=== PATIENT | male | born 1945 | race Caucasian/White ===

== ENCOUNTER 2018-04-17 11:49 | Inpatient (IN) | payer MEDICARE, OTHER ==
[~2018-04-17] VITALS: Ht 172.7 cm; Wt 76.0 kg
--- NOTE | 2018-04-17 12:20 | EKG ---
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
--- NOTE | 2018-04-17 12:28 | PHYS DOC ---
Adult General Chief Complaint Chief Complaint: SYNCOPE HPI HPI Patient is a 72 year old m who presents to the ED for evaluation s/p syncopal episode. pt with pmhx significant for CAD s/p 5 vessel CABG, A-fib on Xarelto, and CHF with EF of 20% s/p defibrillator placement. Pt reports compliance with Xarelto with no missed doses in the past 2 weeks. Takes Lasix 80mg QD. Reports significant edema approx 3 weeks ago that has been slowly improving. States that Mobile Sales Technician took him off of all BP medications 2/2 hypotension. Reports intermittently has symptomatic orthostatic hypotension. Resides in [place]. Currently traveling to [place] for hunting. Woke up and drove from [place] this am. Was at [employer] to buy a hunting license. Has no recall of events leading to him having a syncopal episode in the parking lot. Found by bystander. Was unconscious but had a pulse. Pt unable to recall any preceding CP , SOB, palpitations. Does not recall his defib discharging. Denies any current pain. States that he feels his baseline SOB. Uses 2L of O2 PRN at home. Tdap UTD Review of Systems Review of Systems Constitutional: Denies fever or chills [] Eyes: Denies change in visual acuity, redness, or eye pain [] HENT: Denies nasal congestion or sore throat [] Respiratory: Denies cough or shortness of breath [] Cardiovascular: No chest pain, no orthopnea, LE edema present GI: Denies abdominal pain, nausea, vomiting, bloody stools or diarrhea [] : Denies dysuria or hematuria [] Musculoskeletal: Denies back pain or joint pain [] Integument: Denies rash or skin lesions [] Neurologic: Denies headache, focal weakness or sensory changes [] Endocrine: Denies polyuria or polydipsia [] All other systems were reviewed and found to be within normal limits, except as documented in this note. Current Medications Current Medications Current Medications Medications (Trade) Dose Ordered Sig/Roxanne Start Time Stop Time Status Last Admin Dose Admin Potassium Chloride (Klor-Con) 40 meq 1X ONCE 04/17/18 13:30 04/17/18 13:31 DC 04/17/18 13:48 40 MEQ Allergies Allergies Allergies Coded Allergies Type Severity Reaction Last Updated Verified No Known Drug Allergies 11/1/18 No Physical Exam Physical Exam Constitutional: Well developed, well nourished, non-toxic appearing HENT: Normocephalic, 3 x 4 cm hematoma to the left temporal region with overlying abrasion Eyes: PERRLA, EOMI, Neck: C-collar in place, no midline spinal tenderness Cardiovascular: Irregularly irregular rate with +2 out of 4 bilateral radial pulses. Lungs & Thorax: Bilateral breath sounds clear to auscultation [] Abdomen: Bowel sounds normal, soft, no tenderness, no masses, no pulsatile masses. [] Skin: Abrasion to scalp as noted above. Abrasion to left elbow. Back: No tenderness, no CVA tenderness. [] Extremities: Trace pitting edema to bilateral lower extremities, bilateral DP pulses +2 out of 4, intact range of motion of major joints. Neurologic: Alert and oriented X 3, nerves II through XII intact bilaterally, normal motor function, normal sensory function, no focal deficits noted. [] Psychologic: Affect normal, judgement normal, mood normal. [] Current Patient Data Vital Signs Vital Signs Date Time Temp Pulse Resp B/P (MAP) Pulse Ox O2 Delivery O2 Flow Rate FiO2 04/17/18 11:49 97.9 72 24 104/76 (85) 92 Room Air 97.9 Lab Values Laboratory Tests Test 04/17/18 12:02 White Blood Count 8.4 x10^3/uL (4.0-11.0) Red Blood Count 4.79 x10^6/uL (4.30-5.70) Hemoglobin 15.1 g/dL (13.0-17.5) Hematocrit 45.4 % (39.0-53.0) Mean Corpuscular Volume 95 fL (79-100) Mean Corpuscular Hemoglobin 32 pg (25-35) Mean Corpuscular Hemoglobin Concent 33 g/dL (31-37) Red Cell Distribution Width 19.2 % (11.5-14.5) H Platelet Count 119 x10^3/uL (140-400) L Neutrophils (%) (Auto) 72 % (31-73) Lymphocytes (%) (Auto) 12 % (24-48) L Monocytes (%) (Auto) 13 % (0-9) H Eosinophils (%) (Auto) 2 % (0-3) Basophils (%) (Auto) 1 % (0-3) Neutrophils # (Auto) 6.0 x10^3uL (1.8-7.7) Lymphocytes # (Auto) 1.0 x10^3/uL (1.0-4.8) Monocytes # (Auto) 1.1 x10^3/uL (0.0-1.1) Eosinophils # (Auto) 0.2 x10^3/uL (0.0-0.7) Basophils # (Auto) 0.1 x10^3/uL (0.0-0.2) Prothrombin Time 33.4 SEC (11.7-14.0) H Prothrombin Time INR 3.4 (0.8-1.1) H PTT 48 SEC (24-38) H Sodium Level 142 mmol/L (136-145) Potassium Level 2.9 mmol/L (3.5-5.1) *L Chloride Level 97 mmol/L (98-107) L Carbon Dioxide Level 34 mmol/L (21-32) H Anion Gap 11 (6-14) Blood Urea Nitrogen 81 mg/dL (8-26) H Creatinine 3.2 mg/dL (0.7-1.3) H Estimated GFR (Cockcroft-Gault) 19.2 BUN/Creatinine Ratio 25 (6-20) H Glucose Level 108 mg/dL (70-99) H Calcium Level 9.0 mg/dL (8.5-10.1) Magnesium Level 2.6 mg/dL (1.8-2.4) H Total Bilirubin 3.1 mg/dL (0.2-1.0) H Aspartate Amino Transferase (AST) 25 U/L (15-37) Alanine Aminotransferase (ALT) 23 U/L (16-63) Alkaline Phosphatase 118 U/L (46-116) H Troponin I Quantitative 0.040 ng/mL (0.000-0.055) AB-Ltr-K-Type Natriuretic Peptide 3200 pg/mL (0-124) H Total Protein 7.8 g/dL (6.4-8.2) Albumin 3.1 g/dL (3.4-5.0) L Albumin/Globulin Ratio 0.7 (1.0-1.7) L Lipase 267 U/L (73-393) Ethyl Alcohol Level < 10 mg/dL (0-10) Laboratory Tests 04/17/18 12:02 Laboratory Tests 04/17/18 12:02 EKG EKG []EKG: Normal sinus rhythm, right bundle branch block, heart rate 100, no significant ST segment changes. Radiology/Procedures Radiology/Procedures CXR: Impression: 1. There are small bilateral pleural effusions. There is airspace opacity bilaterally greater of the lung bases which may be due to edema or infiltrates, also perihilar opacity which suggestive of edema. Constellation of findings could be due to left ventricular failure. There is nonspecific opacity at the right lung apex possibly pleural based, attention on follow-up advised as underlying mass not excluded. Electronically signed by: Soren Antunez MD (04/17/2018 12:44 PM) [facility] [] CT Head/Neck Impression: 1. No acute intracranial abnormality is identified. Cervical spine CT Comparison: None Findings: No acute cervical spine fracture is identified. Cervical vertebral body stature is preserved. There is minimal grade 1 anterior spondylolisthesis C3-C4 and C4-5. There is multilevel cervical facet degenerative change. There is moderate to severe narrowing of the left C3-4 neural foramen due to facet and uncovertebral degenerative change, minimal narrowing on the left at C4-5. No significant cervical spinal stenosis is identified on this nonmyelographic exam. Atlanto-axial distance is within normal limits. There is appropriate alignment of lateral masses of C1 relative to C2. Occipital condylar-C1 relationship is maintained. There is mild degenerative disc disease greater posteriorly at C3-4, also very minimally at C4-5. There is probable moderate size right pleural effusion which is not fully included. There is atherosclerotic calcification carotid arteries in the neck bilaterally. Impression: 1. No acute cervical spine fracture is identified. 2. There is moderate to severe narrowing of the left C3-4 neural foramen due to facet and uncovertebral degenerative change. 3. Not fully included, there is likely moderate size right pleural effusion. Electronically signed by: Soren Antunez MD (04/17/2018 1:01 PM) [facility] Course & Med Decision Making Course & Med Decision Making Pertinent Labs and Imaging studies reviewed. (See chart for details) []Pt with significant syncopal event in setting of significant underlying cardiac history. Pt unable to recall all home medications. I attempted to speak with the pt's Mobile Sales Technician but he was not in the office today and the staff refused to provide any information for continuity of care. Records request was sent. Patient has remained slightly hypotensive with systolic blood pressure 85- 90. Patient denies any symptoms and states that this is his baseline. Patient has not had any chest pain. Interrogation of his [employer] device has been requested to determine if it discharged but has not been completed. Discussed with Dr. Morales technology professional for hospital service who is agreeable to admission. Patient will be admitted to acute telemetry bed as he remains somewhat critically ill. Potassium correction started in the ED. Pt confirmed Full Code status. Dragon Disclaimer Dragon Disclaimer This electronic medical record was generated, in whole or in part, using a voice recognition dictation system. Departure Departure Impression: Primary Impression: Syncope Additional Impression: Hypokalemia Disposition: ADMITTED INPATIENT Admitting Physician: Other Condition: GUARDED Problem Qualifiers NOEMÍ SHELTON DO Apr 17, 2018 12:28
[2018-04-17 12:29] LABS: BASO # 0.1 x10^3/uL (0.0-0.2); BASO % 1 % (0-3); EOS # 0.2 x10^3/uL (0.0-0.7); EOS % 2 % (0-3); HEMATOCRIT 45.4 % (39.0-53.0); HEMOGLOBIN 15.1 g/dL (13.0-17.5); LYMPH % 12 % (24-48); MEAN CORPUSCULAR HEMOGLOBIN 32 pg (25-35); MEAN CORPUSCULAR HGB CONC 33 g/dL (31-37); MEAN CORPUSCULAR VOLUME 95 fL (79-100); MONO # 1.1 x10^3/uL (0.0-1.1); MONO % 13 % (0-9); NEUT % 72 % (31-73); PLATELET COUNT 119 x10^3/uL (140-400); RED BLOOD COUNT 4.79 x10^6/uL (4.30-5.70); RED CELL DISTRIBUTION WIDTH 19.2 % (11.5-14.5); WHITE BLOOD COUNT 8.4 x10^3/uL (4.0-11.0)
[2018-04-17 12:43] LABS: ALBUMIN 3.1 g/dL (3.4-5.0); ALBUMIN/GLOBULIN RATIO 0.7 (1.0-1.7); CREATININE 3.2 mg/dL (0.7-1.3); GFR 19.2; MAGNESIUM 2.6 mg/dL (1.8-2.4); TOTAL BILIRUBIN 3.1 mg/dL (0.2-1.0); TOTAL PROTEIN 7.8 g/dL (6.4-8.2)
[2018-04-17 12:47] LABS: POTASSIUM 2.9 mmol/L (3.5-5.1)
--- NOTE | 2018-04-17 12:47 | RAD ---
CHEST AP ONLY History: SYNCOPE Comparison: None. Findings: Single view of the chest is submitted. There has been a median sternotomy. There is right electronic cardiac device. Pericardial cardiac silhouette is somewhat enlarged. There are small bilateral pleural effusions. There is airspace opacity of the bilateral lung bases greater on the right, also mild perihilar opacity bilaterally. There is also mild right apical opacity, possibly pleural-based. Impression: 1. There are small bilateral pleural effusions. There is airspace opacity bilaterally greater of the lung bases which may be due to edema or infiltrates, also perihilar opacity which suggestive of edema. Constellation of findings could be due to left ventricular failure. There is nonspecific opacity at the right lung apex possibly pleural based, attention on follow-up advised as underlying mass not excluded. Electronically signed by: Soren Antunez MD (04/17/2018 12:44 PM) [facility]
[2018-04-17 12:55] LABS: PROTHROMBIN TIME PATIENT 33.4 SEC (11.7-14.0)
--- NOTE | 2018-04-17 13:04 | RAD ---
CT head and cervical spine without contrast History: TRAUMA/SYNCOPE Technique: Noncontrast CT imaging was performed of the head and cervical spine. Multiplanar reconstruction images are submitted. Exposure: One or more of the following individualized dose reduction techniques were utilized for this examination: 1. Automated exposure control 2. Adjustment of the mA and/or kV according to patient size 3. Use of iterative reconstruction technique. Head CT Comparison: None Findings: No acute extra-axial or parenchymal hemorrhage is identified. There is no significant intra-axial mass effect, midline shift, or extra-axial fluid collection. The carrillo-white differentiation of the major vascular territories is preserved. Ventricular size is within normal limits. There is mild supratentorial involutional change. The mastoid air cells and the visualized paranasal sinuses are aerated. There is no significant focal calvarial abnormality. There is left parietal region scalp hematoma. Impression: 1. No acute intracranial abnormality is identified. Cervical spine CT Comparison: None Findings: No acute cervical spine fracture is identified. Cervical vertebral body stature is preserved. There is minimal grade 1 anterior spondylolisthesis C3-C4 and C4-5. There is multilevel cervical facet degenerative change. There is moderate to severe narrowing of the left C3-4 neural foramen due to facet and uncovertebral degenerative change, minimal narrowing on the left at C4-5. No significant cervical spinal stenosis is identified on this nonmyelographic exam. Atlanto-axial distance is within normal limits. There is appropriate alignment of lateral masses of C1 relative to C2. Occipital condylar-C1 relationship is maintained. There is mild degenerative disc disease greater posteriorly at C3-4, also very minimally at C4-5. There is probable moderate size right pleural effusion which is not fully included. There is atherosclerotic calcification carotid arteries in the neck bilaterally. Impression: 1. No acute cervical spine fracture is identified. 2. There is moderate to severe narrowing of the left C3-4 neural foramen due to facet and uncovertebral degenerative change. 3. Not fully included, there is likely moderate size right pleural effusion. Electronically signed by: Soren Antunez MD (04/17/2018 1:01 PM) [id number]
[2018-04-17] MEDS ORDERED: POTASSIUM CHLORIDE 20 MEQ TABLET.ER. PO ONE (13:30)
[2018-04-17 14:36] LABS: BILIRUBIN,URINE NEGATIVE (NEG); CLARITY,URINE CLEAR; COLOR,URINE YELLOW; NITRITE,URINE NEGATIVE (NEG); PH,URINE 6.5; PROTEIN,URINE NEGATIVE (NEG-TRACE)
[2018-04-17 15:08] LABS: BACTERIA,URINE 0 /HPF (0-FEW); HYALINE CASTS, URINE FEW /HPF; RBC,URINE RARE /HPF (0-2); WBC,URINE RARE /HPF (0-4)
--- NOTE | 2018-04-17 16:03 | PDOC1 ---
History and Physical Date of Admission Date of Admission DATE: 04/17/18 TIME: 16:02 Source Source: Patient History of Present Illness History of Present Illness 72 yo M w/ PMHx CAD s/p 5 vessel CABG, A-fib on Xarelto, reduced ejection fraction heart failure (EF 20%) s/p AICD placement, HTN, chronic hypoxic respiratory failure, prior mycobacterial infection who presents to the ED for evaluation s/p syncopal episode. Pt reports compliance with Xarelto with no missed doses in the past 2 weeks. Takes Lasix 80mg QD and significant edema approx 3 weeks ago that has been slowly improving after he started taking zaroxyln 10mg daily, now feels vast improvement. He has been symptomatically orthostatic and stopped in [place] last night due to some dizziness. 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 Currently traveling for a hunting trip. Woke up and drove from [place] this am. Was at [employer] to buy a hunting license today and awoke in the ED. Per EMS had a witnessed syncopal episode in the parking lot. Was unconscious but had a pulse. No prodromal symptoms, does not recall his defib discharging, states it never has before discharged. He denies palpitations, CP, does endorse shortness of breath.. 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 Denies any current pain. States that he feels his baseline SOB. Uses 2L of O2 in a concentrator he was just prescribed to have. He was found in ED positive for orthostasis and with Cr of 3.2 and potassium of 2.9, replaced. CT head showed no intracranial abnormality and 1. No acute cervical spine fracture is identified. 2. There is moderate to severe narrowing of the left C3- 4 neural foramen due to facet and uncovertebral degenerative change. 3. Not fully included, there is likely moderate size right pleural effusion. 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 Past Medical History Cardiovascular: CAD (CABG x5), CHF, HTN Pulmonary: Pneumonia (Atypical mycobacterial PNA) GI: No pertinent hx Heme/Onc: No pertinent hx Hepatobiliary: No pertinent hx Psych: No pertinent hx Infectious disease: Other (Atypical pneumonia) ENT: Allergic Rhinitis Renal/: No pertinent hx Endocrine: No pertinent hx Dermatology: No pertinent hx Past Surgical History Past Surgical History: Pacemaker (AICD), CABG Family History Family History: Chronic Bronchitis, Coronary Artery Disease Social History Smoke: No ALCOHOL: none Drugs: None Current Problem List Problem List Problems Medical Problems: (1) Hypokalemia Status: Acute Current Medications Current Medications Current Medications Potassium Chloride (Klor-Con) 40 meq 1X ONCE PO Last administered on at 13:48; Start 04/17/18 at 13:30; Stop 04/17/18 at 13:31; Status DC Allergies Allergies: Coded Allergies: No Known Drug Allergies (Unverified , 04/17/18) ROS General: YES: Fatigue, Malaise; No: Chills, Night Sweats, Appetite, Other PSYCHOLOGICAL ROS: No: Anxiety, Behavioral Disorder, Concentration difficultie , Decreased libido, Depression, Disorientation, Hallucinations, Hostility, Irritablity, Memory difficulties, Mood Swings, Obsessive thoughts, Physical abuse, Sexual abuse, Sleep disturbances, Suicidal ideation, Other Eyes: No Blurry vision, No Decreased vision, No Double vision, No Dry eyes, No Excessive tearing, No Eye Pain, No Itchy Eyes, No Loss of vision, No Photophobia , No Scotomata, No Uses contacts, No Uses glasses, No Other HEENT: No: Heacaches, Visual Changes, Hearing change, Nasal congestion, Nasal discharge, Oral lesions, Sinus pain, Sore Throat, Epistaxis, Sneezing, Snoring, Tinnitus, Vertigo, Vocal changes, Other ALLERGY AND IMMUNOLOGY: YES: Nasal Congestion; No: Hives, Insect Bite Sensitivity, Itchy/Watery Eyes, Post Nasal Drip, Seasonal Allergies, Other Hematological and Lymphatic: No: Bleeding Problems, Blood Clots, Blood Transfusions, Brusing, Night Sweats, Pallor, Swollen Lymph Nodes, Other ENDOCRINE: No: Breast Changes, Galactorrhea, Hair Pattern Changes, Hot Flashes , Malaise/lethargy, Mood Swings, Palpitations, Polydipsia/polyuria, Skin Changes , Temperature Intolerance, Unexpected Weight Changes, Other Respiratory: YES: Cough, Shortness of breath; No: Hemoptysis, Orthopnea, Pleuritic Pain, SOB with excertion, Sputum Changes , Stridor, Tachypnea, Wheezing, Other Cardiovascular: yes Orthopnea, yes Edema, yes Lt Headedness; No Chest Pain, No Palpitations, No Paroxysmal Noc. Dyspnea, No Other Gastrointestinal: No Nausea, No Vomiting, No Abdominal Pain, No Diarrhea, No Constipation, No Melena, No Hematochezia, No Other Genitourinary: No Dysuria, No Frequency, No Incontinence, No Hematuria, No Retention, No Discharge, No Urgency, No Pain, No Flank Pain, No Other, No , No , No , No , No , No , No Neurological: No Behavorial Changes, No Bowel/Bladder ControlChng, No Confusion , No Dizziness, No Gait Disturbance, No Headaches, No Impaired Coord/balance, No Memory Loss, No Numbness/Tingling, No Seizures, No Speech Problems, No Tremors, No Visual Changes, No Weakness, No Other Skin: No Dry Skin, No Eczema, No Hair Changes, No Lumps, No Mole Changes, No Mottling, No Nail Changes, No Pruritus, No Rash, No Skin Lesion Changes, No Other, No Acne Physical Exam General: Alert, Oriented X3, Cooperative, No acute distress HEENT: PERRLA, EOMI, Mucous membr. moist/pink, Other (Left posterior abrasion on occiput) Lungs: Other (Decreased bibasilar breath sounds, fine crackles, no wheezes) Heart: S1S2, RRR, murmurs (2/6 CECILY), no jug vein distention Abdomen: Normal bowel sounds, Soft, No tenderness, No hepatosplenomegaly, No masses Extremities: No clubbing, No cyanosis, Normal pulses, No tenderness/swelling, Other (1+ edema up to knees bilaterally) Skin: Other (Stasis dermatitis) Neuro: Normal gait, Normal speech, Strength at 5/5 X4 ext, Normal tone, Sensation intact, Cranial nerves 3-12 NL, Reflexes 2+ Psych/Mental Status: Mental status NL, Mood NL Vitals Vitals Vital Signs Date Time Temp Pulse Resp B/P (MAP) Pulse Ox O2 Delivery O2 Flow Rate FiO2 04/17/18 14:00 90 18 96 Nasal Cannula 2.0 04/17/18 13:30 111/55 (73) 04/17/18 11:49 97.9 97.9 Labs Labs Laboratory Tests Test 04/17/18 12:02 11/1/18 14:00 White Blood Count 8.4 x10^3/uL (4.0-11.0) Red Blood Count 4.79 x10^6/uL (4.30-5.70) Hemoglobin 15.1 g/dL (13.0-17.5) Hematocrit 45.4 % (39.0-53.0) Mean Corpuscular Volume 95 fL (79-100) Mean Corpuscular Hemoglobin 32 pg (25-35) Mean Corpuscular Hemoglobin Concent 33 g/dL (31-37) Red Cell Distribution Width 19.2 % (11.5-14.5) Platelet Count 119 x10^3/uL (140-400) Neutrophils (%) (Auto) 72 % (31-73) Lymphocytes (%) (Auto) 12 % (24-48) Monocytes (%) (Auto) 13 % (0-9) Eosinophils (%) (Auto) 2 % (0-3) Basophils (%) (Auto) 1 % (0-3) Neutrophils # (Auto) 6.0 x10^3uL (1.8-7.7) Lymphocytes # (Auto) 1.0 x10^3/uL (1.0-4.8) Monocytes # (Auto) 1.1 x10^3/uL (0.0-1.1) Eosinophils # (Auto) 0.2 x10^3/uL (0.0-0.7) Basophils # (Auto) 0.1 x10^3/uL (0.0-0.2) Prothrombin Time 33.4 SEC (11.7-14.0) Prothromb Time International Ratio 3.4 (0.8-1.1) Activated Partial Thromboplast Time 48 SEC (24-38) Sodium Level 142 mmol/L (136-145) Potassium Level 2.9 mmol/L (3.5-5.1) Chloride Level 97 mmol/L (98-107) Carbon Dioxide Level 34 mmol/L (21-32) Anion Gap 11 (6-14) Blood Urea Nitrogen 81 mg/dL (8-26) Creatinine 3.2 mg/dL (0.7-1.3) Estimated GFR (Cockcroft-Gault) 19.2 BUN/Creatinine Ratio 25 (6-20) Glucose Level 108 mg/dL (70-99) Calcium Level 9.0 mg/dL (8.5-10.1) Magnesium Level 2.6 mg/dL (1.8-2.4) Total Bilirubin 3.1 mg/dL (0.2-1.0) Aspartate Amino Transf (AST/SGOT) 25 U/L (15-37) Alanine Aminotransferase (ALT/SGPT) 23 U/L (16-63) Alkaline Phosphatase 118 U/L (46-116) Troponin I Quantitative 0.040 ng/mL (0.000-0.055) QZ-Osb-S-Type Natriuretic Peptide 3200 pg/mL (0-124) Total Protein 7.8 g/dL (6.4-8.2) Albumin 3.1 g/dL (3.4-5.0) Albumin/Globulin Ratio 0.7 (1.0-1.7) Lipase 267 U/L (73-393) Ethyl Alcohol Level < 10 mg/dL (0-10) Urine Collection Type Unknown Urine Color Yellow Urine Clarity Clear Urine pH 6.5 Urine Specific Vader 1.010 Urine Protein Negative mg/dL (NEG-TRACE) Urine Glucose (UA) Negative mg/dL (NEG) Urine Ketones (Stick) Negative mg/dL (NEG) Urine Blood Negative (NEG) Urine Nitrite Negative (NEG) Urine Bilirubin Negative (NEG) Urine Urobilinogen Dipstick 1.0 mg/dL (0.2 mg/dL) Urine Leukocyte Esterase Negative (NEG) Urine RBC Rare /HPF (0-2) Urine WBC Rare /HPF (0-4) Urine Bacteria 0 /HPF (0-FEW) Urine Hyaline Casts Few /HPF Laboratory Tests Test 04/17/18 12:02 04/17/18 14:00 White Blood Count 8.4 x10^3/uL (4.0-11.0) Red Blood Count 4.79 x10^6/uL (4.30-5.70) Hemoglobin 15.1 g/dL (13.0-17.5) Hematocrit 45.4 % (39.0-53.0) Mean Corpuscular Volume 95 fL (79-100) Mean Corpuscular Hemoglobin 32 pg (25-35) Mean Corpuscular Hemoglobin Concent 33 g/dL (31-37) Red Cell Distribution Width 19.2 % (11.5-14.5) Platelet Count 119 x10^3/uL (140-400) Neutrophils (%) (Auto) 72 % (31-73) Lymphocytes (%) (Auto) 12 % (24-48) Monocytes (%) (Auto) 13 % (0-9) Eosinophils (%) (Auto) 2 % (0-3) Basophils (%) (Auto) 1 % (0-3) Neutrophils # (Auto) 6.0 x10^3uL (1.8-7.7) Lymphocytes # (Auto) 1.0 x10^3/uL (1.0-4.8) Monocytes # (Auto) 1.1 x10^3/uL (0.0-1.1) Eosinophils # (Auto) 0.2 x10^3/uL (0.0-0.7) Basophils # (Auto) 0.1 x10^3/uL (0.0-0.2) Prothrombin Time 33.4 SEC (11.7-14.0) Prothromb Time International Ratio 3.4 (0.8-1.1) Activated Partial Thromboplast Time 48 SEC (24-38) Sodium Level 142 mmol/L (136-145) Potassium Level 2.9 mmol/L (3.5-5.1) Chloride Level 97 mmol/L (98-107) Carbon Dioxide Level 34 mmol/L (21-32) Anion Gap 11 (6-14) Blood Urea Nitrogen 81 mg/dL (8-26) Creatinine 3.2 mg/dL (0.7-1.3) Estimated GFR (Cockcroft-Gault) 19.2 BUN/Creatinine Ratio 25 (6-20) Glucose Level 108 mg/dL (70-99) Calcium Level 9.0 mg/dL (8.5-10.1) Magnesium Level 2.6 mg/dL (1.8-2.4) Total Bilirubin 3.1 mg/dL (0.2-1.0) Aspartate Amino Transf (AST/SGOT) 25 U/L (15-37) Alanine Aminotransferase (ALT/SGPT) 23 U/L (16-63) Alkaline Phosphatase 118 U/L (46-116) Troponin I Quantitative 0.040 ng/mL (0.000-0.055) DJ-Meo-R-Type Natriuretic Peptide 3200 pg/mL (0-124) Total Protein 7.8 g/dL (6.4-8.2) Albumin 3.1 g/dL (3.4-5.0) Albumin/Globulin Ratio 0.7 (1.0-1.7) Lipase 267 U/L (73-393) Ethyl Alcohol Level < 10 mg/dL (0-10) Urine Collection Type Unknown Urine Color Yellow Urine Clarity Clear Urine pH 6.5 Urine Specific Vader 1.010 Urine Protein Negative mg/dL (NEG-TRACE) Urine Glucose (UA) Negative mg/dL (NEG) Urine Ketones (Stick) Negative mg/dL (NEG) Urine Blood Negative (NEG) Urine Nitrite Negative (NEG) Urine Bilirubin Negative (NEG) Urine Urobilinogen Dipstick 1.0 mg/dL (0.2 mg/dL) Urine Leukocyte Esterase Negative (NEG) Urine RBC Rare /HPF (0-2) Urine WBC Rare /HPF (0-4) Urine Bacteria 0 /HPF (0-FEW) Urine Hyaline Casts Few /HPF Images Images CT head and neck 1. No acute cervical spine fracture is identified. 2. There is moderate to severe narrowing of the left C3-4 neural foramen due to facet and uncovertebral degenerative change. 3. Not fully included, there is likely moderate size right pleural effusion. CXR - There has been a median sternotomy. There is right electronic cardiac device. Pericardial cardiac silhouette is somewhat enlarged. There are small bilateral pleural effusions. There is airspace opacity of the bilateral lung bases greater on the right, also mild perihilar opacity bilaterally. There is also mild right apical opacity, possibly pleural-based. Impression: 1. There are small bilateral pleural effusions. There is airspace opacity bilaterally greater of the lung bases which may be due to edema or infiltrates, also perihilar opacity which suggestive of edema. Constellation of findings could be due to left ventricular failure. There is nonspecific opacity at the right lung apex possibly pleural based, attention on follow-up advised as underlying mass not excluded. VTE Prophylaxis Ordered VTE Prophylaxis Devices: No VTE Pharmacological Prophylaxi: Yes Assessment/Plan Assessment/Plan Syncope and collapse - likely cardiac vs orthostatic. Needs AICD interrogation. Will cont cardiac meds, hold coreg for SBP < 90mmHg. Hold lasix and zaroxyln. Echo. Consult cardiology Acute renal failure - appears to be vasomotor nephropathy secondary to his large diuretic dosing. Hold diuretics for tonight, follow renal panel daily Hypokalemia - 2.9, replaced, will check mag and check K and mag daily. Could have played a role in arrhythmia causing his syncope CAD - CABG x5 somewhat stable on meds. will cont and monitor CHF - reduced EF, 20% by his report, states he is a possible LVAD/Transplant candidate per his rv servicer. Will need to interrogate his AICD. Cont BB, ASA , statin, need to hold LATISHA/ARB for renal insufficiency, will reduce dosing of his xarelto as well if ok with cardiology. 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 Wean O2 to 89% as tolerated FEN - Cardiac diet PPX - heparin FULL CODE Inpatient as he is a very chronically ill individual with acute renal failure, will be inpatient for at least 2 midnights. MACK HONEYCUTT MD Apr 17, 2018 16:02
[2018-04-17 20:00] VITALS: BP 103/76
[2018-04-17] MEDS ORDERED: MILK175T PO (20:32)
[2018-04-17] MEDS ORDERED: ONDANSETRON PF 4 MG/2 ML VIAL. IV PRN (21:45)
[2018-04-17] MEDS ORDERED: ACETAMINOPHEN 325 MG TABLET. PO PRN (21:45)
[2018-04-17] MEDS ORDERED: MORPHINE SULFATE 2 MG/ML VIAL. IV PRN (21:45)
[2018-04-17] MEDS ORDERED: 0.9 % SODIUM CHLORIDE 10 ML DISP.SYRIN. IV PRN (21:45)
[2018-04-17] MEDS: TEMAZEPAM 7.5 MG CAPSULE PO PRN (22:38)
[2018-04-17 23:41] VITALS: BP 91/64
[2018-04-17 23:42] VITALS: BP 88/52
[2018-04-17 23:43] VITALS: BP 92/60
[2018-04-18] VITALS (7 sets, daily range): BP systolic 83–108; BP diastolic 52–76
[2018-04-18] MEDS ORDERED: METO10TA5 PO (00:21)
[2018-04-18] MEDS ORDERED: RIVA10TA PO (00:21)
[2018-04-18] MEDS ORDERED: SIMV10TA3 PO (00:39)
[2018-04-18] MEDS ORDERED: COCO1000 PO (00:40)
[2018-04-18] MEDS ORDERED: UBID100C26 PO (00:40)
[2018-04-18] MEDS ORDERED: POTA99TA3 PO (00:40)
[2018-04-18] MEDS ORDERED: LACT1CAP24 PO (00:40)
[2018-04-18] MEDS ORDERED: AZEL137S3 NS (00:40)
[2018-04-18] MEDS ORDERED: FURO80TA3 PO (00:40)
[2018-04-18] MEDS ORDERED: BIOT25006 PO (00:40)
[2018-04-18] MEDS ORDERED: CARV25TA2 PO (00:40)
[2018-04-18] MEDS ORDERED: OMEG-165 PO (00:40)
[2018-04-18] MEDS ORDERED: [UNRECOGNIZED DRUG - CODE] PO (00:40)
[2018-04-18] MEDS ORDERED: CIDE600C PO (00:40)
[2018-04-18] MEDS ORDERED: MULT-690 PO (00:40)
[2018-04-18] MEDS ORDERED: FLAX10003 PO (00:40)
[2018-04-18] MEDS ORDERED: CINN500C2 PO (00:40)
[2018-04-18] MEDS ORDERED: TURM1CAP PO (00:40)
[2018-04-18] MEDS ORDERED: GARL10002 PO (00:40)
[2018-04-18] MEDS ORDERED: FLUT16SP NS (00:41)
[2018-04-18] MEDS ORDERED: CARVEDILOL 12.5 MG TABLET. PO SCH (08:00)
[2018-04-18 08:52] LABS: CALCIUM 8.4 mg/dL (8.5-10.1); CREATININE 2.9 mg/dL (0.7-1.3); GFR 21.6
[2018-04-18] MEDS ORDERED: NON FORMULARY ITEM (Potassium Gluconate 99 MG) PO SCH (09:00)
[2018-04-18] MEDS ORDERED: RIVAROXABAN 10 MG TABLET. PO SCH ×2 (09:00→21:00)
[2018-04-18] MEDS ORDERED: HEPARIN for SUB-Q USE 5,000 UNIT/ML VIAL. SQ SCH (09:00)
[2018-04-18] MEDS: SENNOSIDES/DOCUSATE 8.6/50MG TABLET. PO SCH ×2 (09:00→20:23)
[2018-04-18 09:01] LABS: POTASSIUM 2.9 mmol/L (3.5-5.1)
--- NOTE | 2018-04-18 09:02 | PDOC2 ---
NEUROLOGY CONSULT Date of Admission Date of Admission DATE: 04/18/18 TIME: 08:56 Reason for Consult Reason for Consult: Syncope, probably cardiac Referring Physician Referring Physician: Dr. Manjarrez Source Source: Chart review, Patient History of Present Illness History of Present Illness The patient is a 72-year-old right-handed male who fainted in the parking lot at [facility] yesterday. He has a known cardiomyopathy with ejection fraction of 20% with a true fibrillation, status-post a ICD placement and severe corner are diseased as post bypass surgery. He has fainted before. His defibrillator did not go off. There was no convulsive activity noted by onlookers. There is no time biting. There was no postictal confusion. He did have incontinence. He denies any history of stroke, seizure, head injury, transient ischemic attack symptoms. He's feeling better now, but his blood pressure is still running low this morning. 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 No alcohol or tobacco. Current Medications Current Medications Current Medications Potassium Chloride (Klor-Con) 40 meq 1X ONCE PO Last administered on at 13:48; Start 04/17/18 at 13:30; Stop 04/17/18 at 13:31; Status DC Sodium Chloride (Normal Saline Flush) 3 ml PRN DAILY PRN IV AFTER MEDS AND BLOOD DRAWS; Start 04/17/18 at 21:45 Ondansetron HCl (Zofran) 4 mg PRN Q6HRS PRN IV NAUSEA/VOMITING; Start 04/17/18 at 21:45 Morphine Sulfate (Morphine Sulfate) 2 mg PRN Q1HR PRN IV PAIN; Start 04/17/18 at 21:45 Acetaminophen (Tylenol) 650 mg PRN Q6HRS PRN PO Headaches, Temp > 101.5F; Start 04/17/18 at 21:45 Senna/Docusate Sodium (Senna Plus) 1 tab BID PO ; Start 11/2/18 at 09:00 Heparin Sodium (Porcine) (Heparin Sodium) 5,000 unit Q12HR SQ ; Start 04/18/18 at 09:00 Temazepam (Restoril) 7.5 mg PRN QHS PRN PO INSOMNIA Last administered on at 22:38; Start 04/17/18 at 22:00 Rivaroxaban (Xarelto) 10 mg DAILY PO ; Start 04/18/18 at 09:00 Simvastatin (Zocor) 5 mg HS PO ; Start 04/18/18 at 21:00 Carvedilol (Coreg) 25 mg BIDWMEALS PO ; Start 04/18/18 at 08:00 Non-Formulary Medication (Potassium Gluconate ) 99 mg DAILY PO ; Start 04/18/18 at 09:00; Status UNV Active Scripts Active Reported Fluticasone Propionate Nasal [place] (Fluticasone Propionate) 16 Gm [place].susp 2 [place] NS DAILY Potassium Gluconate 99 Mg Tablet 99 Mg PO DAILY Biotin 2,500 Mcg Capsule 5,000 Mcg PO DAILY Cinnamon (Cinnamon Bark) 500 Mg Capsule 1,000 Mg PO DAILY Apple Cider Vinegar (Cider Vinegar) 600 Mg Capsule 600 Mg PO BID Turmeric Complex 500 mg Cap (Turmeric/Turmeric Ext/Pepr Ext) 1 Each Capsule 1 Each PO DAILY L-Arginine (Arginine Hcl) 1,000 Mg Tablet 1,000 Mg PO DAILY Acidophilus Lactobacillus (Lactobacillus Acidophilus) 1 Each Capsule 1 Each PO DAILY Garlic 1,000 Mg Capsule 1,000 Mg PO DAILYWBKFT Furosemide 80 Mg Tablet 1 Tab PO DAILY Coconut Oil 1,000 Mg Capsule 1,000 Mg PO BID Centrum Silver Men Tablet (Multivit-Min/FA/Lycopen/Lutein) 1 Each Tablet 1 Each PO DAILY Coq-10 (Ubidecarenone) 100 Mg Capsule 100 Mg PO DAILY Flax Oil (Flaxseed Oil) 1,000 Mg Capsule 1,000 Mg PO TIDBFRMEAL Fish Oil 1,000 mg Softgel ([place]-3S/Dha/Epa/Fish Oil) 1 Each Capsule 1 Each PO TIDBFRMEAL Azelastine Hcl 137 Mcg/0.137 Ml [place].pump 2 [place] NS BID Carvedilol 25 Mg Tablet 1 Tab PO BID Simvastatin 10 Mg Tablet 5 Mg PO HS Xarelto (Rivaroxaban) 10 Mg Tablet 1 Tab PO DAILY Metolazone 10 Mg Tablet 10 Mg PO DAILY Milk Thistle 175 Mg Tablet 175 Mg PO DAILY Allergies Allergies: Coded Allergies: No Known Drug Allergies (Unverified , 04/17/18) ROS Review of System Negative for fevers, chills, weight loss, shortness of breath, chest pain, indigestion, hematochezia, melena, dysuria. Full 14-point review systems is negative. Physical Exam Physical Examination General: Well-developed, well-nourished, white male, in no acute distress HEENT: Normocephalic andatraumatic. Temporal arteriespulsatile and nontender. Neck: Supple without bruit, no meningismus Musculoskeletal: Stability:see neurologic. Gait exam:see neurologic. Tone:see neurologic. Strength:see neurologic. Neurological: Mental Status:intact, orientation, memory, attention span/concentration, language, fund of knowledge normal. Cranial Nerves:Pupils equal and reactive to light, extraocular movements areintact, visual cherry are full to confrontation. Facial sensation is normal. There is no facial asymmetry. Vestibulo-ocular reflex is intact. Palate elvates and tongue protrudes in midline. All other cranial related problems are negative except as mentioned before.Reflexes:2+ and symmetric with flexor plantar responses. Motor:5/5 strength with normal tone and bulk. Coordination:Finger-nose finger and heel-to -manzano testing are normal. Rapid alternating movements and fine finger movements are intact. Gait:Normal, including tandem. Sensory:Normal pinprick, vibration , light touch, proprioception. Vitals VITALS Vital Signs Date Time Temp Pulse Resp B/P (MAP) Pulse Ox O2 Delivery O2 Flow Rate FiO2 04/18/18 07:25 97.4 91 18 93/65 (74) 96 Nasal Cannula 2.0 97.4 Labs Labs Laboratory Tests Test 04/17/18 12:02 04/17/18 14:00 04/17/18 17:00 04/18/18 04:00 White Blood Count 8.4 x10^3/uL (4.0-11.0) Red Blood Count 4.79 x10^6/uL (4.30-5.70) Hemoglobin 15.1 g/dL (13.0-17.5) Hematocrit 45.4 % (39.0-53.0) Mean Corpuscular Volume 95 fL (79-100) Mean Corpuscular Hemoglobin 32 pg (25-35) Mean Corpuscular Hemoglobin Concent 33 g/dL (31-37) Red Cell Distribution Width 19.2 % (11.5-14.5) Platelet Count 119 x10^3/uL (140-400) Neutrophils (%) (Auto) 72 % (31-73) Lymphocytes (%) (Auto) 12 % (24-48) Monocytes (%) (Auto) 13 % (0-9) Eosinophils (%) (Auto) 2 % (0-3) Basophils (%) (Auto) 1 % (0-3) Neutrophils # (Auto) 6.0 x10^3uL (1.8-7.7) Lymphocytes # (Auto) 1.0 x10^3/uL (1.0-4.8) Monocytes # (Auto) 1.1 x10^3/uL (0.0-1.1) Eosinophils # (Auto) 0.2 x10^3/uL (0.0-0.7) Basophils # (Auto) 0.1 x10^3/uL (0.0-0.2) Prothrombin Time 33.4 SEC (11.7-14.0) Prothromb Time International Ratio 3.4 (0.8-1.1) Activated Partial Thromboplast Time 48 SEC (24-38) Sodium Level 142 mmol/L (136-145) Potassium Level 2.9 mmol/L (3.5-5.1) Chloride Level 97 mmol/L (98-107) Carbon Dioxide Level 34 mmol/L (21-32) Anion Gap 11 (6-14) Blood Urea Nitrogen 81 mg/dL (8-26) Creatinine 3.2 mg/dL (0.7-1.3) Estimated GFR (Cockcroft-Gault) 19.2 BUN/Creatinine Ratio 25 (6-20) Glucose Level 108 mg/dL (70-99) Calcium Level 9.0 mg/dL (8.5-10.1) Magnesium Level 2.6 mg/dL (1.8-2.4) 2.4 mg/dL (1.8-2.4) Total Bilirubin 3.1 mg/dL (0.2-1.0) Aspartate Amino Transf (AST/SGOT) 25 U/L (15-37) Alanine Aminotransferase (ALT/SGPT) 23 U/L (16-63) Alkaline Phosphatase 118 U/L (46-116) Troponin I Quantitative 0.040 ng/mL (0.000-0.055) 0.043 ng/mL (0.000-0.055) 0.043 ng/mL (0.000-0.055) WW-Ovr-V-Type Natriuretic Peptide 3200 pg/mL (0-124) Total Protein 7.8 g/dL (6.4-8.2) Albumin 3.1 g/dL (3.4-5.0) Albumin/Globulin Ratio 0.7 (1.0-1.7) Lipase 267 U/L (73-393) Ethyl Alcohol Level < 10 mg/dL (0-10) Urine Collection Type Unknown Urine Color Yellow Urine Clarity Clear Urine pH 6.5 Urine Specific [place] 1.010 Urine Protein Negative mg/dL (NEG-TRACE) Urine Glucose (UA) Negative mg/dL (NEG) Urine Ketones (Stick) Negative mg/dL (NEG) Urine Blood Negative (NEG) Urine Nitrite Negative (NEG) Urine Bilirubin Negative (NEG) Urine Urobilinogen Dipstick 1.0 mg/dL (0.2 mg/dL) Urine Leukocyte Esterase Negative (NEG) Urine RBC Rare /HPF (0-2) Urine WBC Rare /HPF (0-4) Urine Bacteria 0 /HPF (0-FEW) Urine Hyaline Casts Few /HPF Laboratory Tests Test 04/17/18 12:02 04/17/18 14:00 04/17/18 17:00 04/18/18 04:00 White Blood Count 8.4 x10^3/uL (4.0-11.0) Red Blood Count 4.79 x10^6/uL (4.30-5.70) Hemoglobin 15.1 g/dL (13.0-17.5) Hematocrit 45.4 % (39.0-53.0) Mean Corpuscular Volume 95 fL (79-100) Mean Corpuscular Hemoglobin 32 pg (25-35) Mean Corpuscular Hemoglobin Concent 33 g/dL (31-37) Red Cell Distribution Width 19.2 % (11.5-14.5) Platelet Count 119 x10^3/uL (140-400) Neutrophils (%) (Auto) 72 % (31-73) Lymphocytes (%) (Auto) 12 % (24-48) Monocytes (%) (Auto) 13 % (0-9) Eosinophils (%) (Auto) 2 % (0-3) Basophils (%) (Auto) 1 % (0-3) Neutrophils # (Auto) 6.0 x10^3uL (1.8-7.7) Lymphocytes # (Auto) 1.0 x10^3/uL (1.0-4.8) Monocytes # (Auto) 1.1 x10^3/uL (0.0-1.1) Eosinophils # (Auto) 0.2 x10^3/uL (0.0-0.7) Basophils # (Auto) 0.1 x10^3/uL (0.0-0.2) Prothrombin Time 33.4 SEC (11.7-14.0) Prothromb Time International Ratio 3.4 (0.8-1.1) Activated Partial Thromboplast Time 48 SEC (24-38) Sodium Level 142 mmol/L (136-145) Potassium Level 2.9 mmol/L (3.5-5.1) Chloride Level 97 mmol/L (98-107) Carbon Dioxide Level 34 mmol/L (21-32) Anion Gap 11 (6-14) Blood Urea Nitrogen 81 mg/dL (8-26) Creatinine 3.2 mg/dL (0.7-1.3) Estimated GFR (Cockcroft-Gault) 19.2 BUN/Creatinine Ratio 25 (6-20) Glucose Level 108 mg/dL (70-99) Calcium Level 9.0 mg/dL (8.5-10.1) Magnesium Level 2.6 mg/dL (1.8-2.4) 2.4 mg/dL (1.8-2.4) Total Bilirubin 3.1 mg/dL (0.2-1.0) Aspartate Amino Transf (AST/SGOT) 25 U/L (15-37) Alanine Aminotransferase (ALT/SGPT) 23 U/L (16-63) Alkaline Phosphatase 118 U/L (46-116) Troponin I Quantitative 0.040 ng/mL (0.000-0.055) 0.043 ng/mL (0.000-0.055) 0.043 ng/mL (0.000-0.055) XZ-Fpt-O-Type Natriuretic Peptide 3200 pg/mL (0-124) Total Protein 7.8 g/dL (6.4-8.2) Albumin 3.1 g/dL (3.4-5.0) Albumin/Globulin Ratio 0.7 (1.0-1.7) Lipase 267 U/L (73-393) Ethyl Alcohol Level < 10 mg/dL (0-10) Urine Collection Type Unknown Urine Color Yellow Urine Clarity Clear Urine pH 6.5 Urine Specific [place] 1.010 Urine Protein Negative mg/dL (NEG-TRACE) Urine Glucose (UA) Negative mg/dL (NEG) Urine Ketones (Stick) Negative mg/dL (NEG) Urine Blood Negative (NEG) Urine Nitrite Negative (NEG) Urine Bilirubin Negative (NEG) Urine Urobilinogen Dipstick 1.0 mg/dL (0.2 mg/dL) Urine Leukocyte Esterase Negative (NEG) Urine RBC Rare /HPF (0-2) Urine WBC Rare /HPF (0-4) Urine Bacteria 0 /HPF (0-FEW) Urine Hyaline Casts Few /HPF Images Images Head CT Comparison: None Findings: No acute extra-axial or parenchymal hemorrhage is identified. There is no significant intra-axial mass effect, midline shift, or extra-axial fluid collection. The carrillo-white differentiation of the major vascular territories is preserved. Ventricular size is within normal limits. There is mild supratentorial involutional change. The mastoid air cells and the visualized paranasal sinuses are aerated. There is no significant focal calvarial abnormality. There is left parietal region scalp hematoma. Impression: 1. No acute intracranial abnormality is identified. Cervical spine CT Comparison: None Findings: No acute cervical spine fracture is identified. Cervical vertebral body stature is preserved. There is minimal grade 1 anterior spondylolisthesis C3-C4 and C4-5. There is multilevel cervical facet degenerative change. There is moderate to severe narrowing of the left C3-4 neural foramen due to facet and uncovertebral degenerative change, minimal narrowing on the left at C4-5. No significant cervical spinal stenosis is identified on this nonmyelographic exam. Atlanto-axial distance is within normal limits. There is appropriate alignment of lateral masses of C1 relative to C2. Occipital condylar-C1 relationship is maintained. There is mild degenerative disc disease greater posteriorly at C3-4, also very minimally at C4-5. There is probable moderate size right pleural effusion which is not fully included. There is atherosclerotic calcification carotid arteries in the neck bilaterally. Impression: 1. No acute cervical spine fracture is identified. 2. There is moderate to severe narrowing of the left C3-4 neural foramen due to facet and uncovertebral degenerative change. 3. Not fully included, there is likely moderate size right pleural effusion. Assessment/Plan Assessment/Plan Impression: Cardiac syncope in a patient with known severe cardiac disease as described above, no evidence that he had a seizure or neurological event. The incontinence of course is not specific for seizures. Cervical spondylosis, no clinical evidence of radiculopathy or myelopathy. Recommendations: No additional neurological studies such as EEG required Neurology will follow only loosely the rest of this hospital stay. Thank you for letting me help with the patient's care. RAVEN TRIPP MD Apr 18, 2018 09:02
[2018-04-18] MEDS ORDERED: POTASSIUM CHLORIDE 20 MEQ TABLET.ER. PO ONE ×3 (09:45→14:00)
[2018-04-18] MEDS ORDERED: RIVA15TA PO (10:46)
[2018-04-18 11:08] LABS: PROTHROMBIN TIME PATIENT 35.5 SEC (11.7-14.0)
--- NOTE | 2018-04-18 11:58 | PDOC2 ---
CARDIAC CONSULT DATE OF CONSULT Date of Consult DATE: 04/18/18 TIME: 11:02 REASON FOR CONSULT Reason for Consult: CHF, syncope with AICD REFERRING PHYSICIAN Referring Physician: Saima SOURCE Source: Chart review, Patient HISTORY OF PRESENT ILLNESS HISTORY OF PRESENT ILLNESS This is a pleasant 72 yo male admitted for complains of passing out. He was coming from [place] which his permanent home stat and coming over for hunting. He stopped probably 6-[address] but admit of not hydrating self enough. He was at the parking lot heading towards [facility] and started feeling lightheaded and leaned on a white jason and the next thing he remembered was people standing in front of him. This appears to be a brief episodes. He had stress test about 2 months ago from his assistant construction superintendent and no other further recommendations after that but indicated that 20% part of his heart was . He recently had labs prior to his trip but was never called of the results including his renal function. He has not seen any insole channeler as an outpt in the past. He recently had acute CHF exacerbation and was placed on increased lasix at bid and curerently on daily 80 mg lasix with 10 mg of zaroxylyn. Denies any CP, SOA, palpitations. His valvular insufficiency has been known since his bypass in 2000 and no indication of surgery at that time. 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 PAST MEDICAL HISTORY Cardiovascular: AFIB (chronic ), CAD, CHF, HTN, Hyperlipidemia, Valve insufficiency (moderate MR and severe TR), Other (cardiomyopathy) Pulmonary: Pneumonia CENTRAL NERVOUS SYSTEM: Other (No pertinent history) GI: No pertinent hx Heme/Onc: Anemia NOS Hepatobiliary: No pertinent hx Psych: No pertinent hx Musculoskeletal: Osteoarthritis Rheumatologic: No pertinent hx Infectious disease: No pertinent hx ENT: Other (cataract) Renal/: Chronic renal insuff Endocrine: No pertinent hx Dermatology: No pertinent hx PAST SURGICAL HISTORY Past Surgical History: Pacemaker (AICD medtronic 2013), CABG (x5 2000), Hernia Repair (inguinal), Other (sinus surgery) FAMILY HISTORY Family History: Heart Disease SOCIAL HISTORY Smoke: No ALCOHOL: none Drugs: None Lives: with Family CURRENT MEDICATIONS CURRENT MEDICATIONS Current Medications Medications (Trade) Dose Ordered Sig/Roxanne Route PRN Reason Start Time Stop Time Status Last Admin Dose Admin Potassium Chloride (Klor-Con) 40 meq 1X ONCE PO 04/17/18 13:30 04/17/18 13:31 DC 04/17/18 13:48 Temazepam (Restoril) 7.5 mg PRN QHS PRN PO INSOMNIA 04/17/18 22:00 04/17/18 22:38 Carvedilol (Coreg) 25 mg BIDWMEALS PO 04/18/18 08:00 04/18/18 10:08 Potassium Chloride (Klor-Con) 40 meq 1X ONCE PO 04/18/18 09:45 04/18/18 09:46 DC 04/18/18 10:07 ALLERGIES ALLERGIES: Coded Allergies: No Known Drug Allergies (Unverified , 04/17/18) ROS Review of System 14 point ROS evaluated with pertinent positives noted per HPI PHYSICAL EXAM General: Alert, Oriented X3, Cooperative, No acute distress HEENT: Atraumatic, Mucous membr. moist/pink Lungs: Other (basilar crackles) Heart: Other (AFIB with PVCs; 4/6 systolic murmur diffused) Extremities: No cyanosis Skin: No breakdown, No significant lesion, Other (bilateral LE hyperpigmentation) Neuro: Normal speech, Sensation intact Psych/Mental Status: Mental status NL, Mood NL MUSCULOSKELETAL: Osteoarthritic changes both hands VITALS VITALS Vital Signs Date Time Temp Pulse Resp B/P (MAP) Pulse Ox O2 Delivery O2 Flow Rate FiO2 04/18/18 10:11 101 97/67 (77) 04/18/18 07:25 97.4 18 96 Nasal Cannula 2.0 97.4 LABS Lab: Laboratory Tests Test 04/17/18 12:02 04/17/18 14:00 04/17/18 17:00 04/18/18 04:00 White Blood Count 8.4 x10^3/uL (4.0-11.0) Red Blood Count 4.79 x10^6/uL (4.30-5.70) Hemoglobin 15.1 g/dL (13.0-17.5) Hematocrit 45.4 % (39.0-53.0) Mean Corpuscular Volume 95 fL (79-100) Mean Corpuscular Hemoglobin 32 pg (25-35) Mean Corpuscular Hemoglobin Concent 33 g/dL (31-37) Red Cell Distribution Width 19.2 % (11.5-14.5) Platelet Count 119 x10^3/uL (140-400) Neutrophils (%) (Auto) 72 % (31-73) Lymphocytes (%) (Auto) 12 % (24-48) Monocytes (%) (Auto) 13 % (0-9) Eosinophils (%) (Auto) 2 % (0-3) Basophils (%) (Auto) 1 % (0-3) Neutrophils # (Auto) 6.0 x10^3uL (1.8-7.7) Lymphocytes # (Auto) 1.0 x10^3/uL (1.0-4.8) Monocytes # (Auto) 1.1 x10^3/uL (0.0-1.1) Eosinophils # (Auto) 0.2 x10^3/uL (0.0-0.7) Basophils # (Auto) 0.1 x10^3/uL (0.0-0.2) Prothrombin Time 33.4 SEC (11.7-14.0) Prothromb Time International Ratio 3.4 (0.8-1.1) Activated Partial Thromboplast Time 48 SEC (24-38) Sodium Level 142 mmol/L (136-145) 142 mmol/L (136-145) Potassium Level 2.9 mmol/L (3.5-5.1) 2.9 mmol/L (3.5-5.1) Chloride Level 97 mmol/L (98-107) 97 mmol/L (98-107) Carbon Dioxide Level 34 mmol/L (21-32) 31 mmol/L (21-32) Anion Gap 11 (6-14) 14 (6-14) Blood Urea Nitrogen 81 mg/dL (8-26) 82 mg/dL (8-26) Creatinine 3.2 mg/dL (0.7-1.3) 2.9 mg/dL (0.7-1.3) Estimated GFR (Cockcroft-Gault) 19.2 21.6 BUN/Creatinine Ratio 25 (6-20) Glucose Level 108 mg/dL (70-99) 100 mg/dL (70-99) Calcium Level 9.0 mg/dL (8.5-10.1) 8.4 mg/dL (8.5-10.1) Magnesium Level 2.6 mg/dL (1.8-2.4) 2.4 mg/dL (1.8-2.4) Total Bilirubin 3.1 mg/dL (0.2-1.0) Aspartate Amino Transf (AST/SGOT) 25 U/L (15-37) Alanine Aminotransferase (ALT/SGPT) 23 U/L (16-63) Alkaline Phosphatase 118 U/L (46-116) Troponin I Quantitative 0.040 ng/mL (0.000-0.055) 0.043 ng/mL (0.000-0.055) 0.043 ng/mL (0.000-0.055) RH-Ljs-R-Type Natriuretic Peptide 3200 pg/mL (0-124) Total Protein 7.8 g/dL (6.4-8.2) Albumin 3.1 g/dL (3.4-5.0) Albumin/Globulin Ratio 0.7 (1.0-1.7) Lipase 267 U/L (73-393) Ethyl Alcohol Level < 10 mg/dL (0-10) Urine Collection Type Unknown Urine Color Yellow Urine Clarity Clear Urine pH 6.5 Urine Specific [place] 1.010 Urine Protein Negative mg/dL (NEG-TRACE) Urine Glucose (UA) Negative mg/dL (NEG) Urine Ketones (Stick) Negative mg/dL (NEG) Urine Blood Negative (NEG) Urine Nitrite Negative (NEG) Urine Bilirubin Negative (NEG) Urine Urobilinogen Dipstick 1.0 mg/dL (0.2 mg/dL) Urine Leukocyte Esterase Negative (NEG) Urine RBC Rare /HPF (0-2) Urine WBC Rare /HPF (0-4) Urine Bacteria 0 /HPF (0-FEW) Urine Hyaline Casts Few /HPF Thyroid Stimulating Hormone (TSH) 3.027 uIU/mL (0.358-3.74) ECHOCARDIOGRAM ECHOCARDIOGRAM 08/09/2017 EF35-40% ASSESSMENT/PLAN ASSESSMENT/PLAN 1. Syncope: Brief. multifactorial with likely inadequate hydration with lasix use and AFIB RVR with vasovagal component 2. Chronic AFIB: intermittent RVR 3. Acute on chronic diastolic/systolic CHF 4. MUNA on CKD: unknown baseline 5. CAD: past CABGx5, clinically stable. 6. ICM with s/p AICD: Medtronic 7. Valvular insufficiency: mod MR/mod-severe TR 8. HTN: low end BP 9. HLP 10. Polyherbal meds Recommendations 1. Check orthostasis 2. Coreg was given will DC this and start on metoprolol in lieu of low BP. 3. Presently no SOA sitting up, awaiting CXR will diurese accordingly. Consult nephrology, has not seen outpt insole channeler per him. Pt did take his own metolazone supply himself this am 4. Interrogate device and note any significant arrhythmias and AFIB burden as well as optivol. INR yesterday 3.4 Check INR and will note resumption of xarelto. DOMO OMALLEY AUDIO PRODUCTION ENGINEER Apr 18, 2018 11:58
[2018-04-18] MEDS: METOPROLOL TART IMMED RELEASE 25 MG TABLET. PO SCH ×2 (12:00→20:23)
--- NOTE | 2018-04-18 12:20 | PDOC ---
PROGRESS NOTES Chief Complaint Chief Complaint Syncope and collapse Acute renal failure Hypokalemia H/o CAD H/o CHF Chronic hypoxic respiratory failure History of Present Illness History of Present Illness Pt seen and examined. Pt sitting on the side of the bed. Pt was pleasant and talkative. 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 Vitals Vitals Vital Signs Date Time Temp Pulse Resp B/P (MAP) Pulse Ox O2 Delivery O2 Flow Rate FiO2 04/18/18 11:24 97.4 94 18 108/76 (87) 100 2.0 97.4 04/18/18 08:10 Room Air Physical Exam General: Alert, Oriented X3, Cooperative, No acute distress Heart: Other (AFIB with PVCs; 4/6 systolic murmur diffused) Abdomen: Soft, No tenderness Extremities: No clubbing, No cyanosis Skin: No breakdown, No significant lesion, Other (bilateral LE hyperpigmentation) Labs LABS Laboratory Tests Test 04/17/18 14:00 04/17/18 17:00 04/18/18 04:00 04/18/18 10:35 Urine Collection Type Unknown Urine Color Yellow Urine Clarity Clear Urine pH 6.5 Urine Specific [place] 1.010 Urine Protein Negative mg/dL (NEG-TRACE) Urine Glucose (UA) Negative mg/dL (NEG) Urine Ketones (Stick) Negative mg/dL (NEG) Urine Blood Negative (NEG) Urine Nitrite Negative (NEG) Urine Bilirubin Negative (NEG) Urine Urobilinogen Dipstick 1.0 mg/dL (0.2 mg/dL) Urine Leukocyte Esterase Negative (NEG) Urine RBC Rare /HPF (0-2) Urine WBC Rare /HPF (0-4) Urine Bacteria 0 /HPF (0-FEW) Urine Hyaline Casts Few /HPF Troponin I Quantitative 0.043 ng/mL (0.000-0.055) 0.043 ng/mL (0.000-0.055) Sodium Level 142 mmol/L (136-145) Potassium Level 2.9 mmol/L (3.5-5.1) Chloride Level 97 mmol/L (98-107) Carbon Dioxide Level 31 mmol/L (21-32) Anion Gap 14 (6-14) Blood Urea Nitrogen 82 mg/dL (8-26) Creatinine 2.9 mg/dL (0.7-1.3) Estimated GFR (Cockcroft-Gault) 21.6 Glucose Level 100 mg/dL (70-99) Calcium Level 8.4 mg/dL (8.5-10.1) Magnesium Level 2.4 mg/dL (1.8-2.4) Thyroid Stimulating Hormone (TSH) 3.027 uIU/mL (0.358-3.74) Prothrombin Time 35.5 SEC (11.7-14.0) Prothromb Time International Ratio 3.7 (0.8-1.1) Review of Systems Review of Systems Pt denies lightheadedness and dizziness. Assessment and Plan Assessmemt and Plan Problems Medical Problems: (1) Hypokalemia Status: Acute Assessment: Syncope and collapse Acute renal failure Hypokalemia H/o CAD H/o CHF Chronic hypoxic respiratory failure Plan: Cardiac monitoring Appreciate cardio Consult nephrology Monitor labs Replace K+ PT/OT DVT ppx Comment Review of Relevant I have reviewed the following items raj (where applicable) has been applied. Labs Laboratory Tests Test 04/17/18 12:02 04/17/18 14:00 04/17/18 17:00 04/18/18 04:00 White Blood Count 8.4 x10^3/uL (4.0-11.0) Red Blood Count 4.79 x10^6/uL (4.30-5.70) Hemoglobin 15.1 g/dL (13.0-17.5) Hematocrit 45.4 % (39.0-53.0) Mean Corpuscular Volume 95 fL (79-100) Mean Corpuscular Hemoglobin 32 pg (25-35) Mean Corpuscular Hemoglobin Concent 33 g/dL (31-37) Red Cell Distribution Width 19.2 % (11.5-14.5) Platelet Count 119 x10^3/uL (140-400) Neutrophils (%) (Auto) 72 % (31-73) Lymphocytes (%) (Auto) 12 % (24-48) Monocytes (%) (Auto) 13 % (0-9) Eosinophils (%) (Auto) 2 % (0-3) Basophils (%) (Auto) 1 % (0-3) Neutrophils # (Auto) 6.0 x10^3uL (1.8-7.7) Lymphocytes # (Auto) 1.0 x10^3/uL (1.0-4.8) Monocytes # (Auto) 1.1 x10^3/uL (0.0-1.1) Eosinophils # (Auto) 0.2 x10^3/uL (0.0-0.7) Basophils # (Auto) 0.1 x10^3/uL (0.0-0.2) Prothrombin Time 33.4 SEC (11.7-14.0) Prothromb Time International Ratio 3.4 (0.8-1.1) Activated Partial Thromboplast Time 48 SEC (24-38) Sodium Level 142 mmol/L (136-145) 142 mmol/L (136-145) Potassium Level 2.9 mmol/L (3.5-5.1) 2.9 mmol/L (3.5-5.1) Chloride Level 97 mmol/L (98-107) 97 mmol/L (98-107) Carbon Dioxide Level 34 mmol/L (21-32) 31 mmol/L (21-32) Anion Gap 11 (6-14) 14 (6-14) Blood Urea Nitrogen 81 mg/dL (8-26) 82 mg/dL (8-26) Creatinine 3.2 mg/dL (0.7-1.3) 2.9 mg/dL (0.7-1.3) Estimated GFR (Cockcroft-Gault) 19.2 21.6 BUN/Creatinine Ratio 25 (6-20) Glucose Level 108 mg/dL (70-99) 100 mg/dL (70-99) Calcium Level 9.0 mg/dL (8.5-10.1) 8.4 mg/dL (8.5-10.1) Magnesium Level 2.6 mg/dL (1.8-2.4) 2.4 mg/dL (1.8-2.4) Total Bilirubin 3.1 mg/dL (0.2-1.0) Aspartate Amino Transf (AST/SGOT) 25 U/L (15-37) Alanine Aminotransferase (ALT/SGPT) 23 U/L (16-63) Alkaline Phosphatase 118 U/L (46-116) Troponin I Quantitative 0.040 ng/mL (0.000-0.055) 0.043 ng/mL (0.000-0.055) 0.043 ng/mL (0.000-0.055) NA-Qhv-C-Type Natriuretic Peptide 3200 pg/mL (0-124) Total Protein 7.8 g/dL (6.4-8.2) Albumin 3.1 g/dL (3.4-5.0) Albumin/Globulin Ratio 0.7 (1.0-1.7) Lipase 267 U/L (73-393) Ethyl Alcohol Level < 10 mg/dL (0-10) Urine Collection Type Unknown Urine Color Yellow Urine Clarity Clear Urine pH 6.5 Urine Specific [place] 1.010 Urine Protein Negative mg/dL (NEG-TRACE) Urine Glucose (UA) Negative mg/dL (NEG) Urine Ketones (Stick) Negative mg/dL (NEG) Urine Blood Negative (NEG) Urine Nitrite Negative (NEG) Urine Bilirubin Negative (NEG) Urine Urobilinogen Dipstick 1.0 mg/dL (0.2 mg/dL) Urine Leukocyte Esterase Negative (NEG) Urine RBC Rare /HPF (0-2) Urine WBC Rare /HPF (0-4) Urine Bacteria 0 /HPF (0-FEW) Urine Hyaline Casts Few /HPF Thyroid Stimulating Hormone (TSH) 3.027 uIU/mL (0.358-3.74) Test 04/18/18 10:35 Prothrombin Time 35.5 SEC (11.7-14.0) Prothromb Time International Ratio 3.7 (0.8-1.1) Laboratory Tests Test 04/17/18 14:00 04/17/18 17:00 04/18/18 04:00 04/18/18 10:35 Urine Collection Type Unknown Urine Color Yellow Urine Clarity Clear Urine pH 6.5 Urine Specific [place] 1.010 Urine Protein Negative mg/dL (NEG-TRACE) Urine Glucose (UA) Negative mg/dL (NEG) Urine Ketones (Stick) Negative mg/dL (NEG) Urine Blood Negative (NEG) Urine Nitrite Negative (NEG) Urine Bilirubin Negative (NEG) Urine Urobilinogen Dipstick 1.0 mg/dL (0.2 mg/dL) Urine Leukocyte Esterase Negative (NEG) Urine RBC Rare /HPF (0-2) Urine WBC Rare /HPF (0-4) Urine Bacteria 0 /HPF (0-FEW) Urine Hyaline Casts Few /HPF Troponin I Quantitative 0.043 ng/mL (0.000-0.055) 0.043 ng/mL (0.000-0.055) Sodium Level 142 mmol/L (136-145) Potassium Level 2.9 mmol/L (3.5-5.1) Chloride Level 97 mmol/L (98-107) Carbon Dioxide Level 31 mmol/L (21-32) Anion Gap 14 (6-14) Blood Urea Nitrogen 82 mg/dL (8-26) Creatinine 2.9 mg/dL (0.7-1.3) Estimated GFR (Cockcroft-Gault) 21.6 Glucose Level 100 mg/dL (70-99) Calcium Level 8.4 mg/dL (8.5-10.1) Magnesium Level 2.4 mg/dL (1.8-2.4) Thyroid Stimulating Hormone (TSH) 3.027 uIU/mL (0.358-3.74) Prothrombin Time 35.5 SEC (11.7-14.0) Prothromb Time International Ratio 3.7 (0.8-1.1) Medications Current Medications Potassium Chloride (Klor-Con) 40 meq 1X ONCE PO Last administered on at 13:48; Start 04/17/18 at 13:30; Stop 04/17/18 at 13:31; Status DC Sodium Chloride (Normal Saline Flush) 3 ml PRN DAILY PRN IV AFTER MEDS AND BLOOD DRAWS; Start 04/17/18 at 21:45 Ondansetron HCl (Zofran) 4 mg PRN Q6HRS PRN IV NAUSEA/VOMITING; Start 04/17/18 at 21:45 Morphine Sulfate (Morphine Sulfate) 2 mg PRN Q1HR PRN IV PAIN; Start 04/17/18 at 21:45 Acetaminophen (Tylenol) 650 mg PRN Q6HRS PRN PO Headaches, Temp > 101.5F; Start 04/17/18 at 21:45 Senna/Docusate Sodium (Senna Plus) 1 tab BID PO ; Start 04/18/18 at 09:00 Heparin Sodium (Porcine) (Heparin Sodium) 5,000 unit Q12HR SQ ; Start 04/18/18 at 09:00; Stop 04/18/18 at 09:09; Status DC Temazepam (Restoril) 7.5 mg PRN QHS PRN PO INSOMNIA Last administered on at 22:38; Start 04/17/18 at 22:00 Rivaroxaban (Xarelto) 10 mg DAILY PO ; Start 04/18/18 at 09:00; Stop 04/18/18 at 10:44; Status DC Simvastatin (Zocor) 5 mg HS PO ; Start 04/18/18 at 21:00 Carvedilol (Coreg) 25 mg BIDWMEALS PO Last administered on 04/18/18at 10:08; Start 04/18/18 at 08:00; Stop 04/18/18 at 11:50; Status DC Non-Formulary Medication (Potassium Gluconate ) 99 mg DAILY PO ; Start 04/18/18 at 09:00; Status UNV Potassium Chloride (Klor-Con) 40 meq 1X ONCE PO Last administered on at 10:07; Start 04/18/18 at 09:45; Stop 04/18/18 at 09:46; Status DC Potassium Chloride (Klor-Con) 40 meq 1X ONCE PO ; Start 04/18/18 at 14:00; Stop 04/18/18 at 14:01 Potassium Chloride (Klor-Con) 40 meq 1X ONCE PO ; Start 04/18/18 at 14:00; Stop 04/18/18 at 14:01; Status Cancel Rivaroxaban (Xarelto) 10 mg HS PO ; Start 04/18/18 at 21:00; Stop 04/18/18 at 21 :00; Status DC Rivaroxaban (Xarelto) 15 mg QHS PO ; Start 04/18/18 at 21:00; Stop 04/18/18 at 21:00; Status DC Metoprolol Tartrate (Lopressor) 25 mg BID PO ; Start 04/18/18 at 12:00 Active Scripts Active Reported Xarelto (Rivaroxaban) 15 Mg Tablet 15 Mg PO DAILYWSUP Fluticasone Propionate Nasal [place] (Fluticasone Propionate) 16 Gm [place].susp 2 [place] NS DAILY Potassium Gluconate 99 Mg Tablet 99 Mg PO DAILY Biotin 2,500 Mcg Capsule 5,000 Mcg PO DAILY Cinnamon (Cinnamon Bark) 500 Mg Capsule 1,000 Mg PO DAILY Apple Cider Vinegar (Cider Vinegar) 600 Mg Capsule 600 Mg PO BID Turmeric Complex 500 mg Cap (Turmeric/Turmeric Ext/Pepr Ext) 1 Each Capsule 1 Each PO DAILY L-Arginine (Arginine Hcl) 1,000 Mg Tablet 1,000 Mg PO DAILY Acidophilus Lactobacillus (Lactobacillus Acidophilus) 1 Each Capsule 1 Each PO DAILY Garlic 1,000 Mg Capsule 1,000 Mg PO DAILYWBKFT Furosemide 80 Mg Tablet 1 Tab PO DAILY Coconut Oil 1,000 Mg Capsule 1,000 Mg PO BID Centrum Silver Men Tablet (Multivit-Min/FA/Lycopen/Lutein) 1 Each Tablet 1 Each PO DAILY Coq-10 (Ubidecarenone) 100 Mg Capsule 100 Mg PO DAILY Flax Oil (Flaxseed Oil) 1,000 Mg Capsule 1,000 Mg PO TIDBFRMEAL Fish Oil 1,000 mg Softgel ([place]-3S/Dha/Epa/Fish Oil) 1 Each Capsule 1 Each PO TIDBFRMEAL Azelastine Hcl 137 Mcg/0.137 Ml [place].pump 2 [place] NS BID Carvedilol 25 Mg Tablet 1 Tab PO BID Simvastatin 10 Mg Tablet 5 Mg PO HS Metolazone 10 Mg Tablet 10 Mg PO DAILY Milk Thistle 175 Mg Tablet 175 Mg PO DAILY Vitals/I & O Vital Sign - Last 24 Hours 04/17/18 04/17/18 04/17/18 04/17/18 12:30 13:00 13:30 14:00 Pulse 92 90 92 90 Resp 20 18 18 B/P (MAP) 104/76 (85) 111/55 (73) Pulse Ox 97 97 96 96 O2 Delivery Nasal Cannula Nasal Cannula Nasal Cannula Nasal Cannula O2 Flow Rate 2.0 2.0 2.0 2.0 04/17/18 04/17/18 04/17/18 04/17/18 15:00 16:00 17:00 18:00 Pulse 96 96 94 94 Resp 18 17 17 17 B/P (MAP) 96/64 (75) 89/67 (74) 93/68 (76) Pulse Ox 96 94 96 O2 Delivery Nasal Cannula Nasal Cannula Nasal Cannula Nasal Cannula O2 Flow Rate 2.0 2.0 2.0 04/17/18 04/17/18 04/17/18 04/17/18 20:00 23:41 23:42 23:43 Temp 97.4 97.7 97.4 97.7 Pulse 96 90 Resp 18 18 B/P (MAP) 103/76 (85) 91/64 (73) 88/52 (64) 92/60 (71) Pulse Ox 95 97 O2 Delivery Nasal Cannula Nasal Cannula O2 Flow Rate 2.0 2.0 04/18/18 04/18/18 04/18/18 04/18/18 03:40 07:25 08:10 10:08 Temp 97.7 97.4 97.7 97.4 Pulse 93 91 101 Resp 18 18 B/P (MAP) 85/54 (64) 93/65 (74) Pulse Ox 95 96 O2 Delivery Nasal Cannula Nasal Cannula Room Air O2 Flow Rate 2.0 2.0 04/18/18 04/18/18 10:11 11:24 Temp 97.4 97.4 Pulse 101 94 Resp 18 B/P (MAP) 97/67 (77) 108/76 (87) Pulse Ox 100 O2 Flow Rate 2.0 Intake and Output 04/17/18 04/17/18 04/18/18 15:00 23:00 07:00 Intake Total 100 ml 1000 ml Output Total 500 ml Balance 100 ml 500 ml JIAN VENCES III DO Apr 18, 2018 12:20
--- NOTE | 2018-04-18 12:47 | RAD ---
Portable chest, 04/18/2018: HISTORY: Congestive heart failure Comparison is made yesterday study. A right-sided transvenous pacing device remains in place. The heart is enlarged. The pulmonary vascularity is congested with loss of vascular margination. There are mixed interstitial and acinar opacities in the lungs compatible with pulmonary edema with ongoing pleural effusions, right greater than left. The right basilar findings have worsened slightly. IMPRESSION: Ongoing congestive heart failure with pulmonary edema and pleural effusions, with slight worsening since yesterday's study. Electronically signed by: Ham Farmer MD (04/18/2018 12:44 PM) [facility]
--- NOTE | 2018-04-18 12:51 | PDOC2 ---
CONSULT Date of Consult Date of Consult DATE: 04/18/18 TIME: 12:45 Reason for Consult Reason for Consult: MUNA Referring Physician Referring Physician: YINKA Identification/Chief Complaint Chief Complaint PASSING OUT Source Source: Chart review, Patient History of Present Illness Reason for Visit: THIS IS A 72 YR OLD WHO PASSED OUT. SYNCOPAL EPISODE WITH HYPOTENSION. HX NOTABLE FOR CM WITH EF OF 20%. HX NOTABLE FOR SEVERE EDEMA. HE HAS BEEN ON LASIX AND THIS WAS INCREASED COUPLE WEEKS AGO AND HE WAS AT THAT STARTED ON METOLAZONE 10MG A DAY WELL. HE HAS HAD SIGNIFICANT IMPROVEMENT IN HIS EDEMA. NO SOB. NO CKD HX. NO HX OF ANY OTHER PROBLEMS. CARDIOLOGY EVAL ONGOING Past Medical History Cardiovascular: AFIB (chronic ), CAD, CHF, HTN, Hyperlipidemia, Valve insufficiency (moderate MR and severe TR), Other (cardiomyopathy) Pulmonary: Pneumonia CENTRAL NERVOUS SYSTEM: Other (No pertinent history) GI: No pertinent hx Heme/Onc: Anemia NOS Hepatobiliary: No pertinent hx Psych: No pertinent hx Musculoskeletal: Osteoarthritis Rheumatologic: No pertinent hx Infectious disease: No pertinent hx ENT: Other (cataract) Renal/: Chronic renal insuff Endocrine: No pertinent hx Dermatology: No pertinent hx Past Surgical History Past Surgical History: Pacemaker (AICD medtronic 2013), CABG (x5 2000), Hernia Repair (inguinal), Other (sinus surgery) Family History Family History: Heart Disease Social History No ALCOHOL: none Drugs: None Lives: with Family Current Problem List Problem List Problems Medical Problems: (1) Hypokalemia Status: Acute Current Medications Current Medications Current Medications Potassium Chloride (Klor-Con) 40 meq 1X ONCE PO Last administered on at 13:48; Start 04/17/18 at 13:30; Stop 04/17/18 at 13:31; Status DC Sodium Chloride (Normal Saline Flush) 3 ml PRN DAILY PRN IV AFTER MEDS AND BLOOD DRAWS; Start 04/17/18 at 21:45 Ondansetron HCl (Zofran) 4 mg PRN Q6HRS PRN IV NAUSEA/VOMITING; Start 04/17/18 at 21:45 Morphine Sulfate (Morphine Sulfate) 2 mg PRN Q1HR PRN IV PAIN; Start 04/17/18 at 21:45 Acetaminophen (Tylenol) 650 mg PRN Q6HRS PRN PO Headaches, Temp > 101.5F; Start 04/17/18 at 21:45 Senna/Docusate Sodium (Senna Plus) 1 tab BID PO ; Start 04/18/18 at 09:00 Heparin Sodium (Porcine) (Heparin Sodium) 5,000 unit Q12HR SQ ; Start 04/18/18 at 09:00; Stop 04/18/18 at 09:09; Status DC Temazepam (Restoril) 7.5 mg PRN QHS PRN PO INSOMNIA Last administered on at 22:38; Start 04/17/18 at 22:00 Rivaroxaban (Xarelto) 10 mg DAILY PO ; Start 04/18/18 at 09:00; Stop 04/18/18 at 10:44; Status DC Simvastatin (Zocor) 5 mg HS PO ; Start 04/18/18 at 21:00 Carvedilol (Coreg) 25 mg BIDWMEALS PO Last administered on 04/18/18at 10:08; Start 04/18/18 at 08:00; Stop 04/18/18 at 11:50; Status DC Non-Formulary Medication (Potassium Gluconate ) 99 mg DAILY PO ; Start 04/18/18 at 09:00; Status UNV Potassium Chloride (Klor-Con) 40 meq 1X ONCE PO Last administered on at 10:07; Start 04/18/18 at 09:45; Stop 04/18/18 at 09:46; Status DC Potassium Chloride (Klor-Con) 40 meq 1X ONCE PO ; Start 04/18/18 at 14:00; Stop 04/18/18 at 14:01 Potassium Chloride (Klor-Con) 40 meq 1X ONCE PO ; Start 04/18/18 at 14:00; Stop 04/18/18 at 14:01; Status Cancel Rivaroxaban (Xarelto) 10 mg HS PO ; Start 04/18/18 at 21:00; Stop 04/18/18 at 21 :00; Status DC Rivaroxaban (Xarelto) 15 mg QHS PO ; Start 04/18/18 at 21:00; Stop 04/18/18 at 21:00; Status DC Metoprolol Tartrate (Lopressor) 25 mg BID PO ; Start 04/18/18 at 12:00 Active Scripts Active Reported Xarelto (Rivaroxaban) 15 Mg Tablet 15 Mg PO DAILYWSUP Fluticasone Propionate Nasal [place] (Fluticasone Propionate) 16 Gm [place].susp 2 [place] NS DAILY Potassium Gluconate 99 Mg Tablet 99 Mg PO DAILY Biotin 2,500 Mcg Capsule 5,000 Mcg PO DAILY Cinnamon (Cinnamon Bark) 500 Mg Capsule 1,000 Mg PO DAILY Apple Cider Vinegar (Cider Vinegar) 600 Mg Capsule 600 Mg PO BID Turmeric Complex 500 mg Cap (Turmeric/Turmeric Ext/Pepr Ext) 1 Each Capsule 1 Each PO DAILY L-Arginine (Arginine Hcl) 1,000 Mg Tablet 1,000 Mg PO DAILY Acidophilus Lactobacillus (Lactobacillus Acidophilus) 1 Each Capsule 1 Each PO DAILY Garlic 1,000 Mg Capsule 1,000 Mg PO DAILYWBKFT Furosemide 80 Mg Tablet 1 Tab PO DAILY Coconut Oil 1,000 Mg Capsule 1,000 Mg PO BID Centrum Silver Men Tablet (Multivit-Min/FA/Lycopen/Lutein) 1 Each Tablet 1 Each PO DAILY Coq-10 (Ubidecarenone) 100 Mg Capsule 100 Mg PO DAILY Flax Oil (Flaxseed Oil) 1,000 Mg Capsule 1,000 Mg PO TIDBFRMEAL Fish Oil 1,000 mg Softgel ([place]-3S/Dha/Epa/Fish Oil) 1 Each Capsule 1 Each PO TIDBFRMEAL Azelastine Hcl 137 Mcg/0.137 Ml [place].pump 2 [place] NS BID Carvedilol 25 Mg Tablet 1 Tab PO BID Simvastatin 10 Mg Tablet 5 Mg PO HS Metolazone 10 Mg Tablet 10 Mg PO DAILY Milk Thistle 175 Mg Tablet 175 Mg PO DAILY Allergies Allergies: Coded Allergies: No Known Drug Allergies (Unverified , 04/17/18) ROS General: YES: Fatigue, Malaise PSYCHOLOGICAL ROS: YES: Anxiety Eyes: Yes Decreased vision HEENT: YES: Heacaches Respiratory: YES: Cough, Shortness of breath Cardiovascular: yes Edema, yes Lt [place] Gastrointestinal: Yes Constipation Genitourinary: YES Other (HAD INCREASED UO AND NOW NL) Musculoskeletal: Yes Muscular Weakness Neurological: Yes Weakness Skin: Yes Dry Skin Physical Exam General: Alert, Oriented X3, Cooperative, No acute distress HEENT: Atraumatic, PERRLA Lungs: Clear to auscultation, Normal air movement Heart: Regular rate, Normal S1, Normal S2 Abdomen: Soft Extremities: No clubbing Neuro: Normal speech, Cranial nerves 3-12 NL Psych/Mental Status: Mental status NL, Mood NL MUSCULOSKELETAL: No deformity, No swelling Vitals VITALS Vital Signs Date Time Temp Pulse Resp B/P (MAP) Pulse Ox O2 Delivery O2 Flow Rate FiO2 04/18/18 11:24 97.4 94 18 108/76 (87) 100 2.0 97.4 04/18/18 08:10 Room Air Labs Labs Laboratory Tests Test 04/17/18 12:02 04/17/18 14:00 04/17/18 17:00 04/18/18 04:00 White Blood Count 8.4 x10^3/uL (4.0-11.0) Red Blood Count 4.79 x10^6/uL (4.30-5.70) Hemoglobin 15.1 g/dL (13.0-17.5) Hematocrit 45.4 % (39.0-53.0) Mean Corpuscular Volume 95 fL (79-100) Mean Corpuscular Hemoglobin 32 pg (25-35) Mean Corpuscular Hemoglobin Concent 33 g/dL (31-37) Red Cell Distribution Width 19.2 % (11.5-14.5) Platelet Count 119 x10^3/uL (140-400) Neutrophils (%) (Auto) 72 % (31-73) Lymphocytes (%) (Auto) 12 % (24-48) Monocytes (%) (Auto) 13 % (0-9) Eosinophils (%) (Auto) 2 % (0-3) Basophils (%) (Auto) 1 % (0-3) Neutrophils # (Auto) 6.0 x10^3uL (1.8-7.7) Lymphocytes # (Auto) 1.0 x10^3/uL (1.0-4.8) Monocytes # (Auto) 1.1 x10^3/uL (0.0-1.1) Eosinophils # (Auto) 0.2 x10^3/uL (0.0-0.7) Basophils # (Auto) 0.1 x10^3/uL (0.0-0.2) Prothrombin Time 33.4 SEC (11.7-14.0) Prothromb Time International Ratio 3.4 (0.8-1.1) Activated Partial Thromboplast Time 48 SEC (24-38) Sodium Level 142 mmol/L (136-145) 142 mmol/L (136-145) Potassium Level 2.9 mmol/L (3.5-5.1) 2.9 mmol/L (3.5-5.1) Chloride Level 97 mmol/L (98-107) 97 mmol/L (98-107) Carbon Dioxide Level 34 mmol/L (21-32) 31 mmol/L (21-32) Anion Gap 11 (6-14) 14 (6-14) Blood Urea Nitrogen 81 mg/dL (8-26) 82 mg/dL (8-26) Creatinine 3.2 mg/dL (0.7-1.3) 2.9 mg/dL (0.7-1.3) Estimated GFR (Cockcroft-Gault) 19.2 21.6 BUN/Creatinine Ratio 25 (6-20) Glucose Level 108 mg/dL (70-99) 100 mg/dL (70-99) Calcium Level 9.0 mg/dL (8.5-10.1) 8.4 mg/dL (8.5-10.1) Magnesium Level 2.6 mg/dL (1.8-2.4) 2.4 mg/dL (1.8-2.4) Total Bilirubin 3.1 mg/dL (0.2-1.0) Aspartate Amino Transf (AST/SGOT) 25 U/L (15-37) Alanine Aminotransferase (ALT/SGPT) 23 U/L (16-63) Alkaline Phosphatase 118 U/L (46-116) Troponin I Quantitative 0.040 ng/mL (0.000-0.055) 0.043 ng/mL (0.000-0.055) 0.043 ng/mL (0.000-0.055) ZO-Aek-W-Type Natriuretic Peptide 3200 pg/mL (0-124) Total Protein 7.8 g/dL (6.4-8.2) Albumin 3.1 g/dL (3.4-5.0) Albumin/Globulin Ratio 0.7 (1.0-1.7) Lipase 267 U/L (73-393) Ethyl Alcohol Level < 10 mg/dL (0-10) Urine Collection Type Unknown Urine Color Yellow Urine Clarity Clear Urine pH 6.5 Urine Specific [place] 1.010 Urine Protein Negative mg/dL (NEG-TRACE) Urine Glucose (UA) Negative mg/dL (NEG) Urine Ketones (Stick) Negative mg/dL (NEG) Urine Blood Negative (NEG) Urine Nitrite Negative (NEG) Urine Bilirubin Negative (NEG) Urine Urobilinogen Dipstick 1.0 mg/dL (0.2 mg/dL) Urine Leukocyte Esterase Negative (NEG) Urine RBC Rare /HPF (0-2) Urine WBC Rare /HPF (0-4) Urine Bacteria 0 /HPF (0-FEW) Urine Hyaline Casts Few /HPF Thyroid Stimulating Hormone (TSH) 3.027 uIU/mL (0.358-3.74) Test 04/18/18 10:35 Prothrombin Time 35.5 SEC (11.7-14.0) Prothromb Time International Ratio 3.7 (0.8-1.1) Laboratory Tests Test 04/17/18 14:00 04/17/18 17:00 04/18/18 04:00 04/18/18 10:35 Urine Collection Type Unknown Urine Color Yellow Urine Clarity Clear Urine pH 6.5 Urine Specific [place] 1.010 Urine Protein Negative mg/dL (NEG-TRACE) Urine Glucose (UA) Negative mg/dL (NEG) Urine Ketones (Stick) Negative mg/dL (NEG) Urine Blood Negative (NEG) Urine Nitrite Negative (NEG) Urine Bilirubin Negative (NEG) Urine Urobilinogen Dipstick 1.0 mg/dL (0.2 mg/dL) Urine Leukocyte Esterase Negative (NEG) Urine RBC Rare /HPF (0-2) Urine WBC Rare /HPF (0-4) Urine Bacteria 0 /HPF (0-FEW) Urine Hyaline Casts Few /HPF Troponin I Quantitative 0.043 ng/mL (0.000-0.055) 0.043 ng/mL (0.000-0.055) Sodium Level 142 mmol/L (136-145) Potassium Level 2.9 mmol/L (3.5-5.1) Chloride Level 97 mmol/L (98-107) Carbon Dioxide Level 31 mmol/L (21-32) Anion Gap 14 (6-14) Blood Urea Nitrogen 82 mg/dL (8-26) Creatinine 2.9 mg/dL (0.7-1.3) Estimated GFR (Cockcroft-Gault) 21.6 Glucose Level 100 mg/dL (70-99) Calcium Level 8.4 mg/dL (8.5-10.1) Magnesium Level 2.4 mg/dL (1.8-2.4) Thyroid Stimulating Hormone (TSH) 3.027 uIU/mL (0.358-3.74) Prothrombin Time 35.5 SEC (11.7-14.0) Prothromb Time International Ratio 3.7 (0.8-1.1) Assessment/Plan Assessment/Plan IMP MUNA-PRERENAL HYPOTENSION DEHYDRATION MET ALKALOSIS HYPOKALEMIA SYNCOPE CM WITH EF OF 20% PLAN ALL ABOVE DUE TO OVERDIURESIS HEMODYNAMICALLY STABLE NOW SO WILL ENCOURAGE LIBERAL FLUID INTAKE AT THIS TIME NO NEED FOR IVF'S REPLACE K CHECK MAG RESUME LASIX AND THIAZIDE AT LOWER DOSES SOON GEOFF VO MD Apr 18, 2018 12:51
[2018-04-18] MEDS ORDERED: FUROSEMIDE 40 MG/4 ML VIAL. IVP ONE (13:30)
--- NOTE | 2018-04-18 15:57 | CARD ---
MR#: [id number] Date of Study: 04/18/2018 Ordering Physician: MACK HONEYCUTT, Referring Physician: MACK HONEYCUTT, Tech: [facility] APPROVED REPORT EXAM: Two-dimensional and M-mode echocardiogram with Doppler and color Doppler. Other Information Quality : GoodHR: 94bpm Rhythm : NSR INDICATION Syncope 2D DIMENSIONS Left Atrium(2D)4.6 (1.6-4.0cm)IVSd1.2 (0.7-1.1cm) Aortic Root(2D)3.2 (2.0-3.7cm)LVDd5.6 (3.9-5.9cm) LVOT Diameter1.9 (1.8-2.4cm)PWd1.1 (0.7-1.1cm) LVDs5.0 (2.5-4.0cm)FS (%) 9.8 % SV32.1 mlLVEF(%)21.2 (>50%) M-Mode DIMENSIONS Left Atrium(MM)4.58 (2.5-4.0cm)Aortic Root3.37 (2.2-3.7cm) Aortic Valve AoV Peak Cesar.131.6cm/sAoV VTI20.7cm AO Peak GR.6.9mmHgLVOT Peak Cesar.78.9cm/s AO Mean GR.4mmHgAVA (VMAX)1.75cm2 NOY (VTI)1.80cm2 Mitral Valve MV E Cyujsyeh018.9cm/sMV E Peak Gr.52mmHg MV DECEL [id number] A Tbnpqbqf25.5cm/s MV E Mean Gr.2mmHgE/A Ratio3.3 Pulmonary Valve PV Peak Sumgdlgi12.5cm/s Tricuspid Valve TR P. Zvinjomp846ce/sRAP [id number] TR Peak Gr.09nfJsHKUI91hpOh LEFT VENTRICLE The left ventricle is normal size. There is borderline concentric left ventricular hypertrophy. The l eft ventricular systolic function is severely impaired. The Ejection Fraction is estimated at 20%. Th ere is global hypokinesis of the left ventricle. Transmitral Doppler flow pattern is Grade IV-fixed r estrictive diastolic dysfunction. RIGHT VENTRICLE The right ventricle is normal size. There is normal right ventricular wall thickness. Systolic functi on is moderately reduced. ATRIA The left atrium is moderately dilated. The right atrium size is normal. The interatrial septum is int act with no evidence for an atrial septal defect or patent foramen ovale as noted on 2-D or Doppler i maging. AORTIC VALVE The aortic valve is calcified but opens well. The aortic valve is trileaflet. Doppler and Color Flow revealed no significant aortic regurgitation. There is no significant aortic valvular stenosis. MITRAL VALVE The mitral valve is normal in structure and function. There is no evidence of mitral valve prolapse. There is no mitral valve stenosis. Doppler and Color-flow revealed moderate mitral regurgitation. TRICUSPID VALVE The tricuspid valve is normal in structure and function. Doppler and Color Flow revealed mild tricusp id regurgitation. There is moderate-severe pulmonary hypertension. The PA pressure was estimated at 5 7 mmHg. There is no tricuspid valve prolapse or vegetation. There is no tricuspid valve stenosis. PULMONIC VALVE The pulmonary valve is normal in structure and function. Doppler and Color Flow revealed mild pulmoni c valvular regurgitation. There is no pulmonic valvular stenosis. GREAT VESSELS The aortic root is normal in size. The ascending aorta is normal in size. PERICARDIAL EFFUSION Pleural effusion noted. There is no evidence of significant pericardial effusion. Critical Notification Critical Value: No <Conclusion> The left ventricular systolic function is severely impaired. The Ejection Fraction is estimated at 20%. Transmitral Doppler flow pattern is Grade IV-fixed restrictive diastolic dysfunction. The left atrium is moderately dilated. Pacer wire noted in right atrium and right ventricle. Moderate mitral regurgitation. Mild tricuspid regurgitation. The PA pressure was estimated at 57 mmHg. There is no evidence of significant pericardial effusion. Signed by : Rafael Amezquita, Electronically Approved : 04/18/2018 15:56:44
[2018-04-18] MEDS: MILRINONE 20MG/100ML PREMIX 100 ML IV PRN (18:27)
[2018-04-18] MEDS: TEMAZEPAM 7.5 MG CAPSULE PO PRN (20:22)
[2018-04-18] MEDS: SIMVASTATIN 10 MG TABLET PO SCH (20:23)
[2018-04-18] MEDS ORDERED: RIVAROXABAN 15 MG TABLET. PO SCH (21:00)
[2018-04-19 03:55] VITALS: BP 85/61
[2018-04-19 05:30] LABS: BASO # 0.1 x10^3/uL (0.0-0.2); BASO % 1 % (0-3); EOS # 0.3 x10^3/uL (0.0-0.7); EOS % 3 % (0-3); HEMOGLOBIN 12.3 g/dL (13.0-17.5); LYMPH % 12 % (24-48); MEAN CORPUSCULAR HEMOGLOBIN 31 pg (25-35); MEAN CORPUSCULAR HGB CONC 33 g/dL (31-37); MEAN CORPUSCULAR VOLUME 94 fL (79-100); MONO # 1.2 x10^3/uL (0.0-1.1); MONO % 14 % (0-9); NEUT # 6.1 x10^3uL (1.8-7.7); NEUT % 70 % (31-73); PLATELET COUNT 121 x10^3/uL (140-400); RED BLOOD COUNT 3.93 x10^6/uL (4.30-5.70); RED CELL DISTRIBUTION WIDTH 19.1 % (11.5-14.5); WHITE BLOOD COUNT 8.6 x10^3/uL (4.0-11.0)
[2018-04-19 05:40] LABS: CALCIUM 8.4 mg/dL (8.5-10.1); CREATININE 2.6 mg/dL (0.7-1.3); GFR 24.5; POTASSIUM 3.3 mmol/L (3.5-5.1)
[2018-04-19 07:20] VITALS: BP 99/62
--- NOTE | 2018-04-19 08:29 | PDOC ---
PROGRESS NOTES Chief Complaint Chief Complaint Syncope and collapse Acute renal failure Hypokalemia H/o CAD H/o CHF Chronic hypoxic respiratory failure Chronic reduced ejection fraction CHF with AICD (20% EF) History of Present Illness History of Present Illness Pt seen and examined. Feels more short of breath today, fatigued and swollen in his feet. Renal function improved today DW RN. A/P: Syncope and collapse - AICD interrogated with no discharges. Likely vagal vs hypotension with prerenal azotemia Acute renal failure - likely vasomotor from overdiuresis Hypokalemia - replace H/o CAD H/o CHF Chronic hypoxic respiratory failure - stable on O2 Chronic reduced ejection fraction CHF with AICD (20% EF) - may be overloaded today, on milrinone per cardiology, will cont, consider restarting his lasix today if ok with nephro Vitals Vitals Vital Signs Date Time Temp Pulse Resp B/P (MAP) Pulse Ox O2 Delivery O2 Flow Rate FiO2 04/19/18 07:20 98.0 103 20 99/62 (74) 96 Nasal Cannula 3.0 98.0 Physical Exam General: Alert, Oriented X3, Cooperative, No acute distress Heart: Regular rate, Normal S1, Normal S2 Abdomen: Soft Extremities: No clubbing, Other (2+ edema) Skin: No breakdown, No significant lesion, Other (bilateral LE hyperpigmentation) Labs LABS Laboratory Tests Test 04/18/18 10:35 04/19/18 04:00 Prothrombin Time 35.5 SEC (11.7-14.0) Prothromb Time International Ratio 3.7 (0.8-1.1) White Blood Count 8.6 x10^3/uL (4.0-11.0) Red Blood Count 3.93 x10^6/uL (4.30-5.70) Hemoglobin 12.3 g/dL (13.0-17.5) Hematocrit 37.0 % (39.0-53.0) Mean Corpuscular Volume 94 fL (79-100) Mean Corpuscular Hemoglobin 31 pg (25-35) Mean Corpuscular Hemoglobin Concent 33 g/dL (31-37) Red Cell Distribution Width 19.1 % (11.5-14.5) Platelet Count 121 x10^3/uL (140-400) Neutrophils (%) (Auto) 70 % (31-73) Lymphocytes (%) (Auto) 12 % (24-48) Monocytes (%) (Auto) 14 % (0-9) Eosinophils (%) (Auto) 3 % (0-3) Basophils (%) (Auto) 1 % (0-3) Neutrophils # (Auto) 6.1 x10^3uL (1.8-7.7) Lymphocytes # (Auto) 1.0 x10^3/uL (1.0-4.8) Monocytes # (Auto) 1.2 x10^3/uL (0.0-1.1) Eosinophils # (Auto) 0.3 x10^3/uL (0.0-0.7) Basophils # (Auto) 0.1 x10^3/uL (0.0-0.2) Sodium Level 141 mmol/L (136-145) Potassium Level 3.3 mmol/L (3.5-5.1) Chloride Level 98 mmol/L (98-107) Carbon Dioxide Level 30 mmol/L (21-32) Anion Gap 13 (6-14) Blood Urea Nitrogen 79 mg/dL (8-26) Creatinine 2.6 mg/dL (0.7-1.3) Estimated GFR (Cockcroft-Gault) 24.5 Glucose Level 83 mg/dL (70-99) Calcium Level 8.4 mg/dL (8.5-10.1) Magnesium Level 2.5 mg/dL (1.8-2.4) Assessment and Plan Assessmemt and Plan Problems Medical Problems: (1) Hypokalemia Status: Acute Comment Review of Relevant I have reviewed the following items raj (where applicable) has been applied. Labs Laboratory Tests Test 04/17/18 12:02 04/17/18 14:00 04/17/18 17:00 04/18/18 04:00 White Blood Count 8.4 x10^3/uL (4.0-11.0) Red Blood Count 4.79 x10^6/uL (4.30-5.70) Hemoglobin 15.1 g/dL (13.0-17.5) Hematocrit 45.4 % (39.0-53.0) Mean Corpuscular Volume 95 fL (79-100) Mean Corpuscular Hemoglobin 32 pg (25-35) Mean Corpuscular Hemoglobin Concent 33 g/dL (31-37) Red Cell Distribution Width 19.2 % (11.5-14.5) Platelet Count 119 x10^3/uL (140-400) Neutrophils (%) (Auto) 72 % (31-73) Lymphocytes (%) (Auto) 12 % (24-48) Monocytes (%) (Auto) 13 % (0-9) Eosinophils (%) (Auto) 2 % (0-3) Basophils (%) (Auto) 1 % (0-3) Neutrophils # (Auto) 6.0 x10^3uL (1.8-7.7) Lymphocytes # (Auto) 1.0 x10^3/uL (1.0-4.8) Monocytes # (Auto) 1.1 x10^3/uL (0.0-1.1) Eosinophils # (Auto) 0.2 x10^3/uL (0.0-0.7) Basophils # (Auto) 0.1 x10^3/uL (0.0-0.2) Prothrombin Time 33.4 SEC (11.7-14.0) Prothromb Time International Ratio 3.4 (0.8-1.1) Activated Partial Thromboplast Time 48 SEC (24-38) Sodium Level 142 mmol/L (136-145) 142 mmol/L (136-145) Potassium Level 2.9 mmol/L (3.5-5.1) 2.9 mmol/L (3.5-5.1) Chloride Level 97 mmol/L (98-107) 97 mmol/L (98-107) Carbon Dioxide Level 34 mmol/L (21-32) 31 mmol/L (21-32) Anion Gap 11 (6-14) 14 (6-14) Blood Urea Nitrogen 81 mg/dL (8-26) 82 mg/dL (8-26) Creatinine 3.2 mg/dL (0.7-1.3) 2.9 mg/dL (0.7-1.3) Estimated GFR (Cockcroft-Gault) 19.2 21.6 BUN/Creatinine Ratio 25 (6-20) Glucose Level 108 mg/dL (70-99) 100 mg/dL (70-99) Calcium Level 9.0 mg/dL (8.5-10.1) 8.4 mg/dL (8.5-10.1) Magnesium Level 2.6 mg/dL (1.8-2.4) 2.4 mg/dL (1.8-2.4) Total Bilirubin 3.1 mg/dL (0.2-1.0) Aspartate Amino Transf (AST/SGOT) 25 U/L (15-37) Alanine Aminotransferase (ALT/SGPT) 23 U/L (16-63) Alkaline Phosphatase 118 U/L (46-116) Troponin I Quantitative 0.040 ng/mL (0.000-0.055) 0.043 ng/mL (0.000-0.055) 0.043 ng/mL (0.000-0.055) GK-Vmk-H-Type Natriuretic Peptide 3200 pg/mL (0-124) Total Protein 7.8 g/dL (6.4-8.2) Albumin 3.1 g/dL (3.4-5.0) Albumin/Globulin Ratio 0.7 (1.0-1.7) Lipase 267 U/L (73-393) Ethyl Alcohol Level < 10 mg/dL (0-10) Urine Collection Type Unknown Urine Color Yellow Urine Clarity Clear Urine pH 6.5 Urine Specific [place] 1.010 Urine Protein Negative mg/dL (NEG-TRACE) Urine Glucose (UA) Negative mg/dL (NEG) Urine Ketones (Stick) Negative mg/dL (NEG) Urine Blood Negative (NEG) Urine Nitrite Negative (NEG) Urine Bilirubin Negative (NEG) Urine Urobilinogen Dipstick 1.0 mg/dL (0.2 mg/dL) Urine Leukocyte Esterase Negative (NEG) Urine RBC Rare /HPF (0-2) Urine WBC Rare /HPF (0-4) Urine Bacteria 0 /HPF (0-FEW) Urine Hyaline Casts Few /HPF Thyroid Stimulating Hormone (TSH) 3.027 uIU/mL (0.358-3.74) Test 04/18/18 10:35 04/19/18 04:00 Prothrombin Time 35.5 SEC (11.7-14.0) Prothromb Time International Ratio 3.7 (0.8-1.1) White Blood Count 8.6 x10^3/uL (4.0-11.0) Red Blood Count 3.93 x10^6/uL (4.30-5.70) Hemoglobin 12.3 g/dL (13.0-17.5) Hematocrit 37.0 % (39.0-53.0) Mean Corpuscular Volume 94 fL (79-100) Mean Corpuscular Hemoglobin 31 pg (25-35) Mean Corpuscular Hemoglobin Concent 33 g/dL (31-37) Red Cell Distribution Width 19.1 % (11.5-14.5) Platelet Count 121 x10^3/uL (140-400) Neutrophils (%) (Auto) 70 % (31-73) Lymphocytes (%) (Auto) 12 % (24-48) Monocytes (%) (Auto) 14 % (0-9) Eosinophils (%) (Auto) 3 % (0-3) Basophils (%) (Auto) 1 % (0-3) Neutrophils # (Auto) 6.1 x10^3uL (1.8-7.7) Lymphocytes # (Auto) 1.0 x10^3/uL (1.0-4.8) Monocytes # (Auto) 1.2 x10^3/uL (0.0-1.1) Eosinophils # (Auto) 0.3 x10^3/uL (0.0-0.7) Basophils # (Auto) 0.1 x10^3/uL (0.0-0.2) Sodium Level 141 mmol/L (136-145) Potassium Level 3.3 mmol/L (3.5-5.1) Chloride Level 98 mmol/L (98-107) Carbon Dioxide Level 30 mmol/L (21-32) Anion Gap 13 (6-14) Blood Urea Nitrogen 79 mg/dL (8-26) Creatinine 2.6 mg/dL (0.7-1.3) Estimated GFR (Cockcroft-Gault) 24.5 Glucose Level 83 mg/dL (70-99) Calcium Level 8.4 mg/dL (8.5-10.1) Magnesium Level 2.5 mg/dL (1.8-2.4) Laboratory Tests Test 04/18/18 10:35 04/19/18 04:00 Prothrombin Time 35.5 SEC (11.7-14.0) Prothromb Time International Ratio 3.7 (0.8-1.1) White Blood Count 8.6 x10^3/uL (4.0-11.0) Red Blood Count 3.93 x10^6/uL (4.30-5.70) Hemoglobin 12.3 g/dL (13.0-17.5) Hematocrit 37.0 % (39.0-53.0) Mean Corpuscular Volume 94 fL (79-100) Mean Corpuscular Hemoglobin 31 pg (25-35) Mean Corpuscular Hemoglobin Concent 33 g/dL (31-37) Red Cell Distribution Width 19.1 % (11.5-14.5) Platelet Count 121 x10^3/uL (140-400) Neutrophils (%) (Auto) 70 % (31-73) Lymphocytes (%) (Auto) 12 % (24-48) Monocytes (%) (Auto) 14 % (0-9) Eosinophils (%) (Auto) 3 % (0-3) Basophils (%) (Auto) 1 % (0-3) Neutrophils # (Auto) 6.1 x10^3uL (1.8-7.7) Lymphocytes # (Auto) 1.0 x10^3/uL (1.0-4.8) Monocytes # (Auto) 1.2 x10^3/uL (0.0-1.1) Eosinophils # (Auto) 0.3 x10^3/uL (0.0-0.7) Basophils # (Auto) 0.1 x10^3/uL (0.0-0.2) Sodium Level 141 mmol/L (136-145) Potassium Level 3.3 mmol/L (3.5-5.1) Chloride Level 98 mmol/L (98-107) Carbon Dioxide Level 30 mmol/L (21-32) Anion Gap 13 (6-14) Blood Urea Nitrogen 79 mg/dL (8-26) Creatinine 2.6 mg/dL (0.7-1.3) Estimated GFR (Cockcroft-Gault) 24.5 Glucose Level 83 mg/dL (70-99) Calcium Level 8.4 mg/dL (8.5-10.1) Magnesium Level 2.5 mg/dL (1.8-2.4) Medications Current Medications Potassium Chloride (Klor-Con) 40 meq 1X ONCE PO Last administered on at 13:48; Start 04/17/18 at 13:30; Stop 04/17/18 at 13:31; Status DC Sodium Chloride (Normal Saline Flush) 3 ml PRN DAILY PRN IV AFTER MEDS AND BLOOD DRAWS; Start 04/17/18 at 21:45 Ondansetron HCl (Zofran) 4 mg PRN Q6HRS PRN IV NAUSEA/VOMITING; Start 04/17/18 at 21:45 Morphine Sulfate (Morphine Sulfate) 2 mg PRN Q1HR PRN IV PAIN; Start 04/17/18 at 21:45 Acetaminophen (Tylenol) 650 mg PRN Q6HRS PRN PO Headaches, Temp > 101.5F; Start 04/17/18 at 21:45 Senna/Docusate Sodium (Senna Plus) 1 tab BID PO Last administered on 04/18/18at 20:23; Start 04/18/18 at 09:00 Heparin Sodium (Porcine) (Heparin Sodium) 5,000 unit Q12HR SQ ; Start 04/18/18 at 09:00; Stop 04/18/18 at 09:09; Status DC Temazepam (Restoril) 7.5 mg PRN QHS PRN PO INSOMNIA Last administered on at 20:22; Start 04/17/18 at 22:00 Rivaroxaban (Xarelto) 10 mg DAILY PO ; Start 04/18/18 at 09:00; Stop 04/18/18 at 10:44; Status DC Simvastatin (Zocor) 5 mg HS PO Last administered on 04/18/18at 20:23; Start 04/18/18 at 21:00 Carvedilol (Coreg) 25 mg BIDWMEALS PO Last administered on 04/18/18at 10:08; Start 04/18/18 at 08:00; Stop 04/18/18 at 11:50; Status DC Non-Formulary Medication (Potassium Gluconate ) 99 mg DAILY PO ; Start 04/18/18 at 09:00; Status UNV Potassium Chloride (Klor-Con) 40 meq 1X ONCE PO Last administered on at 10:07; Start 04/18/18 at 09:45; Stop 04/18/18 at 09:46; Status DC Potassium Chloride (Klor-Con) 40 meq 1X ONCE PO Last administered on at 13:30; Start 04/18/18 at 14:00; Stop 04/18/18 at 14:01; Status DC Potassium Chloride (Klor-Con) 40 meq 1X ONCE PO ; Start 04/18/18 at 14:00; Stop 04/18/18 at 14:01; Status Cancel Rivaroxaban (Xarelto) 10 mg HS PO ; Start 04/18/18 at 21:00; Stop 04/18/18 at 21 :00; Status DC Rivaroxaban (Xarelto) 15 mg QHS PO ; Start 04/18/18 at 21:00; Stop 04/18/18 at 21:00; Status DC Metoprolol Tartrate (Lopressor) 25 mg BID PO Last administered on 04/18/18at 20: 23; Start 04/18/18 at 12:00 Furosemide (Lasix) 40 mg 1X ONCE IVP Last administered on 04/18/18at 15:02; Start 04/18/18 at 13:30; Stop 04/18/18 at 13:33; Status DC Milrinone Lactate/ Dextrose 100 ml @ 2.738 mls/ hr CONT PRN IV SEE I/O RECORD Last administered on 04/18/18at 18:27; Start 04/18/18 at 17:15 Active Scripts Active Reported Xarelto (Rivaroxaban) 15 Mg Tablet 15 Mg PO DAILYWSUP Fluticasone Propionate Nasal [place] (Fluticasone Propionate) 16 Gm [place].susp 2 [place] NS DAILY Potassium Gluconate 99 Mg Tablet 99 Mg PO DAILY Biotin 2,500 Mcg Capsule 5,000 Mcg PO DAILY Cinnamon (Cinnamon Bark) 500 Mg Capsule 1,000 Mg PO DAILY Apple Cider Vinegar (Cider Vinegar) 600 Mg Capsule 600 Mg PO BID Turmeric Complex 500 mg Cap (Turmeric/Turmeric Ext/Pepr Ext) 1 Each Capsule 1 Each PO DAILY L-Arginine (Arginine Hcl) 1,000 Mg Tablet 1,000 Mg PO DAILY Acidophilus Lactobacillus (Lactobacillus Acidophilus) 1 Each Capsule 1 Each PO DAILY Garlic 1,000 Mg Capsule 1,000 Mg PO DAILYWBKFT Furosemide 80 Mg Tablet 1 Tab PO DAILY Coconut Oil 1,000 Mg Capsule 1,000 Mg PO BID Centrum Silver Men Tablet (Multivit-Min/FA/Lycopen/Lutein) 1 Each Tablet 1 Each PO DAILY Coq-10 (Ubidecarenone) 100 Mg Capsule 100 Mg PO DAILY Flax Oil (Flaxseed Oil) 1,000 Mg Capsule 1,000 Mg PO TIDBFRMEAL Fish Oil 1,000 mg Softgel ([place]-3S/Dha/Epa/Fish Oil) 1 Each Capsule 1 Each PO TIDBFRMEAL Azelastine Hcl 137 Mcg/0.137 Ml [place].pump 2 [place] NS BID Carvedilol 25 Mg Tablet 1 Tab PO BID Simvastatin 10 Mg Tablet 5 Mg PO HS Metolazone 10 Mg Tablet 10 Mg PO DAILY Milk Thistle 175 Mg Tablet 175 Mg PO DAILY Vitals/I & O Vital Sign - Last 24 Hours 04/18/18 04/18/18 04/18/18 04/18/18 10:08 10:11 11:24 14:51 Temp 97.4 97.4 97.4 97.4 Pulse 101 101 94 113 Resp 18 18 B/P (MAP) 97/67 (77) 108/76 (87) 86/63 (71) Pulse Ox 100 100 O2 Flow Rate 2.0 2.0 04/18/18 04/18/18 04/18/18 04/18/18 19:40 20:00 20:23 23:17 Temp 97.4 97.7 97.4 97.7 Pulse 110 110 103 Resp 22 22 B/P (MAP) 95/63 (74) 95/63 83/52 (62) Pulse Ox 94 97 O2 Delivery Nasal Cannula Nasal Cannula Nasal Cannula O2 Flow Rate 3.0 3.0 3.0 04/19/18 04/19/18 03:55 07:20 Temp 97.7 98.0 97.7 98.0 Pulse 103 103 Resp 24 20 B/P (MAP) 85/61 (69) 99/62 (74) Pulse Ox 96 96 O2 Delivery Nasal Cannula Nasal Cannula O2 Flow Rate 3.0 3.0 Intake and Output 04/18/18 04/18/18 04/19/18 15:00 23:00 07:00 Intake Total 1120 ml 400 ml Output Total 900 ml 375 ml Balance 220 ml 25 ml MACK HONEYCUTT MD Apr 19, 2018 08:29
[2018-04-19] MEDS: SENNOSIDES/DOCUSATE 8.6/50MG TABLET. PO SCH ×2 (09:00→21:10)
[2018-04-19 10:49] VITALS: BP 94/73
--- NOTE | 2018-04-19 11:36 | PDOC ---
Renal-Progress Notes Subjective Notes Notes BETTER History of Present Illness Hx of present illness STABLE Vitals Vitals Vital Signs Date Time Temp Pulse Resp B/P (MAP) Pulse Ox O2 Delivery O2 Flow Rate FiO2 04/19/18 10:49 98.0 109 20 94/73 (80) 94 Nasal Cannula 3.0 98.0 Weight Weight [ ] I.O. Intake and Output Intake and Output 04/19/18 07:00 Intake Total 1520 ml Output Total 1275 ml Balance 245 ml Intake Oral 1520 ml Output Urine Total 1275 ml Labs Labs Laboratory Tests Test 04/19/18 04:00 White Blood Count 8.6 x10^3/uL (4.0-11.0) Red Blood Count 3.93 x10^6/uL (4.30-5.70) Hemoglobin 12.3 g/dL (13.0-17.5) Hematocrit 37.0 % (39.0-53.0) Mean Corpuscular Volume 94 fL (79-100) Mean Corpuscular Hemoglobin 31 pg (25-35) Mean Corpuscular Hemoglobin Concent 33 g/dL (31-37) Red Cell Distribution Width 19.1 % (11.5-14.5) Platelet Count 121 x10^3/uL (140-400) Neutrophils (%) (Auto) 70 % (31-73) Lymphocytes (%) (Auto) 12 % (24-48) Monocytes (%) (Auto) 14 % (0-9) Eosinophils (%) (Auto) 3 % (0-3) Basophils (%) (Auto) 1 % (0-3) Neutrophils # (Auto) 6.1 x10^3uL (1.8-7.7) Lymphocytes # (Auto) 1.0 x10^3/uL (1.0-4.8) Monocytes # (Auto) 1.2 x10^3/uL (0.0-1.1) Eosinophils # (Auto) 0.3 x10^3/uL (0.0-0.7) Basophils # (Auto) 0.1 x10^3/uL (0.0-0.2) Sodium Level 141 mmol/L (136-145) Potassium Level 3.3 mmol/L (3.5-5.1) Chloride Level 98 mmol/L (98-107) Carbon Dioxide Level 30 mmol/L (21-32) Anion Gap 13 (6-14) Blood Urea Nitrogen 79 mg/dL (8-26) Creatinine 2.6 mg/dL (0.7-1.3) Estimated GFR (Cockcroft-Gault) 24.5 Glucose Level 83 mg/dL (70-99) Calcium Level 8.4 mg/dL (8.5-10.1) Magnesium Level 2.5 mg/dL (1.8-2.4) Review of Systems Constitutional: yes: alert, oriented Ears/Nose/Throat: Yes: no symptom reported Eyes: Yes: no symptom reported Pulmonary: Yes no symptom reported Cardiovascular: Yes no symptom reported Gastrointestional: Yes: no symptom reported Genitourinary: Yes: no symptom reported Musculoskeletal: Yes: no symptom reported Skin: Yes no symptom reported Psychiatric/Neurological: Yes: no symptom reported Endocrine: Yes: no symptom reported Physical Exam General Appearance: no apparent distress Respiratory: decreased breath sounds Heart: S1S2 Abdomen: soft, bowel sounds present Genitourinary: bladder flat Extremities: pulses present Neurology: alert Musculoskeletal: Osteoarthritis Assessment Assessment IMP MUNA-BETTER WITH CR DOWN TO 2.6 MET ALKALOSIS-BETTER HYPOKALEMIA - BETTER CM WITH EF OF 20% S/P SYNCOPE PLAN REPLACE K NEEDED CONSIDER ALDACTONE WILL NEED TO CONSIDER LATISHA-I/ARB ONCE MNUA BETTER WILL FOLLOW GEOFF VO MD Apr 19, 2018 11:36
[2018-04-19] MEDS: METOPROLOL SUCC 24HR ER 25 MG TAB.ER.24H. PO SCH (11:49)
[2018-04-19] MEDS: MILRINONE 20MG/100ML PREMIX 100 ML IV PRN (11:50)
[2018-04-19] MEDS ORDERED: POTASSIUM CHLORIDE 20 MEQ TABLET.ER. PO ONE (12:15)
--- NOTE | 2018-04-19 13:32 | PDOC ---
PROGRESS NOTES Subjective Subjective Patient feeling slightly worse compared to yesterday with increasing dyspnea and edema Objective Objective Vital Signs Date Time Temp Pulse Resp B/P (MAP) Pulse Ox O2 Delivery O2 Flow Rate FiO2 04/19/18 11:49 109 94/73 04/19/18 10:49 98.0 20 94 Nasal Cannula 3.0 98.0 Intake and Output 04/19/18 07:00 Intake Total 1520 ml Output Total 1275 ml Balance 245 ml Intake Oral 1520 ml Output Urine Total 1275 ml Physical Exam Abdomen: Soft Heart: Regular rate Extremities: No clubbing, Other (2+ pitting pedal edema) General: Alert, Cooperative, No acute distress HEENT: Atraumatic, PERRLA Lungs: Other (bilateral basal crepitations) MUSCULOSKELETAL: No deformity, No swelling Neuro: Normal speech Psych/Mental Status: Mental status NL, Mood NL Skin: No breakdown, No significant lesion, Other (bilateral LE hyperpigmentation) Assessment Assessment 1. Acute on chronic diastolic/systolic CHF: Appears to be more decompensated compared to yesterday based on weight gain, physical exam and chest x-ray findings. LVEF 20% on 2-D echocardiogram. Continue milrinone infusion. Consider IV Lasix - defer to nephrology team secondary to renal insufficiency. 2. Chronic AFIB: intermittent RVR. Continue metoprolol. INR still elevated. Hold Xarelto. 3. Syncope: Multifactorial. Telemetry did not show any significant pauses. We will consider event monitor as an outpatient 4. MUNA on CKD: Nephrology team following. 5. CAD: past CABGx5, clinically stable, chest pain-free. 6. ICM with s/p AICD: [employer]. Device interrogation showed normal function. 7. Hyperlipidemia: Statins Plan Plan of Care Problems Medical Problems: (1) Hypokalemia Status: Acute Comment Review of Relevant I have reviewed the following items raj (where applicable) has been applied. Labs Laboratory Tests Test 04/19/18 04:00 White Blood Count 8.6 x10^3/uL (4.0-11.0) Red Blood Count 3.93 x10^6/uL (4.30-5.70) Hemoglobin 12.3 g/dL (13.0-17.5) Hematocrit 37.0 % (39.0-53.0) Mean Corpuscular Volume 94 fL (79-100) Mean Corpuscular Hemoglobin 31 pg (25-35) Mean Corpuscular Hemoglobin Concent 33 g/dL (31-37) Red Cell Distribution Width 19.1 % (11.5-14.5) Platelet Count 121 x10^3/uL (140-400) Neutrophils (%) (Auto) 70 % (31-73) Lymphocytes (%) (Auto) 12 % (24-48) Monocytes (%) (Auto) 14 % (0-9) Eosinophils (%) (Auto) 3 % (0-3) Basophils (%) (Auto) 1 % (0-3) Neutrophils # (Auto) 6.1 x10^3uL (1.8-7.7) Lymphocytes # (Auto) 1.0 x10^3/uL (1.0-4.8) Monocytes # (Auto) 1.2 x10^3/uL (0.0-1.1) Eosinophils # (Auto) 0.3 x10^3/uL (0.0-0.7) Basophils # (Auto) 0.1 x10^3/uL (0.0-0.2) Sodium Level 141 mmol/L (136-145) Potassium Level 3.3 mmol/L (3.5-5.1) Chloride Level 98 mmol/L (98-107) Carbon Dioxide Level 30 mmol/L (21-32) Anion Gap 13 (6-14) Blood Urea Nitrogen 79 mg/dL (8-26) Creatinine 2.6 mg/dL (0.7-1.3) Estimated GFR (Cockcroft-Gault) 24.5 Glucose Level 83 mg/dL (70-99) Calcium Level 8.4 mg/dL (8.5-10.1) Magnesium Level 2.5 mg/dL (1.8-2.4) Medications Current Medications Metoprolol Succinate (Toprol Xl) 25 mg DAILY PO Last administered on 04/19/18at 11:49; Start 04/19/18 at 11:00 Milrinone Lactate/ Dextrose 100 ml @ 2.738 mls/ hr CONT PRN IV SEE I/O RECORD Last administered on 04/19/18at 11:50; Start 04/18/18 at 17:15 Potassium Chloride (Klor-Con) 20 meq 1X ONCE PO Last administered on at 12:53; Start 04/19/18 at 12:15; Stop 04/19/18 at 12:16; Status DC Potassium Chloride (Klor-Con) 40 meq 1X ONCE PO Last administered on at 13:30; Start 04/18/18 at 14:00; Stop 04/18/18 at 14:01; Status DC Potassium Chloride (Klor-Con) 40 meq 1X ONCE PO ; Start 04/18/18 at 14:00; Stop 04/18/18 at 14:01; Status Cancel Rivaroxaban (Xarelto) 10 mg HS PO ; Start 04/18/18 at 21:00; Stop 04/18/18 at 21 :00; Status DC Rivaroxaban (Xarelto) 15 mg QHS PO ; Start 04/18/18 at 21:00; Stop 04/18/18 at 21:00; Status DC Simvastatin (Zocor) 5 mg HS PO Last administered on 04/18/18at 20:23; Start 04/18/18 at 21:00 Vitals/I & O Vital Sign - Last 24 Hours 04/18/18 04/18/18 04/18/18 04/18/18 14:51 19:40 20:00 20:23 Temp 97.4 97.4 97.4 97.4 Pulse 113 110 110 Resp 18 22 B/P (MAP) 86/63 (71) 95/63 (74) 95/63 Pulse Ox 100 94 O2 Delivery Nasal Cannula Nasal Cannula O2 Flow Rate 2.0 3.0 3.0 04/18/18 04/19/18 04/19/18 04/19/18 23:17 03:55 07:20 08:00 Temp 97.7 97.7 98.0 97.7 97.7 98.0 Pulse 103 103 103 Resp 22 24 20 B/P (MAP) 83/52 (62) 85/61 (69) 99/62 (74) Pulse Ox 97 96 96 O2 Delivery Nasal Cannula Nasal Cannula Nasal Cannula Nasal Cannula O2 Flow Rate 3.0 3.0 3.0 3.0 04/19/18 04/19/18 10:49 11:49 Temp 98.0 98.0 Pulse 109 109 Resp 20 B/P (MAP) 94/73 (80) 94/73 Pulse Ox 94 O2 Delivery Nasal Cannula O2 Flow Rate 3.0 Intake and Output 04/18/18 04/18/18 04/19/18 15:00 23:00 07:00 Intake Total 1120 ml 400 ml Output Total 900 ml 375 ml Balance 220 ml 25 ml IRIS BEST MD Apr 19, 2018 13:32
[2018-04-19 14:40] VITALS: BP 95/63
[2018-04-19] MEDS: FUROSEMIDE 40 MG TABLET. PO SCH (17:25)
[2018-04-19] MEDS ORDERED: FUROSEMIDE 40 MG/4 ML VIAL. IVP ONE (17:45)
[2018-04-19 19:30] VITALS: BP 107/68
[2018-04-19] MEDS: TEMAZEPAM 7.5 MG CAPSULE PO PRN (21:10)
[2018-04-19] MEDS: SIMVASTATIN 10 MG TABLET PO SCH (21:11)
[2018-04-19 23:18] VITALS: BP 106/75
[2018-04-20] VITALS (8 sets, daily range): BP systolic 79–112; BP diastolic 55–75
[2018-04-20 05:24] LABS: BASO # 0.1 x10^3/uL (0.0-0.2); BASO % 1 % (0-3); EOS # 0.2 x10^3/uL (0.0-0.7); EOS % 3 % (0-3); HEMOGLOBIN 12.6 g/dL (13.0-17.5); LYMPH % 12 % (24-48); MEAN CORPUSCULAR HEMOGLOBIN 31 pg (25-35); MEAN CORPUSCULAR HGB CONC 33 g/dL (31-37); MEAN CORPUSCULAR VOLUME 94 fL (79-100); MONO # 1.3 x10^3/uL (0.0-1.1); MONO % 15 % (0-9); NEUT # 6.1 x10^3uL (1.8-7.7); NEUT % 70 % (31-73); PLATELET COUNT 129 x10^3/uL (140-400); RED BLOOD COUNT 4.05 x10^6/uL (4.30-5.70); RED CELL DISTRIBUTION WIDTH 19.3 % (11.5-14.5); WHITE BLOOD COUNT 8.8 x10^3/uL (4.0-11.0)
[2018-04-20 05:32] LABS: CALCIUM 8.6 mg/dL (8.5-10.1); CREATININE 2.5 mg/dL (0.7-1.3); GFR 25.6
--- NOTE | 2018-04-20 07:23 | PDOC ---
PROGRESS NOTES Chief Complaint Chief Complaint Syncope and collapse Acute renal failure Hypokalemia H/o CAD H/o CHF Chronic hypoxic respiratory failure Chronic reduced ejection fraction CHF with AICD (20% EF) History of Present Illness History of Present Illness Pt seen and examined. Feels more short of breath today, fatigued and swollen in his feet. Renal function improved today. 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 Likely vagal vs hypotension with prerenal azotemia Acute renal failure - likely vasomotor from overdiuresis Hypokalemia - replace, will start aldactone H/o CAD H/o CHF Chronic hypoxic respiratory failure - stable on O2 Chronic reduced ejection fraction CHF with AICD (20% EF) - overloaded today, on milrinone per cardiology, will cont, restart lasix today and add aldactone as it is ok with nephro FEN - Cardiac diet PPX - SCDs, heparin FULL CODE Cont inpatient to get his volume status in good balance, likely 1-2 more days. Vitals Vitals Vital Signs Date Time Temp Pulse Resp B/P (MAP) Pulse Ox O2 Delivery O2 Flow Rate FiO2 04/20/18 03:50 97.9 97 24 111/69 (83) 94 Nasal Cannula 3.0 97.9 Physical Exam General: Alert, Cooperative, No acute distress Heart: Regular rate Abdomen: Soft Extremities: No clubbing, Other (2+ edema) Skin: No breakdown, No significant lesion, Other (bilateral LE hyperpigmentation) Labs LABS Laboratory Tests Test 04/20/18 04:45 White Blood Count 8.8 x10^3/uL (4.0-11.0) Red Blood Count 4.05 x10^6/uL (4.30-5.70) Hemoglobin 12.6 g/dL (13.0-17.5) Hematocrit 38.0 % (39.0-53.0) Mean Corpuscular Volume 94 fL (79-100) Mean Corpuscular Hemoglobin 31 pg (25-35) Mean Corpuscular Hemoglobin Concent 33 g/dL (31-37) Red Cell Distribution Width 19.3 % (11.5-14.5) Platelet Count 129 x10^3/uL (140-400) Neutrophils (%) (Auto) 70 % (31-73) Lymphocytes (%) (Auto) 12 % (24-48) Monocytes (%) (Auto) 15 % (0-9) Eosinophils (%) (Auto) 3 % (0-3) Basophils (%) (Auto) 1 % (0-3) Neutrophils # (Auto) 6.1 x10^3uL (1.8-7.7) Lymphocytes # (Auto) 1.0 x10^3/uL (1.0-4.8) Monocytes # (Auto) 1.3 x10^3/uL (0.0-1.1) Eosinophils # (Auto) 0.2 x10^3/uL (0.0-0.7) Basophils # (Auto) 0.1 x10^3/uL (0.0-0.2) Sodium Level 140 mmol/L (136-145) Potassium Level 3.0 mmol/L (3.5-5.1) Chloride Level 97 mmol/L (98-107) Carbon Dioxide Level 31 mmol/L (21-32) Anion Gap 12 (6-14) Blood Urea Nitrogen 76 mg/dL (8-26) Creatinine 2.5 mg/dL (0.7-1.3) Estimated GFR (Cockcroft-Gault) 25.6 Glucose Level 85 mg/dL (70-99) Calcium Level 8.6 mg/dL (8.5-10.1) Magnesium Level 2.3 mg/dL (1.8-2.4) Assessment and Plan Assessmemt and Plan Problems Medical Problems: (1) Hypokalemia Status: Acute Comment Review of Relevant I have reviewed the following items raj (where applicable) has been applied. Labs Laboratory Tests Test 04/18/18 10:35 04/19/18 04:00 04/20/18 04:45 Prothrombin Time 35.5 SEC (11.7-14.0) Prothromb Time International Ratio 3.7 (0.8-1.1) White Blood Count 8.6 x10^3/uL (4.0-11.0) 8.8 x10^3/uL (4.0-11.0) Red Blood Count 3.93 x10^6/uL (4.30-5.70) 4.05 x10^6/uL (4.30-5.70) Hemoglobin 12.3 g/dL (13.0-17.5) 12.6 g/dL (13.0-17.5) Hematocrit 37.0 % (39.0-53.0) 38.0 % (39.0-53.0) Mean Corpuscular Volume 94 fL (79-100) 94 fL (79-100) Mean Corpuscular Hemoglobin 31 pg (25-35) 31 pg (25-35) Mean Corpuscular Hemoglobin Concent 33 g/dL (31-37) 33 g/dL (31-37) Red Cell Distribution Width 19.1 % (11.5-14.5) 19.3 % (11.5-14.5) Platelet Count 121 x10^3/uL (140-400) 129 x10^3/uL (140-400) Neutrophils (%) (Auto) 70 % (31-73) 70 % (31-73) Lymphocytes (%) (Auto) 12 % (24-48) 12 % (24-48) Monocytes (%) (Auto) 14 % (0-9) 15 % (0-9) Eosinophils (%) (Auto) 3 % (0-3) 3 % (0-3) Basophils (%) (Auto) 1 % (0-3) 1 % (0-3) Neutrophils # (Auto) 6.1 x10^3uL (1.8-7.7) 6.1 x10^3uL (1.8-7.7) Lymphocytes # (Auto) 1.0 x10^3/uL (1.0-4.8) 1.0 x10^3/uL (1.0-4.8) Monocytes # (Auto) 1.2 x10^3/uL (0.0-1.1) 1.3 x10^3/uL (0.0-1.1) Eosinophils # (Auto) 0.3 x10^3/uL (0.0-0.7) 0.2 x10^3/uL (0.0-0.7) Basophils # (Auto) 0.1 x10^3/uL (0.0-0.2) 0.1 x10^3/uL (0.0-0.2) Sodium Level 141 mmol/L (136-145) 140 mmol/L (136-145) Potassium Level 3.3 mmol/L (3.5-5.1) 3.0 mmol/L (3.5-5.1) Chloride Level 98 mmol/L (98-107) 97 mmol/L (98-107) Carbon Dioxide Level 30 mmol/L (21-32) 31 mmol/L (21-32) Anion Gap 13 (6-14) 12 (6-14) Blood Urea Nitrogen 79 mg/dL (8-26) 76 mg/dL (8-26) Creatinine 2.6 mg/dL (0.7-1.3) 2.5 mg/dL (0.7-1.3) Estimated GFR (Cockcroft-Gault) 24.5 25.6 Glucose Level 83 mg/dL (70-99) 85 mg/dL (70-99) Calcium Level 8.4 mg/dL (8.5-10.1) 8.6 mg/dL (8.5-10.1) Magnesium Level 2.5 mg/dL (1.8-2.4) 2.3 mg/dL (1.8-2.4) Laboratory Tests Test 04/20/18 04:45 White Blood Count 8.8 x10^3/uL (4.0-11.0) Red Blood Count 4.05 x10^6/uL (4.30-5.70) Hemoglobin 12.6 g/dL (13.0-17.5) Hematocrit 38.0 % (39.0-53.0) Mean Corpuscular Volume 94 fL (79-100) Mean Corpuscular Hemoglobin 31 pg (25-35) Mean Corpuscular Hemoglobin Concent 33 g/dL (31-37) Red Cell Distribution Width 19.3 % (11.5-14.5) Platelet Count 129 x10^3/uL (140-400) Neutrophils (%) (Auto) 70 % (31-73) Lymphocytes (%) (Auto) 12 % (24-48) Monocytes (%) (Auto) 15 % (0-9) Eosinophils (%) (Auto) 3 % (0-3) Basophils (%) (Auto) 1 % (0-3) Neutrophils # (Auto) 6.1 x10^3uL (1.8-7.7) Lymphocytes # (Auto) 1.0 x10^3/uL (1.0-4.8) Monocytes # (Auto) 1.3 x10^3/uL (0.0-1.1) Eosinophils # (Auto) 0.2 x10^3/uL (0.0-0.7) Basophils # (Auto) 0.1 x10^3/uL (0.0-0.2) Sodium Level 140 mmol/L (136-145) Potassium Level 3.0 mmol/L (3.5-5.1) Chloride Level 97 mmol/L (98-107) Carbon Dioxide Level 31 mmol/L (21-32) Anion Gap 12 (6-14) Blood Urea Nitrogen 76 mg/dL (8-26) Creatinine 2.5 mg/dL (0.7-1.3) Estimated GFR (Cockcroft-Gault) 25.6 Glucose Level 85 mg/dL (70-99) Calcium Level 8.6 mg/dL (8.5-10.1) Magnesium Level 2.3 mg/dL (1.8-2.4) Medications Current Medications Potassium Chloride (Klor-Con) 40 meq 1X ONCE PO Last administered on at 13:48; Start 04/17/18 at 13:30; Stop 04/17/18 at 13:31; Status DC Sodium Chloride (Normal Saline Flush) 3 ml PRN DAILY PRN IV AFTER MEDS AND BLOOD DRAWS; Start 04/17/18 at 21:45 Ondansetron HCl (Zofran) 4 mg PRN Q6HRS PRN IV NAUSEA/VOMITING; Start 04/17/18 at 21:45 Morphine Sulfate (Morphine Sulfate) 2 mg PRN Q1HR PRN IV PAIN; Start 04/17/18 at 21:45 Acetaminophen (Tylenol) 650 mg PRN Q6HRS PRN PO Headaches, Temp > 101.5F; Start 04/17/18 at 21:45 Senna/Docusate Sodium (Senna Plus) 1 tab BID PO Last administered on 04/19/18at 21:10; Start 04/18/18 at 09:00 Heparin Sodium (Porcine) (Heparin Sodium) 5,000 unit Q12HR SQ ; Start 04/18/18 at 09:00; Stop 04/18/18 at 09:09; Status DC Temazepam (Restoril) 7.5 mg PRN QHS PRN PO INSOMNIA Last administered on at 21:10; Start 04/17/18 at 22:00 Rivaroxaban (Xarelto) 10 mg DAILY PO ; Start 04/18/18 at 09:00; Stop 04/18/18 at 10:44; Status DC Simvastatin (Zocor) 5 mg HS PO Last administered on 04/19/18at 21:11; Start 04/18/18 at 21:00 Carvedilol (Coreg) 25 mg BIDWMEALS PO Last administered on 04/18/18at 10:08; Start 04/18/18 at 08:00; Stop 04/18/18 at 11:50; Status DC Non-Formulary Medication (Potassium Gluconate ) 99 mg DAILY PO ; Start 04/18/18 at 09:00; Status UNV Potassium Chloride (Klor-Con) 40 meq 1X ONCE PO Last administered on at 10:07; Start 04/18/18 at 09:45; Stop 04/18/18 at 09:46; Status DC Potassium Chloride (Klor-Con) 40 meq 1X ONCE PO Last administered on at 13:30; Start 04/18/18 at 14:00; Stop 04/18/18 at 14:01; Status DC Potassium Chloride (Klor-Con) 40 meq 1X ONCE PO ; Start 04/18/18 at 14:00; Stop 04/18/18 at 14:01; Status Cancel Rivaroxaban (Xarelto) 10 mg HS PO ; Start 04/18/18 at 21:00; Stop 04/18/18 at 21 :00; Status DC Rivaroxaban (Xarelto) 15 mg QHS PO ; Start 04/18/18 at 21:00; Stop 04/18/18 at 21:00; Status DC Metoprolol Tartrate (Lopressor) 25 mg BID PO Last administered on 04/18/18at 20: 23; Start 04/18/18 at 12:00; Stop 04/19/18 at 10:18; Status DC Furosemide (Lasix) 40 mg 1X ONCE IVP Last administered on 04/18/18at 15:02; Start 04/18/18 at 13:30; Stop 04/18/18 at 13:33; Status DC Milrinone Lactate/ Dextrose 100 ml @ 2.738 mls/ hr CONT PRN IV SEE I/O RECORD Last administered on 04/19/18at 11:50; Start 04/18/18 at 17:15 Metoprolol Succinate (Toprol Xl) 25 mg DAILY PO Last administered on 04/19/18at 11:49; Start 04/19/18 at 11:00 Potassium Chloride (Klor-Con) 20 meq 1X ONCE PO Last administered on at 12:53; Start 04/19/18 at 12:15; Stop 04/19/18 at 12:16; Status DC Spironolactone (Aldactone) 25 mg DAILY PO ; Start 04/20/18 at 09:00 Furosemide (Lasix) 40 mg 1X ONCE IVP Last administered on 04/19/18at 17:44; Start 04/19/18 at 17:45; Stop 04/19/18 at 17:46; Status DC Furosemide (Lasix) 40 mg BID92 PO ; Start 04/19/18 at 17:30 Active Scripts Active Reported Xarelto (Rivaroxaban) 15 Mg Tablet 15 Mg PO DAILYWSUP Fluticasone Propionate Nasal [place] (Fluticasone Propionate) 16 Gm [place].susp 2 [place] NS DAILY Potassium Gluconate 99 Mg Tablet 99 Mg PO DAILY Biotin 2,500 Mcg Capsule 5,000 Mcg PO DAILY Cinnamon (Cinnamon Bark) 500 Mg Capsule 1,000 Mg PO DAILY Apple Cider Vinegar (Cider Vinegar) 600 Mg Capsule 600 Mg PO BID Turmeric Complex 500 mg Cap (Turmeric/Turmeric Ext/Pepr Ext) 1 Each Capsule 1 Each PO DAILY L-Arginine (Arginine Hcl) 1,000 Mg Tablet 1,000 Mg PO DAILY Acidophilus Lactobacillus (Lactobacillus Acidophilus) 1 Each Capsule 1 Each PO DAILY Garlic 1,000 Mg Capsule 1,000 Mg PO DAILYWBKFT Furosemide 80 Mg Tablet 1 Tab PO DAILY Coconut Oil 1,000 Mg Capsule 1,000 Mg PO BID Centrum Silver Men Tablet (Multivit-Min/FA/Lycopen/Lutein) 1 Each Tablet 1 Each PO DAILY Coq-10 (Ubidecarenone) 100 Mg Capsule 100 Mg PO DAILY Flax Oil (Flaxseed Oil) 1,000 Mg Capsule 1,000 Mg PO TIDBFRMEAL Fish Oil 1,000 mg Softgel ([place]-3S/Dha/Epa/Fish Oil) 1 Each Capsule 1 Each PO TIDBFRMEAL Azelastine Hcl 137 Mcg/0.137 Ml [place].pump 2 [place] NS BID Carvedilol 25 Mg Tablet 1 Tab PO BID Simvastatin 10 Mg Tablet 5 Mg PO HS Metolazone 10 Mg Tablet 10 Mg PO DAILY Milk Thistle 175 Mg Tablet 175 Mg PO DAILY Vitals/I & O Vital Sign - Last 24 Hours 04/19/18 04/19/18 04/19/18 04/19/18 08:00 10:49 11:49 14:40 Temp 98.0 98.5 98.0 98.5 Pulse 109 109 108 Resp 20 20 B/P (MAP) 94/73 (80) 94/73 95/63 (74) Pulse Ox 94 97 O2 Delivery Nasal Cannula Nasal Cannula Nasal Cannula O2 Flow Rate 3.0 3.0 3.0 04/19/18 04/19/18 04/19/18 04/20/18 19:30 20:00 23:18 03:50 Temp 97.6 98.9 97.9 97.6 98.9 97.9 Pulse 103 112 97 Resp 24 22 24 B/P (MAP) 107/68 (81) 106/75 (85) 111/69 (83) Pulse Ox 92 96 94 O2 Delivery Room Air Room Air Nasal Cannula Nasal Cannula O2 Flow Rate 3.0 3.0 Intake and Output 04/19/18 04/19/18 04/20/18 15:00 23:00 07:00 Intake Total 340 ml 900 ml 700 ml Output Total 300 ml 200 ml 1200 ml Balance 40 ml 700 ml -500 ml MACK HONEYCUTT MD Apr 20, 2018 07:23
[2018-04-20] MEDS ORDERED: POTASSIUM CHLORIDE 20 MEQ TABLET.ER. PO ONE (08:30)
[2018-04-20] MEDS: SPIRONOLACTONE 25 MG TABLET PO SCH (08:32)
[2018-04-20] MEDS: SENNOSIDES/DOCUSATE 8.6/50MG TABLET. PO SCH ×3 (08:32→20:42)
[2018-04-20] MEDS: FUROSEMIDE 40 MG TABLET. PO SCH ×2 (08:32→14:25)
[2018-04-20] MEDS: METOPROLOL SUCC 24HR ER 25 MG TAB.ER.24H. PO SCH (08:33)
--- NOTE | 2018-04-20 10:14 | PDOC ---
Renal-Progress Notes Subjective Notes Notes FEELING BETTER History of Present Illness Hx of present illness STABLE Vitals Vitals Vital Signs Date Time Temp Pulse Resp B/P (MAP) Pulse Ox O2 Delivery O2 Flow Rate FiO2 04/20/18 08:33 117 109/68 04/20/18 07:43 Nasal Cannula 2.5 04/20/18 07:35 97.6 20 94 97.6 Weight Weight [ ] I.O. Intake and Output Intake and Output 04/20/18 07:00 Intake Total 1940 ml Output Total 1700 ml Balance 240 ml Intake Oral 1740 ml IV Total 200 ml Output Urine Total 1700 ml Labs Labs Laboratory Tests Test 04/20/18 04:45 White Blood Count 8.8 x10^3/uL (4.0-11.0) Red Blood Count 4.05 x10^6/uL (4.30-5.70) Hemoglobin 12.6 g/dL (13.0-17.5) Hematocrit 38.0 % (39.0-53.0) Mean Corpuscular Volume 94 fL (79-100) Mean Corpuscular Hemoglobin 31 pg (25-35) Mean Corpuscular Hemoglobin Concent 33 g/dL (31-37) Red Cell Distribution Width 19.3 % (11.5-14.5) Platelet Count 129 x10^3/uL (140-400) Neutrophils (%) (Auto) 70 % (31-73) Lymphocytes (%) (Auto) 12 % (24-48) Monocytes (%) (Auto) 15 % (0-9) Eosinophils (%) (Auto) 3 % (0-3) Basophils (%) (Auto) 1 % (0-3) Neutrophils # (Auto) 6.1 x10^3uL (1.8-7.7) Lymphocytes # (Auto) 1.0 x10^3/uL (1.0-4.8) Monocytes # (Auto) 1.3 x10^3/uL (0.0-1.1) Eosinophils # (Auto) 0.2 x10^3/uL (0.0-0.7) Basophils # (Auto) 0.1 x10^3/uL (0.0-0.2) Sodium Level 140 mmol/L (136-145) Potassium Level 3.0 mmol/L (3.5-5.1) Chloride Level 97 mmol/L (98-107) Carbon Dioxide Level 31 mmol/L (21-32) Anion Gap 12 (6-14) Blood Urea Nitrogen 76 mg/dL (8-26) Creatinine 2.5 mg/dL (0.7-1.3) Estimated GFR (Cockcroft-Gault) 25.6 Glucose Level 85 mg/dL (70-99) Calcium Level 8.6 mg/dL (8.5-10.1) Magnesium Level 2.3 mg/dL (1.8-2.4) Review of Systems Constitutional: yes: alert, oriented Ears/Nose/Throat: Yes: no symptom reported Eyes: Yes: no symptom reported Pulmonary: Yes no symptom reported Cardiovascular: Yes no symptom reported Gastrointestional: Yes: no symptom reported Genitourinary: Yes: no symptom reported Musculoskeletal: Yes: no symptom reported Skin: Yes no symptom reported Psychiatric/Neurological: Yes: no symptom reported Endocrine: Yes: no symptom reported Physical Exam General Appearance: no apparent distress Respiratory: decreased breath sounds Heart: S1S2 Abdomen: soft, bowel sounds present Genitourinary: bladder flat Extremities: pulses present Neurology: alert Musculoskeletal: Osteoarthritis Assessment Assessment IMP MUNA-BETTER WITH CR DOWN TO 2.5-NO CKD MET ALKALOSIS-BETTER HYPOKALEMIA CM WITH EF OF 20% S/P SYNCOPE PLAN REPLACE K NEEDED CONT WITH LASIX AND ALDACTONE WILL NEED TO CONSIDER LATISHA-I/ARB ONCE MUNA BETTER CARDIOLOGY FOLLOWING GEOFF VO MD Apr 20, 2018 10:14
--- NOTE | 2018-04-20 10:40 | PDOC ---
PROGRESS NOTES Subjective Subjective Patient feeling better. He denied any chest pain. Continues to complain of edema. Objective Objective Vital Signs Date Time Temp Pulse Resp B/P (MAP) Pulse Ox O2 Delivery O2 Flow Rate FiO2 04/20/18 08:33 117 109/68 04/20/18 07:43 Nasal Cannula 2.5 04/20/18 07:35 97.6 20 94 97.6 Intake and Output 04/20/18 07:00 Intake Total 1940 ml Output Total 1700 ml Balance 240 ml Intake Oral 1740 ml IV Total 200 ml Output Urine Total 1700 ml Physical Exam Abdomen: Soft Heart: Regular rate Extremities: No clubbing, Other (2+ edema) General: Alert, Cooperative, No acute distress HEENT: Atraumatic, PERRLA Lungs: Other (bilateral basal crepitations) MUSCULOSKELETAL: No deformity, No swelling Neuro: Normal speech Psych/Mental Status: Mental status NL, Mood NL Skin: No breakdown, No significant lesion, Other (bilateral LE hyperpigmentation) Assessment Assessment 1. Acute on chronic diastolic/systolic CHF: LVEF 20% on 2-D echocardiogram. Continue milrinone infusion. Resume Lasix and Aldactone as recommended by nephrology team. 2. Chronic AFIB: intermittent RVR. Continue metoprolol. INR still elevated. Hold Xarelto. 3. Syncope: Multifactorial. Telemetry did not show any significant pauses. We will consider event monitor as an outpatient 4. MUNA on CKD: Nephrology team following. 5. CAD: past CABGx5, clinically stable, chest pain-free. 6. ICM with s/p AICD: [employer]. Device interrogation showed normal function. 7. Hyperlipidemia: Statins Plan Plan of Care Problems Medical Problems: (1) Hypokalemia Status: Acute Comment Review of Relevant I have reviewed the following items raj (where applicable) has been applied. Labs Laboratory Tests Test 04/20/18 04:45 White Blood Count 8.8 x10^3/uL (4.0-11.0) Red Blood Count 4.05 x10^6/uL (4.30-5.70) Hemoglobin 12.6 g/dL (13.0-17.5) Hematocrit 38.0 % (39.0-53.0) Mean Corpuscular Volume 94 fL (79-100) Mean Corpuscular Hemoglobin 31 pg (25-35) Mean Corpuscular Hemoglobin Concent 33 g/dL (31-37) Red Cell Distribution Width 19.3 % (11.5-14.5) Platelet Count 129 x10^3/uL (140-400) Neutrophils (%) (Auto) 70 % (31-73) Lymphocytes (%) (Auto) 12 % (24-48) Monocytes (%) (Auto) 15 % (0-9) Eosinophils (%) (Auto) 3 % (0-3) Basophils (%) (Auto) 1 % (0-3) Neutrophils # (Auto) 6.1 x10^3uL (1.8-7.7) Lymphocytes # (Auto) 1.0 x10^3/uL (1.0-4.8) Monocytes # (Auto) 1.3 x10^3/uL (0.0-1.1) Eosinophils # (Auto) 0.2 x10^3/uL (0.0-0.7) Basophils # (Auto) 0.1 x10^3/uL (0.0-0.2) Sodium Level 140 mmol/L (136-145) Potassium Level 3.0 mmol/L (3.5-5.1) Chloride Level 97 mmol/L (98-107) Carbon Dioxide Level 31 mmol/L (21-32) Anion Gap 12 (6-14) Blood Urea Nitrogen 76 mg/dL (8-26) Creatinine 2.5 mg/dL (0.7-1.3) Estimated GFR (Cockcroft-Gault) 25.6 Glucose Level 85 mg/dL (70-99) Calcium Level 8.6 mg/dL (8.5-10.1) Magnesium Level 2.3 mg/dL (1.8-2.4) Medications Current Medications Furosemide (Lasix) 40 mg 1X ONCE IVP Last administered on 04/19/18at 17:44; Start 04/19/18 at 17:45; Stop 04/19/18 at 17:46; Status DC Furosemide (Lasix) 40 mg BID92 PO Last administered on 04/20/18at 08:32; Start 04/19/18 at 17:30 Metoprolol Succinate (Toprol Xl) 25 mg DAILY PO Last administered on 04/20/18at 08:33; Start 04/19/18 at 11:00 Potassium Chloride (Klor-Con) 20 meq 1X ONCE PO Last administered on at 12:53; Start 04/19/18 at 12:15; Stop 04/19/18 at 12:16; Status DC Potassium Chloride (Klor-Con) 40 meq 1X ONCE PO Last administered on at 08:32; Start 04/20/18 at 08:30; Stop 04/20/18 at 08:31; Status DC Spironolactone (Aldactone) 25 mg DAILY PO Last administered on 04/20/18at 08:32 ; Start 04/20/18 at 09:00 Vitals/I & O Vital Sign - Last 24 Hours 04/19/18 04/19/18 04/19/18 04/19/18 10:49 11:49 14:40 19:30 Temp 98.0 98.5 97.6 98.0 98.5 97.6 Pulse 109 109 108 103 Resp 20 20 24 B/P (MAP) 94/73 (80) 94/73 95/63 (74) 107/68 (81) Pulse Ox 94 97 92 O2 Delivery Nasal Cannula Nasal Cannula Room Air O2 Flow Rate 3.0 3.0 04/19/18 04/19/18 04/20/18 04/20/18 20:00 23:18 03:50 07:35 Temp 98.9 97.9 97.6 98.9 97.9 97.6 Pulse 112 97 105 Resp 22 24 20 B/P (MAP) 106/75 (85) 111/69 (83) 104/75 (85) Pulse Ox 96 94 94 O2 Delivery Room Air Nasal Cannula Nasal Cannula Nasal Cannula O2 Flow Rate 3.0 3.0 3.0 04/20/18 04/20/18 04/20/18 07:43 08:31 08:33 Pulse 117 117 B/P (MAP) 109/68 (82) 109/68 O2 Delivery Nasal Cannula O2 Flow Rate 2.5 Intake and Output 04/19/18 04/19/18 04/20/18 15:00 23:00 07:00 Intake Total 340 ml 900 ml 700 ml Output Total 300 ml 200 ml 1200 ml Balance 40 ml 700 ml -500 ml IRIS BEST MD Apr 20, 2018 10:40
[2018-04-20] MEDS: SIMVASTATIN 10 MG TABLET PO SCH (20:40)
[2018-04-20] MEDS: TEMAZEPAM 7.5 MG CAPSULE PO PRN (20:40)
[2018-04-21 03:02] VITALS: BP 98/59
[2018-04-21 05:08] LABS: BASO # 0.1 x10^3/uL (0.0-0.2); BASO % 1 % (0-3); EOS # 0.3 x10^3/uL (0.0-0.7); EOS % 3 % (0-3); LYMPH # 1.1 x10^3/uL (1.0-4.8); LYMPH % 12 % (24-48); MEAN CORPUSCULAR HEMOGLOBIN 31 pg (25-35); MEAN CORPUSCULAR HGB CONC 33 g/dL (31-37); MEAN CORPUSCULAR VOLUME 94 fL (79-100); MONO # 1.3 x10^3/uL (0.0-1.1); MONO % 13 % (0-9); NEUT # 6.8 x10^3uL (1.8-7.7); NEUT % 71 % (31-73); PLATELET COUNT 148 x10^3/uL (140-400); RED BLOOD COUNT 4.15 x10^6/uL (4.30-5.70); RED CELL DISTRIBUTION WIDTH 19.3 % (11.5-14.5); WHITE BLOOD COUNT 9.6 x10^3/uL (4.0-11.0)
[2018-04-21 05:23] LABS: CALCIUM 8.8 mg/dL (8.5-10.1); CREATININE 2.2 mg/dL (0.7-1.3); GFR 29.7; MAGNESIUM 2.2 mg/dL (1.8-2.4); POTASSIUM 3.1 mmol/L (3.5-5.1)
[2018-04-21 07:00] VITALS: BP 97/67
[2018-04-21] MEDS: SENNOSIDES/DOCUSATE 8.6/50MG TABLET. PO SCH ×2 (09:00→21:00)
[2018-04-21] MEDS: FUROSEMIDE 40 MG TABLET. PO SCH ×2 (09:00→14:47)
[2018-04-21] MEDS ORDERED: POTASSIUM CHLORIDE 20 MEQ TABLET.ER. PO ONE ×2 (09:15→15:30)
--- NOTE | 2018-04-21 09:33 | RAD ---
PORTABLE CHEST 1V dated 04/21/2018 8:59 AM. Comparison: 04/18/2018 Clinical Indication: CHF. Findings: Single upright portable exam performed. Heart and mediastinal contours are stable. There is a dual lead right subclavian pacer in place, unchanged. Patient is status post median sternotomy. Patchy bilateral airspace disease with prominent interstitial markings, somewhat improved from prior exam. Bilateral pleural effusions, unchanged. No pneumothorax. Impression: 1. Mild improvement in bilateral airspace disease. 2. Persistent bilateral pleural effusions. Electronically signed by: Jose Burgess MD (04/21/2018 9:29 AM) [id number]
--- NOTE | 2018-04-21 10:45 | PDOC ---
SUBJECTIVE ROS Follow-up for Acute renal failure; questionable chronic kidney disease also Patient feels well this morning. No orthopnea, is much improved also. CVS: no Orthopnea, no CP RESP: no SOB, no ESQUIVEL GI: no Nausea, no Vomiting : no Dysuria, no Urgency OBJECTIVE Vital Signs Vital Signs Date Time Temp Pulse Resp B/P (MAP) Pulse Ox O2 Delivery O2 Flow Rate FiO2 04/21/18 09:28 Room Air 3.0 04/21/18 07:00 98.3 103 18 97/67 (77) 96 98.3 I & 0 Intake and Output 04/21/18 07:00 Intake Total 944 ml Output Total 2155 ml Balance -1211 ml Intake Oral 900 ml IV Total 44 ml Output Urine Total 2155 ml PHYSICAL EXAM Physical Exam GEN: Awake, Oriented x 3, In no distress EYES: Vision Unchanged, Conjunctiva Normal EN: No EN Drainage, Mucous Membranes moist NECK: + JVD, + JVP, Supple, no Thyromegaly CVS: S1S2, + Murmur, No Gallop, No Rub,+ Edema RESP: no Rales, no Rhonchi,no Acc. Muscle Use GI: BS + ve, NO Bruit, Non Tender, Non Distended : no CVA tenderness, no Suprapubic Tenderness DIAGNOSIS/ASSESSMENT Assessment & Plan Acute on chronic renal insufficiency: This is in the setting of acute exacerbation of chronic CHF. Current fluid and E-lyte status does not necessitate emergent need for dialysis. Creatinine appears to be stable and close to baseline Small chronic kidney disease: Patient instructed to follow up with photographer scientific as an outpatient especially with changing doses of diuretics Acute exacerbation of chronic CHF: As discussed with Dr. Cooney and patient: Hold off of LATISHA inhibitor's/ARB's for the time being until patient can be monitored closely by his medical clerical assistant and/or a photographer scientific as outpatient Hypotension: Patient asymptomatic: He remains somewhat tachycardic currently also. Defer management of this to cardiology Edema: Diuresis as needed to optimize fluid status. Respiratory status appears to be good and compensated currently. Anasarca has also improved significantly. Offered patient renal sonogram but he declined COMMENT/RELEVANT DATA Meds Current Medications Medications (Trade) Dose Ordered Sig/Roxanne Start Time Stop Time Status Last Admin Dose Admin Acetaminophen (Tylenol) 650 mg PRN Q6HRS PRN 04/17/18 21:45 Carvedilol (Coreg) 25 mg BIDWMEALS 04/18/18 08:00 04/18/18 11:50 DC 04/18/18 10:08 25 MG Furosemide (Lasix) 40 mg BID92 04/19/18 17:30 04/20/18 14:25 40 MG Heparin Sodium (Porcine) (Heparin Sodium) 5,000 unit Q12HR 04/18/18 09:00 04/18/18 09:09 DC Metoprolol Succinate (Toprol Xl) 25 mg DAILY 04/19/18 11:00 04/20/18 08:33 25 MG Metoprolol Tartrate (Lopressor) 25 mg BID 04/18/18 12:00 04/19/18 10:18 DC 04/18/18 20:23 25 MG Milrinone Lactate/ Dextrose 100 ml @ 2.738 mls/ hr CONT PRN 04/18/18 17:15 04/19/18 11:50 2.738 MLS/HR Morphine Sulfate (Morphine Sulfate) 2 mg PRN Q1HR PRN 04/17/18 21:45 Non-Formulary Medication (Potassium Gluconate ) 99 mg DAILY 04/18/18 09:00 UNV Ondansetron HCl (Zofran) 4 mg PRN Q6HRS PRN 04/17/18 21:45 Potassium Chloride (Klor-Con) 40 meq 1X ONCE 04/21/18 09:15 04/21/18 09:20 DC Rivaroxaban (Xarelto) 15 mg QHS 04/18/18 21:00 04/18/18 21:00 DC Senna/Docusate Sodium (Senna Plus) 1 tab BID 04/18/18 09:00 04/19/18 21:10 1 TAB Simvastatin (Zocor) 5 mg HS 04/18/18 21:00 04/20/18 20:40 5 MG Sodium Chloride (Normal Saline Flush) 3 ml PRN DAILY PRN 04/17/18 21:45 Spironolactone (Aldactone) 25 mg DAILY 04/20/18 09:00 04/20/18 08:32 25 MG Temazepam (Restoril) 7.5 mg PRN QHS PRN 04/17/18 22:00 04/20/18 20:40 7.5 MG Lab Laboratory Tests Test 04/21/18 04:10 White Blood Count 9.6 x10^3/uL (4.0-11.0) Red Blood Count 4.15 x10^6/uL (4.30-5.70) Hemoglobin 13.0 g/dL (13.0-17.5) Hematocrit 39.0 % (39.0-53.0) Mean Corpuscular Volume 94 fL (79-100) Mean Corpuscular Hemoglobin 31 pg (25-35) Mean Corpuscular Hemoglobin Concent 33 g/dL (31-37) Red Cell Distribution Width 19.3 % (11.5-14.5) Platelet Count 148 x10^3/uL (140-400) Neutrophils (%) (Auto) 71 % (31-73) Lymphocytes (%) (Auto) 12 % (24-48) Monocytes (%) (Auto) 13 % (0-9) Eosinophils (%) (Auto) 3 % (0-3) Basophils (%) (Auto) 1 % (0-3) Neutrophils # (Auto) 6.8 x10^3uL (1.8-7.7) Lymphocytes # (Auto) 1.1 x10^3/uL (1.0-4.8) Monocytes # (Auto) 1.3 x10^3/uL (0.0-1.1) Eosinophils # (Auto) 0.3 x10^3/uL (0.0-0.7) Basophils # (Auto) 0.1 x10^3/uL (0.0-0.2) Sodium Level 140 mmol/L (136-145) Potassium Level 3.1 mmol/L (3.5-5.1) Chloride Level 98 mmol/L (98-107) Carbon Dioxide Level 31 mmol/L (21-32) Anion Gap 11 (6-14) Blood Urea Nitrogen 66 mg/dL (8-26) Creatinine 2.2 mg/dL (0.7-1.3) Estimated GFR (Cockcroft-Gault) 29.7 Glucose Level 89 mg/dL (70-99) Calcium Level 8.8 mg/dL (8.5-10.1) Magnesium Level 2.2 mg/dL (1.8-2.4) Results All relevant outside records, renal labs, imaging studies, telemetry/EKG's were reviewed. Other Clinical Indication: CHF. Findings: Single upright portable exam performed. Heart and mediastinal contours are stable. There is a dual lead right subclavian pacer in place, unchanged. Patient is status post median sternotomy. Patchy bilateral airspace disease with prominent interstitial markings, somewhat improved from prior exam. Bilateral pleural effusions, unchanged. No pneumothorax. Impression: 1. Mild improvement in bilateral airspace disease. 2. Persistent bilateral pleural effusions. CAROLIN GARCIA MD Apr 21, 2018 10:45
[2018-04-21 10:59] VITALS: BP 82/81
[2018-04-21 12:31] LABS: PROTHROMBIN TIME PATIENT 17.6 SEC (11.7-14.0)
[2018-04-21] MEDS: SPIRONOLACTONE 25 MG TABLET PO SCH (12:32)
[2018-04-21] MEDS: METOPROLOL SUCC 24HR ER 25 MG TAB.ER.24H. PO SCH (12:34)
[2018-04-21] MEDS: BENZONATATE 100 MG CAPSULE. PO SCH ×2 (14:47→21:21)
--- NOTE | 2018-04-21 15:11 | PDOC ---
PROGRESS NOTES Chief Complaint Chief Complaint Syncope and collapse , dehydration, vasovagal possibly Acute renal failure, possilble 2/2 CHF, vasomotor Hypokalemia H/o CAD H/o CHF systolic Chronic hypoxic respiratory failure Chronic reduced ejection fraction CHF with AICD (20% EF) rapid afib on xarelto CKD3? PPM hypokalemia plan: fu with card, on metoprolol hold tachycardia and low bp better when off milrinone drip, may need increase Metoprolol or add dig xarelto held given high INR, repeated INR today 1.5, need AC, but Crcl low, asked nurse to double check with card, may add eliquis on lasix 40mg po bid, aldactone, BMP daily pt wants to go home, doubt today replete K History of Present Illness History of Present Illness Pt seen and examined. Feels more short of breath today, fatigued and swollen in his feet. Renal function improved today. K was 3 DW RN and cardiology and nephrology Cr better, but still 2.2 tachycardia with afib at 110-130s, BP lower side to 80s- 100s on milrinone drip Vitals Vitals Vital Signs Date Time Temp Pulse Resp B/P (MAP) Pulse Ox O2 Delivery O2 Flow Rate FiO2 04/21/18 12:34 116 102/71 04/21/18 10:59 98.2 18 91 Nasal Cannula 98.2 04/21/18 09:28 3.0 Physical Exam General: Alert, Cooperative, No acute distress Heart: Other (irregular) Abdomen: Soft Extremities: No clubbing, Other (2+ edema) Skin: No breakdown, No significant lesion, Other (bilateral LE hyperpigmentation) Labs LABS Laboratory Tests Test 04/21/18 04:10 04/21/18 12:10 White Blood Count 9.6 x10^3/uL (4.0-11.0) Red Blood Count 4.15 x10^6/uL (4.30-5.70) Hemoglobin 13.0 g/dL (13.0-17.5) Hematocrit 39.0 % (39.0-53.0) Mean Corpuscular Volume 94 fL (79-100) Mean Corpuscular Hemoglobin 31 pg (25-35) Mean Corpuscular Hemoglobin Concent 33 g/dL (31-37) Red Cell Distribution Width 19.3 % (11.5-14.5) Platelet Count 148 x10^3/uL (140-400) Neutrophils (%) (Auto) 71 % (31-73) Lymphocytes (%) (Auto) 12 % (24-48) Monocytes (%) (Auto) 13 % (0-9) Eosinophils (%) (Auto) 3 % (0-3) Basophils (%) (Auto) 1 % (0-3) Neutrophils # (Auto) 6.8 x10^3uL (1.8-7.7) Lymphocytes # (Auto) 1.1 x10^3/uL (1.0-4.8) Monocytes # (Auto) 1.3 x10^3/uL (0.0-1.1) Eosinophils # (Auto) 0.3 x10^3/uL (0.0-0.7) Basophils # (Auto) 0.1 x10^3/uL (0.0-0.2) Sodium Level 140 mmol/L (136-145) Potassium Level 3.1 mmol/L (3.5-5.1) Chloride Level 98 mmol/L (98-107) Carbon Dioxide Level 31 mmol/L (21-32) Anion Gap 11 (6-14) Blood Urea Nitrogen 66 mg/dL (8-26) Creatinine 2.2 mg/dL (0.7-1.3) Estimated GFR (Cockcroft-Gault) 29.7 Glucose Level 89 mg/dL (70-99) Calcium Level 8.8 mg/dL (8.5-10.1) Magnesium Level 2.2 mg/dL (1.8-2.4) Prothrombin Time 17.6 SEC (11.7-14.0) Prothromb Time International Ratio 1.5 (0.8-1.1) Assessment and Plan Assessmemt and Plan Problems Medical Problems: (1) Hypokalemia Status: Acute Comment Review of Relevant I have reviewed the following items raj (where applicable) has been applied. Labs Laboratory Tests Test 04/20/18 04:45 04/21/18 04:10 04/21/18 12:10 White Blood Count 8.8 x10^3/uL (4.0-11.0) 9.6 x10^3/uL (4.0-11.0) Red Blood Count 4.05 x10^6/uL (4.30-5.70) 4.15 x10^6/uL (4.30-5.70) Hemoglobin 12.6 g/dL (13.0-17.5) 13.0 g/dL (13.0-17.5) Hematocrit 38.0 % (39.0-53.0) 39.0 % (39.0-53.0) Mean Corpuscular Volume 94 fL (79-100) 94 fL (79-100) Mean Corpuscular Hemoglobin 31 pg (25-35) 31 pg (25-35) Mean Corpuscular Hemoglobin Concent 33 g/dL (31-37) 33 g/dL (31-37) Red Cell Distribution Width 19.3 % (11.5-14.5) 19.3 % (11.5-14.5) Platelet Count 129 x10^3/uL (140-400) 148 x10^3/uL (140-400) Neutrophils (%) (Auto) 70 % (31-73) 71 % (31-73) Lymphocytes (%) (Auto) 12 % (24-48) 12 % (24-48) Monocytes (%) (Auto) 15 % (0-9) 13 % (0-9) Eosinophils (%) (Auto) 3 % (0-3) 3 % (0-3) Basophils (%) (Auto) 1 % (0-3) 1 % (0-3) Neutrophils # (Auto) 6.1 x10^3uL (1.8-7.7) 6.8 x10^3uL (1.8-7.7) Lymphocytes # (Auto) 1.0 x10^3/uL (1.0-4.8) 1.1 x10^3/uL (1.0-4.8) Monocytes # (Auto) 1.3 x10^3/uL (0.0-1.1) 1.3 x10^3/uL (0.0-1.1) Eosinophils # (Auto) 0.2 x10^3/uL (0.0-0.7) 0.3 x10^3/uL (0.0-0.7) Basophils # (Auto) 0.1 x10^3/uL (0.0-0.2) 0.1 x10^3/uL (0.0-0.2) Sodium Level 140 mmol/L (136-145) 140 mmol/L (136-145) Potassium Level 3.0 mmol/L (3.5-5.1) 3.1 mmol/L (3.5-5.1) Chloride Level 97 mmol/L (98-107) 98 mmol/L (98-107) Carbon Dioxide Level 31 mmol/L (21-32) 31 mmol/L (21-32) Anion Gap 12 (6-14) 11 (6-14) Blood Urea Nitrogen 76 mg/dL (8-26) 66 mg/dL (8-26) Creatinine 2.5 mg/dL (0.7-1.3) 2.2 mg/dL (0.7-1.3) Estimated GFR (Cockcroft-Gault) 25.6 29.7 Glucose Level 85 mg/dL (70-99) 89 mg/dL (70-99) Calcium Level 8.6 mg/dL (8.5-10.1) 8.8 mg/dL (8.5-10.1) Magnesium Level 2.3 mg/dL (1.8-2.4) 2.2 mg/dL (1.8-2.4) Prothrombin Time 17.6 SEC (11.7-14.0) Prothromb Time International Ratio 1.5 (0.8-1.1) Laboratory Tests Test 04/21/18 04:10 04/21/18 12:10 White Blood Count 9.6 x10^3/uL (4.0-11.0) Red Blood Count 4.15 x10^6/uL (4.30-5.70) Hemoglobin 13.0 g/dL (13.0-17.5) Hematocrit 39.0 % (39.0-53.0) Mean Corpuscular Volume 94 fL (79-100) Mean Corpuscular Hemoglobin 31 pg (25-35) Mean Corpuscular Hemoglobin Concent 33 g/dL (31-37) Red Cell Distribution Width 19.3 % (11.5-14.5) Platelet Count 148 x10^3/uL (140-400) Neutrophils (%) (Auto) 71 % (31-73) Lymphocytes (%) (Auto) 12 % (24-48) Monocytes (%) (Auto) 13 % (0-9) Eosinophils (%) (Auto) 3 % (0-3) Basophils (%) (Auto) 1 % (0-3) Neutrophils # (Auto) 6.8 x10^3uL (1.8-7.7) Lymphocytes # (Auto) 1.1 x10^3/uL (1.0-4.8) Monocytes # (Auto) 1.3 x10^3/uL (0.0-1.1) Eosinophils # (Auto) 0.3 x10^3/uL (0.0-0.7) Basophils # (Auto) 0.1 x10^3/uL (0.0-0.2) Sodium Level 140 mmol/L (136-145) Potassium Level 3.1 mmol/L (3.5-5.1) Chloride Level 98 mmol/L (98-107) Carbon Dioxide Level 31 mmol/L (21-32) Anion Gap 11 (6-14) Blood Urea Nitrogen 66 mg/dL (8-26) Creatinine 2.2 mg/dL (0.7-1.3) Estimated GFR (Cockcroft-Gault) 29.7 Glucose Level 89 mg/dL (70-99) Calcium Level 8.8 mg/dL (8.5-10.1) Magnesium Level 2.2 mg/dL (1.8-2.4) Prothrombin Time 17.6 SEC (11.7-14.0) Prothromb Time International Ratio 1.5 (0.8-1.1) Medications Current Medications Potassium Chloride (Klor-Con) 40 meq 1X ONCE PO Last administered on at 13:48; Start 04/17/18 at 13:30; Stop 04/17/18 at 13:31; Status DC Sodium Chloride (Normal Saline Flush) 3 ml PRN DAILY PRN IV AFTER MEDS AND BLOOD DRAWS; Start 04/17/18 at 21:45 Ondansetron HCl (Zofran) 4 mg PRN Q6HRS PRN IV NAUSEA/VOMITING; Start 04/17/18 at 21:45 Morphine Sulfate (Morphine Sulfate) 2 mg PRN Q1HR PRN IV PAIN; Start 04/17/18 at 21:45 Acetaminophen (Tylenol) 650 mg PRN Q6HRS PRN PO Headaches, Temp > 101.5F; Start 04/17/18 at 21:45 Senna/Docusate Sodium (Senna Plus) 1 tab BID PO Last administered on 04/19/18at 21:10; Start 04/18/18 at 09:00 Heparin Sodium (Porcine) (Heparin Sodium) 5,000 unit Q12HR SQ ; Start 04/18/18 at 09:00; Stop 04/18/18 at 09:09; Status DC Temazepam (Restoril) 7.5 mg PRN QHS PRN PO INSOMNIA Last administered on at 20:40; Start 04/17/18 at 22:00 Rivaroxaban (Xarelto) 10 mg DAILY PO ; Start 04/18/18 at 09:00; Stop 04/18/18 at 10:44; Status DC Simvastatin (Zocor) 5 mg HS PO Last administered on 04/20/18at 20:40; Start 04/18/18 at 21:00 Carvedilol (Coreg) 25 mg BIDWMEALS PO Last administered on 04/18/18at 10:08; Start 04/18/18 at 08:00; Stop 04/18/18 at 11:50; Status DC Non-Formulary Medication (Potassium Gluconate ) 99 mg DAILY PO ; Start 04/18/18 at 09:00; Status UNV Potassium Chloride (Klor-Con) 40 meq 1X ONCE PO Last administered on at 10:07; Start 04/18/18 at 09:45; Stop 04/18/18 at 09:46; Status DC Potassium Chloride (Klor-Con) 40 meq 1X ONCE PO Last administered on at 13:30; Start 04/18/18 at 14:00; Stop 04/18/18 at 14:01; Status DC Potassium Chloride (Klor-Con) 40 meq 1X ONCE PO ; Start 04/18/18 at 14:00; Stop 04/18/18 at 14:01; Status Cancel Rivaroxaban (Xarelto) 10 mg HS PO ; Start 04/18/18 at 21:00; Stop 04/18/18 at 21 :00; Status DC Rivaroxaban (Xarelto) 15 mg QHS PO ; Start 04/18/18 at 21:00; Stop 04/18/18 at 21:00; Status DC Metoprolol Tartrate (Lopressor) 25 mg BID PO Last administered on 04/18/18at 20: 23; Start 04/18/18 at 12:00; Stop 04/19/18 at 10:18; Status DC Furosemide (Lasix) 40 mg 1X ONCE IVP Last administered on 04/18/18at 15:02; Start 04/18/18 at 13:30; Stop 04/18/18 at 13:33; Status DC Milrinone Lactate/ Dextrose 100 ml @ 2.738 mls/ hr CONT PRN IV SEE I/O RECORD Last administered on 04/19/18at 11:50; Start 04/18/18 at 17:15 Metoprolol Succinate (Toprol Xl) 25 mg DAILY PO Last administered on 04/21/18at 12:34; Start 04/19/18 at 11:00 Potassium Chloride (Klor-Con) 20 meq 1X ONCE PO Last administered on at 12:53; Start 04/19/18 at 12:15; Stop 04/19/18 at 12:16; Status DC Spironolactone (Aldactone) 25 mg DAILY PO Last administered on 04/21/18at 12:32 ; Start 04/20/18 at 09:00 Furosemide (Lasix) 40 mg 1X ONCE IVP Last administered on 04/19/18at 17:44; Start 04/19/18 at 17:45; Stop 04/19/18 at 17:46; Status DC Furosemide (Lasix) 40 mg [id number] PO Last administered on 04/21/18at 14:47; Start 04/19/18 at 17:30 Potassium Chloride (Klor-Con) 40 meq 1X ONCE PO Last administered on at 08:32; Start 04/20/18 at 08:30; Stop 04/20/18 at 08:31; Status DC Potassium Chloride (Klor-Con) 40 meq 1X ONCE PO Last administered on at 12:36; Start 04/21/18 at 09:15; Stop 04/21/18 at 09:20; Status DC Benzonatate (Tessalon Perle) 100 mg [id number] PO Last administered on 04/21/18at 14 :47; Start 04/21/18 at 14:00 Active Scripts Active Reported Xarelto (Rivaroxaban) 15 Mg Tablet 15 Mg PO DAILYWSUP Fluticasone Propionate Nasal Jenkinjones (Fluticasone Propionate) 16 Gm Jenkinjones.susp 2 Jenkinjones NS DAILY Potassium Gluconate 99 Mg Tablet 99 Mg PO DAILY Biotin 2,500 Mcg Capsule 5,000 Mcg PO DAILY Cinnamon (Cinnamon Bark) 500 Mg Capsule 1,000 Mg PO DAILY Apple Cider Vinegar (Cider Vinegar) 600 Mg Capsule 600 Mg PO BID Turmeric Complex 500 mg Cap (Turmeric/Turmeric Ext/Pepr Ext) 1 Each Capsule 1 Each PO DAILY L-Arginine (Arginine Hcl) 1,000 Mg Tablet 1,000 Mg PO DAILY Acidophilus Lactobacillus (Lactobacillus Acidophilus) 1 Each Capsule 1 Each PO DAILY Garlic 1,000 Mg Capsule 1,000 Mg PO DAILYWBKFT Furosemide 80 Mg Tablet 1 Tab PO DAILY Coconut Oil 1,000 Mg Capsule 1,000 Mg PO BID Centrum Silver Men Tablet (Multivit-Min/FA/Lycopen/Lutein) 1 Each Tablet 1 Each PO DAILY Coq-10 (Ubidecarenone) 100 Mg Capsule 100 Mg PO DAILY Flax Oil (Flaxseed Oil) 1,000 Mg Capsule 1,000 Mg PO TIDBFRMEAL Fish Oil 1,000 mg Softgel (Nickerson-3S/Dha/Epa/Fish Oil) 1 Each Capsule 1 Each PO TIDBFRMEAL Azelastine Hcl 137 Mcg/0.137 Ml Jenkinjones.pump 2 Jenkinjones NS BID Carvedilol 25 Mg Tablet 1 Tab PO BID Simvastatin 10 Mg Tablet 5 Mg PO HS Metolazone 10 Mg Tablet 10 Mg PO DAILY Milk Thistle 175 Mg Tablet 175 Mg PO DAILY Vitals/I & O Vital Sign - Last 24 Hours 04/20/18 04/20/18 04/20/18 04/20/18 19:00 20:00 20:45 23:00 Temp 97.6 98.5 97.6 98.5 Pulse 109 99 88 Resp 20 20 B/P (MAP) 87/66 (73) 103/63 (76) 79/55 (63) Pulse Ox 92 88 O2 Delivery Room Air Room Air Room Air 04/20/18 04/21/18 04/21/18 04/21/18 23:09 03:02 07:00 08:00 Temp 98.2 98.3 98.2 98.3 Pulse 106 103 Resp 18 18 B/P (MAP) 98/59 (72) 97/67 (77) Pulse Ox 97 95 96 O2 Delivery Nasal Cannula Nasal Cannula Nasal Cannula Room Air O2 Flow Rate 3.0 3.0 3.0 04/21/18 04/21/18 04/21/18 09:28 10:59 12:34 Temp 98.2 98.2 Pulse 121 116 Resp 18 B/P (MAP) 82/81 (81) 102/71 Pulse Ox 91 O2 Delivery Room Air Nasal Cannula O2 Flow Rate 3.0 Intake and Output 04/20/18 04/20/18 04/21/18 15:00 23:00 07:00 Intake Total 600 ml 328 ml 16 ml Output Total 700 ml 905 ml 550 ml Balance -100 ml -577 ml -534 ml POLLY OSEI MD Apr 21, 2018 15:11
[2018-04-21 15:12] VITALS: BP 111/72
--- NOTE | 2018-04-21 15:29 | PDOC ---
CARDIO Progress Notes Date and Time Date of Service 04/21/2018 Time of Evaluation 1510 Subjective Subjective: No Chest Pain, No shortness of breath, No Palpitations Vitals Vitals Vital Signs Date Time Temp Pulse Resp B/P (MAP) Pulse Ox O2 Delivery O2 Flow Rate FiO2 04/21/18 12:34 116 102/71 04/21/18 10:59 98.2 18 91 Nasal Cannula 98.2 04/21/18 09:28 3.0 Weight Weight [ ] Input and Output Intake and Output Intake and Output 04/21/18 07:00 Intake Total 944 ml Output Total 2155 ml Balance -1211 ml Intake Oral 900 ml IV Total 44 ml Output Urine Total 2155 ml Laboratory Labs Laboratory Tests Test 04/21/18 04:10 04/21/18 12:10 White Blood Count 9.6 x10^3/uL (4.0-11.0) Red Blood Count 4.15 x10^6/uL (4.30-5.70) Hemoglobin 13.0 g/dL (13.0-17.5) Hematocrit 39.0 % (39.0-53.0) Mean Corpuscular Volume 94 fL (79-100) Mean Corpuscular Hemoglobin 31 pg (25-35) Mean Corpuscular Hemoglobin Concent 33 g/dL (31-37) Red Cell Distribution Width 19.3 % (11.5-14.5) Platelet Count 148 x10^3/uL (140-400) Neutrophils (%) (Auto) 71 % (31-73) Lymphocytes (%) (Auto) 12 % (24-48) Monocytes (%) (Auto) 13 % (0-9) Eosinophils (%) (Auto) 3 % (0-3) Basophils (%) (Auto) 1 % (0-3) Neutrophils # (Auto) 6.8 x10^3uL (1.8-7.7) Lymphocytes # (Auto) 1.1 x10^3/uL (1.0-4.8) Monocytes # (Auto) 1.3 x10^3/uL (0.0-1.1) Eosinophils # (Auto) 0.3 x10^3/uL (0.0-0.7) Basophils # (Auto) 0.1 x10^3/uL (0.0-0.2) Sodium Level 140 mmol/L (136-145) Potassium Level 3.1 mmol/L (3.5-5.1) Chloride Level 98 mmol/L (98-107) Carbon Dioxide Level 31 mmol/L (21-32) Anion Gap 11 (6-14) Blood Urea Nitrogen 66 mg/dL (8-26) Creatinine 2.2 mg/dL (0.7-1.3) Estimated GFR (Cockcroft-Gault) 29.7 Glucose Level 89 mg/dL (70-99) Calcium Level 8.8 mg/dL (8.5-10.1) Magnesium Level 2.2 mg/dL (1.8-2.4) Prothrombin Time 17.6 SEC (11.7-14.0) Prothromb Time International Ratio 1.5 (0.8-1.1) Review of Systems Constitutional: yes: alert, oriented Ears/Nose/Throat: Yes: no symptom reported Eyes: Yes: no symptom reported Pulmonary: Yes no symptom reported Cardiovascular: Yes no symptom reported Gastrointestional: Yes: no symptom reported Genitourinary: Yes: no symptom reported Musculoskeletal: Yes: no symptom reported Skin: Yes no symptom reported Psychiatric/Neurological: Yes: no symptom reported Endocrine: Yes: no symptom reported Physical Exam HEENT: Neck Supple W Full Motion Chest: Symmetric LUNGS: Other (basilar crackles) Heart: S1S2, murmurs (2/6 CECILY), irregularly irregular (AFIB ) Abdomen: Soft N/T Extremities: No Calf Tenderness, Other (3+ bilateral LE pitting edema) Neurology: alert, oriented, follow commands Assessment Assessment 1. Syncope: Brief. multifactorial with likely inadequate hydration with lasix use and AFIB RVR with vasovagal component 2. Chronic AFIB: presently with RVR 110-120 3. Acute on chronic diastolic/systolic CHF: appears compensated. EF 20% 4. MUNA on CKD: Cr better at 2.2. unclear baseline. Nephrology following 5. CAD: past CABGx5, clinically stable. 6. ICM with s/p AICD: Med[employer], recent interrogation revealed normal function with no ventricular arrhythmias. 7. Valvular insufficiency: prior mod MR/mod-severe TR now mod MR and mild TR 8. HTN: low end BP 9. HLP 10. Polyherbal meds 11. Initial coagulopathy: likely from hepatic congestion. INR was 3.4 and better at 1.5 Recommendations 1. Negative for orthostasis. Continue lasix therapy. Will titrate off milrinone. Outpt nephrology f/u 2. Continue with toprol and will titrate up if BP allows. Dig IV x1. 3. Discussed discontinuation of herbal meds. Stop xarelto with his low CrCl. Start on eliquis for stroke prevention. 4. Follow up with his primary pony ride attendant as soon as he gets back to [place]. 2L FR , daily wt. 5. Pt to go home to [place] in about a week and staying with friends here. He will drive home eventuially and encouraged frequent stops. Discouraged hunting especially with cold temps. DOMO OMALLEY [employer] Apr 21, 2018 15:29
[2018-04-21] MEDS ORDERED: DIGOXIN IV 500 MCG/2 ML AMPUL. IV ONE (15:45)
[2018-04-21] MEDS ORDERED: METOPROLOL SUCC 24HR ER 25 MG TAB.ER.24H. PO ONE (16:00)
[2018-04-21] MEDS: APIXABAN 5 MG TABLET. PO SCH ×2 (16:01→23:07)
--- NOTE | 2018-04-21 16:25 | PDOC ---
PROGRESS NOTES Assessment Assessment IMPRESSION: Syncope. AFib. CAD. CHF, EF 20%. HTN. Pneumonia, atypical mycobacterial ? Urinary incontinence. Pacemaker in site. RECOMMENDATIONS/PLAN: Continue medical treatment. Continue cardiac treatment. OT/PT. FU with PCP. Past Medical History Cardiovascular: CAD (CABG x5), CHF, HTN Pulmonary: Pneumonia (Atypical mycobacterial PNA) GI: No pertinent hx Heme/Onc: No pertinent hx Hepatobiliary: No pertinent hx Psych: No pertinent hx Infectious disease: Other (Atypical pneumonia) ENT: Allergic Rhinitis Renal/: No pertinent hx Endocrine: No pertinent hx Dermatology: No pertinent hx Past Surgical History Pacemaker (AICD), CABG Family History Chronic Bronchitis, Coronary Artery Disease Social History Smoke: No ALCOHOL: none Drugs: None ALLERGY: NKDA MEDICATIONS: Refer to MAR REVIEW OF SYSTEMS: Constitutional: No malnutrition, weight loss, cachexia. Head: No traumatic brain or head injury. Skin: No edema, or rash. Ear: No infection. Eyes: No vision loss, or diplopia. Nose: No bleeding or purulent discharges. Hearing: Hearing loss. Neck: No injury. Cardiac: CAD, CHF, Pacemaker Placement, HTN. Pulmonary: No pneumonia, CPOD. GI: No GI Ulcer, GI bleeding Urinary/genital: incontinence. Endocrine: No cousin face, craniofacial dysmorphism, polydactyly. Skeletomuscular: generalized weakness. Neurological: see HP. Psychiatric: Denies drug use/abuse. Otherwise, not [id number] review of systems. PHYSICAL EXAMINATION: General appearance in no acute distress. HEENT: Normocephalic and nontraumatic. Eyes, nose, ears, and throat are unremarkable. Hearing decrease. Neck is supple. No lymphadenopathy. No bruits are heard over the carotid artery. No Crepitus. Cardiovascular: S1, S2, regular rate and rhythm. Pulmonary: decreased to auscultation bilaterally. Abdomen: Bowel sounds are positive. Extremities: No rash, lesions, or edema. No restriction of range of motion NEUROLOGICAL EXAMINATION: Awake. Oriented to time, place and person, but reactions were slow. PERRL. EOMI. CN: no focal findings. Muscle tone: within normal. Muscle strength: 4 DTR: 1-2 Plantar reflex: Neutral response bilaterally Gait: not examined in bed. Sensory exam: no abnormal findings. No cerebellar signs elicited. F-T-N test fine. Objective Objective Vital Signs Date Time Temp Pulse Resp B/P (MAP) Pulse Ox O2 Delivery O2 Flow Rate FiO2 04/21/18 16:02 113 111/72 04/21/18 15:12 98.0 18 97 Nasal Cannula 98.0 04/21/18 09:28 3.0 Intake and Output 04/21/18 07:00 Intake Total 944 ml Output Total 2155 ml Balance -1211 ml Intake Oral 900 ml IV Total 44 ml Output Urine Total 2155 ml Vitals Signs Vitals VS - Last 72 Hours, by Label Date Time Temp Pulse Resp B/P (MAP) Pulse Ox O2 Delivery O2 Flow Rate FiO2 04/21/18 16:02 113 111/72 04/21/18 16:02 113 111/72 04/21/18 15:12 98.0 113 18 111/72 (85) 97 Nasal Cannula 98.0 04/21/18 12:34 116 102/71 04/21/18 10:59 98.2 121 18 82/81 (81) 91 Nasal Cannula 98.2 04/21/18 09:28 Room Air 3.0 04/21/18 08:00 Room Air 04/21/18 07:00 98.3 103 18 97/67 (77) 96 Nasal Cannula 3.0 98.3 04/21/18 03:02 98.2 106 18 98/59 (72) 95 Nasal Cannula 3.0 98.2 04/20/18 23:09 97 Nasal Cannula 3.0 04/20/18 23:00 98.5 88 20 79/55 (63) 88 Room Air 98.5 04/20/18 20:45 99 103/63 (76) 04/20/18 20:00 Room Air 04/20/18 19:00 97.6 109 20 87/66 (73) 92 Room Air 97.6 04/20/18 14:24 98.4 93 20 103/71 (82) 93 Room Air 98.4 04/20/18 11:00 97.6 100 22 112/66 (81) 93 Nasal Cannula 3.0 97.6 04/20/18 08:33 117 109/68 04/20/18 08:31 117 109/68 (82) 04/20/18 07:43 Nasal Cannula 2.5 04/20/18 07:35 97.6 105 20 104/75 (85) 94 Nasal Cannula 3.0 97.6 Laboratory Laboratory Laboratory Tests Test 04/21/18 04:10 04/21/18 12:10 White Blood Count 9.6 x10^3/uL (4.0-11.0) Red Blood Count 4.15 x10^6/uL (4.30-5.70) Hemoglobin 13.0 g/dL (13.0-17.5) Hematocrit 39.0 % (39.0-53.0) Mean Corpuscular Volume 94 fL (79-100) Mean Corpuscular Hemoglobin 31 pg (25-35) Mean Corpuscular Hemoglobin Concent 33 g/dL (31-37) Red Cell Distribution Width 19.3 % (11.5-14.5) Platelet Count 148 x10^3/uL (140-400) Neutrophils (%) (Auto) 71 % (31-73) Lymphocytes (%) (Auto) 12 % (24-48) Monocytes (%) (Auto) 13 % (0-9) Eosinophils (%) (Auto) 3 % (0-3) Basophils (%) (Auto) 1 % (0-3) Neutrophils # (Auto) 6.8 x10^3uL (1.8-7.7) Lymphocytes # (Auto) 1.1 x10^3/uL (1.0-4.8) Monocytes # (Auto) 1.3 x10^3/uL (0.0-1.1) Eosinophils # (Auto) 0.3 x10^3/uL (0.0-0.7) Basophils # (Auto) 0.1 x10^3/uL (0.0-0.2) Sodium Level 140 mmol/L (136-145) Potassium Level 3.1 mmol/L (3.5-5.1) Chloride Level 98 mmol/L (98-107) Carbon Dioxide Level 31 mmol/L (21-32) Anion Gap 11 (6-14) Blood Urea Nitrogen 66 mg/dL (8-26) Creatinine 2.2 mg/dL (0.7-1.3) Estimated GFR (Cockcroft-Gault) 29.7 Glucose Level 89 mg/dL (70-99) Calcium Level 8.8 mg/dL (8.5-10.1) Magnesium Level 2.2 mg/dL (1.8-2.4) Prothrombin Time 17.6 SEC (11.7-14.0) Prothromb Time International Ratio 1.5 (0.8-1.1) Medication Medications Current Medications Apixaban (Eliquis) 5 mg BID PO Last administered on 04/21/18at 16:01; Start 04/21/18 at 15:30 Benzonatate (Tessalon Perle) 100 mg [id number] PO Last administered on 04/21/18at 14 :47; Start 04/21/18 at 14:00 Digoxin (Lanoxin) 500 mcg 1X ONCE IV Last administered on 04/21/18 16:02; Start 04/21/18 at 15:45; Stop 04/21/18 at 15:46; Status DC Metoprolol Succinate (Toprol Xl) 25 mg 1X ONCE PO Last administered on at 16:02; Start 04/21/18 at 16:00; Stop 04/21/18 at 16:01; Status DC Metoprolol Succinate (Toprol Xl) 50 mg DAILY PO ; Start 04/22/18 at 09:00 Potassium Chloride (Klor-Con) 20 meq 1X ONCE PO Last administered on at 16:01; Start 04/21/18 at 15:30; Stop 04/21/18 at 15:35; Status DC Potassium Chloride (Klor-Con) 20 meq DAILYWBKFT PO ; Start 04/22/18 at 08:00 Potassium Chloride (Klor-Con) 40 meq 1X ONCE PO Last administered on at 12:36; Start 04/21/18 at 09:15; Stop 04/21/18 at 09:20; Status DC Comment Review of Relevant I have reviewed the following items raj (where applicable) has been applied. SUZANNE JACKSON MD Apr 21, 2018 16:25
[2018-04-21 19:49] VITALS: BP 117/80
[2018-04-21] MEDS: TEMAZEPAM 7.5 MG CAPSULE PO PRN (21:21)
[2018-04-21] MEDS: SIMVASTATIN 10 MG TABLET PO SCH (21:21)
[2018-04-21 23:03] VITALS: BP 91/60
[2018-04-21 23:18] LABS: BILIRUBIN,URINE NEGATIVE (NEG); CLARITY,URINE CLEAR; COLOR,URINE YELLOW; NITRITE,URINE NEGATIVE (NEG); PROTEIN,URINE NEGATIVE (NEG-TRACE)
[2018-04-21 23:22] LABS: BACTERIA,URINE 0 /HPF (0-FEW); HYALINE CASTS, URINE OCCASIONAL /HPF; RBC,URINE 0 /HPF (0-2); SQUAMOUS EPITHELIAL CELL,UR OCC /LPF; WBC,URINE OCC /HPF (0-4)
[2018-04-22 03:40] VITALS: BP 94/63
[2018-04-22 04:26] LABS: BASO # 0.1 x10^3/uL (0.0-0.2); BASO % 1 % (0-3); EOS # 0.2 x10^3/uL (0.0-0.7); EOS % 2 % (0-3); HEMATOCRIT 39.3 % (39.0-53.0); HEMOGLOBIN 12.9 g/dL (13.0-17.5); LYMPH # 1.1 x10^3/uL (1.0-4.8); LYMPH % 12 % (24-48); MEAN CORPUSCULAR HEMOGLOBIN 31 pg (25-35); MEAN CORPUSCULAR HGB CONC 33 g/dL (31-37); MEAN CORPUSCULAR VOLUME 93 fL (79-100); MONO # 1.3 x10^3/uL (0.0-1.1); MONO % 14 % (0-9); NEUT # 6.6 x10^3uL (1.8-7.7); NEUT % 72 % (31-73); PLATELET COUNT 144 x10^3/uL (140-400); RED BLOOD COUNT 4.21 x10^6/uL (4.30-5.70); RED CELL DISTRIBUTION WIDTH 19.5 % (11.5-14.5); WHITE BLOOD COUNT 9.2 x10^3/uL (4.0-11.0)
[2018-04-22 04:35] LABS: PROTHROMBIN TIME PATIENT 23.6 SEC (11.7-14.0)
[2018-04-22 04:52] LABS: CALCIUM 8.5 mg/dL (8.5-10.1); CREATININE 2.3 mg/dL (0.7-1.3); GFR 28.2; POTASSIUM 3.5 mmol/L (3.5-5.1)
[2018-04-22 07:00] VITALS: BP 104/66
[2018-04-22] MEDS ORDERED: POTASSIUM CHLORIDE 20 MEQ TABLET.ER. PO SCH (08:00)
[2018-04-22] MEDS: FUROSEMIDE 40 MG TABLET. PO SCH ×2 (08:37→14:07)
[2018-04-22] MEDS: APIXABAN 5 MG TABLET. PO SCH (08:37)
[2018-04-22] MEDS: SPIRONOLACTONE 25 MG TABLET PO SCH (08:37)
[2018-04-22] MEDS: BENZONATATE 100 MG CAPSULE. PO SCH ×2 (08:38→14:06)
[2018-04-22] MEDS ORDERED: METOPROLOL SUCC 24HR ER 50 MG TAB.ER.24H. PO SCH (09:00)
[2018-04-22] MEDS: SENNOSIDES/DOCUSATE 8.6/50MG TABLET. PO SCH (09:00)
--- NOTE | 2018-04-22 09:11 | PDOC ---
CARDIO Progress Notes Date and Time Date of Service 04/22/18 Time of Evaluation 0905 Subjective Subjective: No Chest Pain, No shortness of breath, No Palpitations Vitals Vitals Vital Signs Date Time Temp Pulse Resp B/P (MAP) Pulse Ox O2 Delivery O2 Flow Rate FiO2 04/22/18 08:38 97 04/22/18 07:00 97.5 18 104/66 (79) 89 Nasal Cannula 97.5 04/22/18 03:40 2.0 Weight Weight [ ] Input and Output Intake and Output Intake and Output 04/22/18 07:00 Intake Total 620 ml Output Total 1500 ml Balance -880 ml Intake Oral 620 ml Output Urine Total 1500 ml Laboratory Labs Laboratory Tests Test 04/21/18 12:10 04/21/18 22:45 04/22/18 04:05 Prothrombin Time 17.6 SEC (11.7-14.0) 23.6 SEC (11.7-14.0) Prothromb Time International Ratio 1.5 (0.8-1.1) 2.2 (0.8-1.1) Urine Collection Type Unknown Urine Color Yellow Urine Clarity Clear Urine pH 7.0 Urine Specific [place] 1.010 Urine Protein Negative mg/dL (NEG-TRACE) Urine Glucose (UA) Negative mg/dL (NEG) Urine Ketones (Stick) Negative mg/dL (NEG) Urine Blood Negative (NEG) Urine Nitrite Negative (NEG) Urine Bilirubin Negative (NEG) Urine Urobilinogen Dipstick 2.0 mg/dL (0.2 mg/dL) Urine Leukocyte Esterase Negative (NEG) Urine RBC 0 /HPF (0-2) Urine WBC Occ /HPF (0-4) Urine Squamous Epithelial Cells Occ /LPF Urine Bacteria 0 /HPF (0-FEW) Urine Hyaline Casts Occasional /HPF Urine Mucus Slight /LPF White Blood Count 9.2 x10^3/uL (4.0-11.0) Red Blood Count 4.21 x10^6/uL (4.30-5.70) Hemoglobin 12.9 g/dL (13.0-17.5) Hematocrit 39.3 % (39.0-53.0) Mean Corpuscular Volume 93 fL (79-100) Mean Corpuscular Hemoglobin 31 pg (25-35) Mean Corpuscular Hemoglobin Concent 33 g/dL (31-37) Red Cell Distribution Width 19.5 % (11.5-14.5) Platelet Count 144 x10^3/uL (140-400) Neutrophils (%) (Auto) 72 % (31-73) Lymphocytes (%) (Auto) 12 % (24-48) Monocytes (%) (Auto) 14 % (0-9) Eosinophils (%) (Auto) 2 % (0-3) Basophils (%) (Auto) 1 % (0-3) Neutrophils # (Auto) 6.6 x10^3uL (1.8-7.7) Lymphocytes # (Auto) 1.1 x10^3/uL (1.0-4.8) Monocytes # (Auto) 1.3 x10^3/uL (0.0-1.1) Eosinophils # (Auto) 0.2 x10^3/uL (0.0-0.7) Basophils # (Auto) 0.1 x10^3/uL (0.0-0.2) Sodium Level 140 mmol/L (136-145) Potassium Level 3.5 mmol/L (3.5-5.1) Chloride Level 100 mmol/L (98-107) Carbon Dioxide Level 30 mmol/L (21-32) Anion Gap 10 (6-14) Blood Urea Nitrogen 61 mg/dL (8-26) Creatinine 2.3 mg/dL (0.7-1.3) Estimated GFR (Cockcroft-Gault) 28.2 Glucose Level 81 mg/dL (70-99) Calcium Level 8.5 mg/dL (8.5-10.1) Review of Systems Constitutional: yes: alert, oriented Ears/Nose/Throat: Yes: no symptom reported Eyes: Yes: no symptom reported Pulmonary: Yes no symptom reported Cardiovascular: Yes no symptom reported Gastrointestional: Yes: no symptom reported Genitourinary: Yes: no symptom reported Musculoskeletal: Yes: no symptom reported Skin: Yes no symptom reported Psychiatric/Neurological: Yes: no symptom reported Endocrine: Yes: no symptom reported Physical Exam HEENT: Neck Supple W Full Motion Chest: Symmetric LUNGS: Other (basilar crackles) Heart: S1S2, murmurs (2/6 CECILY), irregularly irregular (AFIB ) Abdomen: Soft N/T Extremities: No Calf Tenderness, Other (3+ bilateral LE pitting edema) Neurology: alert, oriented, follow commands Assessment Assessment 1. Syncope: Brief. multifactorial with likely inadequate hydration with lasix use and AFIB RVR with vasovagal component. Negative for orthostasis. 2. Chronic AFIB: better controlled overnight with increased BB 3. Acute on chronic diastolic/systolic CHF: compensated. EF 20%. off milrinone 4. MUNA on CKD: Cr better at 2.3. unclear baseline. Nephrology following 5. CAD: past CABGx5, clinically stable. 6. ICM with s/p AICD: [employer], recent interrogation revealed normal function with no ventricular arrhythmias. 7. Valvular insufficiency: prior mod MR/mod-severe TR now mod MR and mild TR 8. HTN: low normotensive 9. HLP Recommendations Continue Lasix therapy for optimization. Outpt nephrology f/u Continue with Toprol for rate control. Eliquis for stroke prevention. Discussed HR and BP monitoring. Is to notify our office if HR consistently >120 or SBP <90 until back under care of primary pressed or blown glass worker. Follow up with his primary pressed or blown glass worker when back to [place]; has already been in contact with provider. DARRIUS LÓPEZ APRN Apr 22, 2018 09:11
[2018-04-22] MEDS ORDERED: APIX5TAB PO (10:37)
[2018-04-22] MEDS ORDERED: POTA20TA4 PO (10:37)
[2018-04-22] MEDS ORDERED: METO50TA4 PO (10:37)
[2018-04-22] MEDS ORDERED: SPIR25TA PO (10:37)
[2018-04-22] MEDS ORDERED: FURO40TA4 PO (10:37)
[2018-04-22 11:00] VITALS: BP 85/65
--- NOTE | 2018-04-22 13:35 | PDOC3 ---
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 He was sent for syncope, could 2/2 dehydration and vasovagal. ICD integretation neg. cont rapid afib, BP lower side, required milrinone drip. HR better with metoprolol increased to 50mg daily,and extra dose of dig. xarelto held since INR high and MUNA, switch to eliquis. Cr better with cont lasix. dc home to [place] with own card and renal in [place] with toprolol, eliquis , lasix, aldactone. General: Alert, Cooperative, No acute distress Heart: Other (irregular) Abdomen: Soft Extremities: No clubbing, Other (1+ edema) Skin: No breakdown, No significant lesion, Other (bilateral LE hyperpigmentation) Disposition home CONDITION AT DISCHARGE: Improved Scheduled Apixaban (Eliquis), 5 MG PO BID Arginine Hcl (L-Arginine), 1,000 MG PO DAILY, (Reported) Azelastine Hcl (Azelastine Hcl), 2 SPRAY NS BID, (Reported) Biotin (Biotin), 5,000 MCG PO DAILY, (Reported) Fluticasone Propionate (Fluticasone Propionate Nasal [place]), 2 SPRAY NS DAILY, ( Reported) Furosemide (Furosemide), 40 MG PO BID92 Lactobacillus Acidophilus (Acidophilus Lactobacillus), 1 EACH PO DAILY, ( Reported) Metoprolol Succinate (Toprol Xl), 50 MG PO DAILY Multivit-Min/FA/Lycopen/Lutein (Centrum Silver Men Tablet), 1 EACH PO DAILY, ( Reported) [place]-3S/Dha/Epa/Fish Oil (Fish Oil 1,000 mg Softgel), 1 EACH PO TIDBFRMEAL, ( Reported) Potassium Chloride (Klor-Con M20), 20 MEQ PO DAILYWBKFT Simvastatin (Simvastatin), 5 MG PO HS, (Reported) Spironolactone (Aldactone), 25 MG PO DAILY Ubidecarenone (Coq-10), 100 MG PO DAILY, (Reported) Discontinued Medications Carvedilol (Carvedilol), 1 TAB PO BID, (Reported) Cider Vinegar (Apple Cider Vinegar), 600 MG PO BID, (Reported) Cinnamon Bark (Cinnamon), 1,000 MG PO DAILY, (Reported) Coconut Oil (Coconut Oil), 1,000 MG PO BID, (Reported) Flaxseed Oil (Flax Oil), 1,000 MG PO TIDBFRMEAL, (Reported) Furosemide (Furosemide), 1 TAB PO DAILY, (Reported) Garlic (Garlic), 1,000 MG PO DAILYWBKFT, (Reported) Metolazone (Metolazone), 10 MG PO DAILY, (Reported) Milk Thistle (Milk Thistle), 175 MG PO DAILY, (Reported) Potassium Gluconate (Potassium Gluconate), 99 MG PO DAILY, (Reported) Rivaroxaban (Xarelto), 1 TAB PO DAILY, (Reported) Discontinued Reason: CHANGE Rivaroxaban (Xarelto), 15 MG PO DAILYWSUP, (Reported) Turmeric/Turmeric Ext/Pepr Ext (Turmeric Complex 500 mg Cap), 1 EACH PO DAILY, ( Reported) POLLY OSEI MD Apr 22, 2018 13:35
[2018-04-22 15:34] LABS: UR PROTEIN RD 9.3 mg/dL (Not Estab.)
--- NOTE | 2018-04-22 17:52 | PDOC ---
PROGRESS NOTES Assessment Assessment Syncope. AFib. CAD. CHF, EF 20%. HTN. Renal failure. Pneumonia, atypical mycobacterial ? Urinary incontinence. Pacemaker in site. RECOMMENDATIONS/PLAN: Continue medical treatment. Continue cardiac treatment. OT/PT. FU with PCP. FU with Cardiology. Past Medical History Cardiovascular: CAD (CABG x5), CHF, HTN Pulmonary: Pneumonia (Atypical mycobacterial PNA) GI: No pertinent hx Heme/Onc: No pertinent hx Hepatobiliary: No pertinent hx Psych: No pertinent hx Infectious disease: Other (Atypical pneumonia) ENT: Allergic Rhinitis Renal/: No pertinent hx Endocrine: No pertinent hx Dermatology: No pertinent hx Past Surgical History Pacemaker (AICD), CABG Family History Chronic Bronchitis, Coronary Artery Disease Social History Smoke: No ALCOHOL: none Drugs: None ALLERGY: NKDA MEDICATIONS: Refer to MAR REVIEW OF SYSTEMS: Constitutional: No malnutrition, weight loss, cachexia. Head: No traumatic brain or head injury. Skin: No edema, or rash. Ear: No infection. Eyes: No vision loss, or diplopia. Nose: No bleeding or purulent discharges. Hearing: Hearing loss. Neck: No injury. Cardiac: CAD, CHF, Pacemaker Placement, HTN. Pulmonary: No pneumonia, CPOD. GI: No GI Ulcer, GI bleeding Urinary/genital: incontinence. Endocrine: No cousin face, craniofacial dysmorphism, polydactyly. Skeletomuscular: generalized weakness. Neurological: see HP. Psychiatric: Denies drug use/abuse. Otherwise, not [id number] review of systems. PHYSICAL EXAMINATION: General appearance in no acute distress. HEENT: Normocephalic and nontraumatic. Eyes, nose, ears, and throat are unremarkable. Hearing decrease. Neck is supple. No lymphadenopathy. No bruits are heard over the carotid artery. No Crepitus. Cardiovascular: S1, S2, regular rate and rhythm. Pulmonary: decreased to auscultation bilaterally. Abdomen: Bowel sounds are positive. Extremities: No rash, lesions, or edema. No restriction of range of motion NEUROLOGICAL EXAMINATION: Awake. Oriented to time, place and person. PERRL. EOMI. CN: no focal findings. Muscle tone: within normal. Muscle strength: 4 DTR: 1-2 Plantar reflex: Neutral response bilaterally Gait: Able to walk slowly. Sensory exam: no abnormal findings. No cerebellar signs elicited. F-T-N test fine. Objective Objective Vital Signs Date Time Temp Pulse Resp B/P (MAP) Pulse Ox O2 Delivery O2 Flow Rate FiO2 04/22/18 11:00 97.6 93 18 85/65 (72) 93 Room Air 97.6 04/22/18 03:40 2.0 Intake and Output 04/22/18 07:00 Intake Total 620 ml Output Total 1500 ml Balance -880 ml Intake Oral 620 ml Output Urine Total 1500 ml Vitals Signs Vitals VS - Last 72 Hours, by Label Date Time Temp Pulse Resp B/P (MAP) Pulse Ox O2 Delivery O2 Flow Rate FiO2 04/22/18 11:00 97.6 93 18 85/65 (72) 93 Room Air 97.6 04/22/18 08:38 97 04/22/18 08:05 Room Air 04/22/18 07:00 97.5 90 18 104/66 (79) 89 Nasal Cannula 97.5 04/22/18 03:40 98.3 77 18 94/63 (73) 93 Nasal Cannula 2.0 98.3 04/21/18 23:03 98.2 76 20 91/60 (70) 93 Nasal Cannula 2.0 98.2 04/21/18 20:00 Room Air 04/21/18 19:49 98.2 90 16 117/80 (92) 96 Room Air 98.2 04/21/18 16:02 113 111/72 04/21/18 16:02 113 111/72 04/21/18 15:12 98.0 113 18 111/72 (85) 97 Nasal Cannula 98.0 04/21/18 12:34 116 102/71 04/21/18 10:59 98.2 121 18 82/81 (81) 91 Nasal Cannula 98.2 04/21/18 09:28 Room Air 3.0 04/21/18 08:00 Room Air 04/21/18 07:00 98.3 103 18 97/67 (77) 96 Nasal Cannula 3.0 98.3 Laboratory Laboratory Laboratory Tests Test 04/21/18 22:45 04/22/18 04:05 Urine Collection Type Unknown Urine Color Yellow Urine Clarity Clear Urine pH 7.0 Urine Specific [place] 1.010 Urine Protein 9.3 mg/dL (Not Estab.) Urine Glucose (UA) Negative mg/dL (NEG) Urine Ketones (Stick) Negative mg/dL (NEG) Urine Blood Negative (NEG) Urine Nitrite Negative (NEG) Urine Bilirubin Negative (NEG) Urine Urobilinogen Dipstick 2.0 mg/dL (0.2 mg/dL) Urine Leukocyte Esterase Negative (NEG) Urine RBC 0 /HPF (0-2) Urine WBC Occ /HPF (0-4) Urine Squamous Epithelial Cells Occ /LPF Urine Bacteria 0 /HPF (0-FEW) Urine Hyaline Casts Occasional /HPF Urine Mucus Slight /LPF Urine Creatinine 49.6 mg/dL (Not Estab.) Urine Protein/Creatinine Ratio 188 mg/g creat (0-200) White Blood Count 9.2 x10^3/uL (4.0-11.0) Red Blood Count 4.21 x10^6/uL (4.30-5.70) Hemoglobin 12.9 g/dL (13.0-17.5) Hematocrit 39.3 % (39.0-53.0) Mean Corpuscular Volume 93 fL (79-100) Mean Corpuscular Hemoglobin 31 pg (25-35) Mean Corpuscular Hemoglobin Concent 33 g/dL (31-37) Red Cell Distribution Width 19.5 % (11.5-14.5) Platelet Count 144 x10^3/uL (140-400) Neutrophils (%) (Auto) 72 % (31-73) Lymphocytes (%) (Auto) 12 % (24-48) Monocytes (%) (Auto) 14 % (0-9) Eosinophils (%) (Auto) 2 % (0-3) Basophils (%) (Auto) 1 % (0-3) Neutrophils # (Auto) 6.6 x10^3uL (1.8-7.7) Lymphocytes # (Auto) 1.1 x10^3/uL (1.0-4.8) Monocytes # (Auto) 1.3 x10^3/uL (0.0-1.1) Eosinophils # (Auto) 0.2 x10^3/uL (0.0-0.7) Basophils # (Auto) 0.1 x10^3/uL (0.0-0.2) Prothrombin Time 23.6 SEC (11.7-14.0) Prothromb Time International Ratio 2.2 (0.8-1.1) Sodium Level 140 mmol/L (136-145) Potassium Level 3.5 mmol/L (3.5-5.1) Chloride Level 100 mmol/L (98-107) Carbon Dioxide Level 30 mmol/L (21-32) Anion Gap 10 (6-14) Blood Urea Nitrogen 61 mg/dL (8-26) Creatinine 2.3 mg/dL (0.7-1.3) Estimated GFR (Cockcroft-Gault) 28.2 Glucose Level 81 mg/dL (70-99) Calcium Level 8.5 mg/dL (8.5-10.1) Medication Medications Current Medications Metoprolol Succinate (Toprol Xl) 50 mg DAILY PO Last administered on 04/22/18at 08:38; Start 04/22/18 at 09:00; Stop 04/22/18 at 14:43; Status DC Potassium Chloride (Klor-Con) 20 meq DAILYWBKFT PO Last administered on at 08:38; Start 04/22/18 at 08:00; Stop 04/22/18 at 14:43; Status DC Comment Review of Relevant I have reviewed the following items raj (where applicable) has been applied. SUZANNE JACKSON MD Apr 22, 2018 17:52
== END 2018-04-22 14:38 | disposition home or self-care (01) | DRG 682 ==
LOC: ER 11:49 → ED HOLD 14:12 → 2 NORTH 19:48
PROVIDERS: ADMIT Internal Medicine; ATTEND Internal Medicine
DX: N17.9 Acute kidney failure, unspecified (principal); I50.43 Acute on chronic combined systolic (congestive) and diastolic (congestive) heart failure; J18.9 Pneumonia, unspecified organism; I13.0 Hypertensive heart and chronic kidney disease with heart failure and stage 1 through stage 4 chronic kidney disease, or unspecified chronic kidney disease; J96.11 Chronic respiratory failure with hypoxia; E87.3 Alkalosis; D68.9 Coagulation defect, unspecified; I42.9 Cardiomyopathy, unspecified; I42.8 Other cardiomyopathies; N18.4 Chronic kidney disease, stage 4 (severe); I48.2 Chronic atrial fibrillation; I25.10 Atherosclerotic heart disease of native coronary artery without angina pectoris; I95.1 Orthostatic hypotension; E87.6 Hypokalemia; M47.812 Spondylosis without myelopathy or radiculopathy, cervical region; I25.5 Ischemic cardiomyopathy; E78.5 Hyperlipidemia, unspecified; M19.90 Unspecified osteoarthritis, unspecified site; E86.0 Dehydration; R32 Unspecified urinary incontinence; Z95.810 Presence of automatic (implantable) cardiac defibrillator; Z95.1 Presence of aortocoronary bypass graft; Z79.01 Long term (current) use of anticoagulants; Z82.5 Family history of asthma and other chronic lower respiratory diseases; Z82.49 Family history of ischemic heart disease and other diseases of the circulatory system
CPT/HCPCS: 36415; 70450; 71045; 72125; 80048; 80053; 81001; 82570; 83690; 83735; 83880; 84156; 84443; 84484; 85025; 85610; 85730; 93005; 93306; G0480; J1160; J1940; J2260; 97112; 97530; 99285-25